=== PATIENT | male | born 1935 | race Caucasian/White ===

== ENCOUNTER 2019-07-19 12:38 | Outpatient (CLI) | payer MEDICARE, SELFPAY ==
--- NOTE | ~2019-07-19 | US_ITS ---
EXAMINATION: US renal BI DATE: 07/19/2019 13:12 INDICATION: Chronic TECHNIQUE: Multiple grayscale and Doppler ultrasound images of the kidneys were obtained. COMPARISON: None. FINDINGS: The right kidney measures 10.2 x 4.1 x 4.9 cm. The left kidney measures 10.1 x 4.3 x 4.9 cm . The kidneys demonstrate increased parenchymal echogenicity. There is mild cortical atrophy of the k idneys. There is no hydronephrosis. The bladder is normal. IMPRESSION: 1. Medical renal disease Reviewed, dictated and finalized at location A. IMPRESSION: 1. Medical renal disease
== END 2019-07-19 12:39 | disposition home or self-care (01) ==
LOC: ANHIMG 12:48
PROVIDERS: PCP Family Medicine; Visit Provider Internal Medicine Nephrology
DX: N18.3 Chronic kidney disease, stage 3 (moderate) (principal)
CPT/HCPCS: 76775

== ENCOUNTER 2020-06-01 08:20 | Inpatient (IN) | payer MEDICARE, SELFPAY ==
[2020-06-01] VITALS (18 sets, daily range): BP systolic 111–171; BP diastolic 61–110; PULSE 81–132; RESP 16–29; TEMP 36.6–37.2; O2SAT 94–97; BMI 28.2
--- NOTE | 2020-06-01 | ECHO_ITS ---
Patient Info Name: Bunny Shi Age: 84 years : 1935 Gender: Male Ht: 69 in Wt: 192 lbs BSA: 2.08 m2 HR: 110 bpm BP: 145 / 92 mmHg Heart Rhythm: Atrial Fibrillation Technical Quality: Fair Exam Date: 06/01/2020 3:41 PM Exam Location: [facility] Patient Status: Inpatient Admit Date: 06/01/2020 Staff Ordering Physician: Silvia Ye NP Director Of Home Health Services: Waqas Barber RDCS Attending Provider: Kellie Weller MD Referring Physician: Ephraim MCWILLIAMS; Exam Type: CA echo dop color flow w con Study Info Indications R06.02 - Shortness of breath Complete two-dimensional, color flow and Doppler transthoracic echocardiogram is performed with contrast to opacify the left ventricle and to improve the deliniation of the left ventricle endocardial borders. Contrast/Agitated Saline Contrast/Ag. Saline: Definity Amount: 2.00 ml Administered By: Elvia Ruvalcaba RN Existing IV Access: Yes History/Risk Factors Atrial fibrillation; SOB, CAD, CKD3, HTN, pHTN. Summary 1. Left ventricular chamber dimension is normal. 2. Left ventricular systolic function is normal, estimated at 60-65%. 3. There is mildly increased left ventricular wall thickness. 4. Left atrial chamber dimension is severely enlarged. 5. There is mild aortic valve stenosis with a peak velocity of 190.26 cm/s, mean gradient of 6 mmHg, and aortic valve area of 1.60 cm2. 6. There is no aortic valve regurgitation. 7. There is severe aortic valve calcification. 8. There is trace tricuspid valve regurgitation. 9. Mild pulmonary hypertension, estimated pulmonary arterial systolic pressure is 42 mmHg. Left Ventricle Left ventricular chamber dimension is normal. Left ventricular systolic function is normal, estimated at 60-65%. There is mildly increased left ventricular wall thickness. The left ventricular diastolic function is indeterminate. Right Ventricle Right ventricular chamber dimension is normal. Right ventricular systolic function is normal. Left Atria Left atrial chamber dimension is severely enlarged. Right Atria Right atrial chamber dimension is not well visualized. Aortic Valve The aortic valve is probable trileaflet. There is mild aortic valve stenosis with a peak velocity of 190.26 cm/s, mean gradient of 6 mmHg, and aortic valve area of 1.60 cm2. There is no aortic valve regurgitation. There is severe aortic valve calcification. Pulmonic Valve The pulmonic valve is not well visualized. Mitral Valve The mitral valve has thickened leaflets. There is trace mitral valve regurgitation. The mitral valve annulus is severely calcified. Tricuspid Valve The tricuspid valve leaflets are normal. There is trace tricuspid valve regurgitation. Mild pulmonary hypertension, estimated pulmonary arterial systolic pressure is 42 mmHg. Pericardium/Pleural The pericardium appears normal. There is trivial pericardial effusion. Inferior Vena Cava Dilated inferior vena cava with >50% collapse upon inspiration consistent with elevated right atrial pressure, 10 mmHg. Aorta The aortic root size at the sinus of Valsalva is mildly dilated. There is mild aortic atherosclerosis. Left Ventricular Outflow Tract Name Value Normal LVOT 2D
--- NOTE | ~2020-06-01 | XR_ITS ---
EXAMINATION: XR chest 1V portable DATE: 06/08/2020 05:57 INDICATION: Pneumonia. TECHNIQUE: A single frontal view of the chest was obtained. COMPARISON: Chest single view 06/04/20 FINDINGS: There are airspace opacities in right mid and upper lung zones. No pleural effusion or pneu mothorax. The heart size is normal. IMPRESSION: 1. Airspace opacities in right mid and upper lung zones with interval improvement, consistent with pn eumonia. Reviewed, dictated and finalized at location A. OR MECHANICAL PROJECT MANAGER IMPRESSION: 1. Airspace opacities in right mid and upper lung zones with interval improveme nt, consistent with pneumonia.
--- NOTE | ~2020-06-01 | XR_ITS ---
EXAMINATION: XR chest 1V portable EXAM DATE: 06/01/2020 09:17 INDICATION: Dizziness. TECHNIQUE: Portable AP frontal chest x-ray was obtained. There is no prior study for comparison. FINDINGS: There is subsegmental ill-defined right upper lobe acute airspace disease appearance most c onsistent with pneumonia. Consider 2-4 week follow-up chest x-ray. The lungs are otherwise clear. There are no pleural effusions. The cardiomediastinal silhouette is within normal limits. There is no pneumothorax suspected. The bones and soft tissues are unremarkab le. IMPRESSION: Ill-defined segment right upper lobe airspace disease, likely pneumonia. Follow-up indica liliya. Reviewed, dictated and finalized at location B. GRATED LOGISTICS SUPPORT MANAGER IMPRESSION: Ill-defined segment right upper lobe airspace disease, likely pneum onia. Follow-up indicated.
--- NOTE | ~2020-06-01 | US_ITS ---
EXAMINATION: US venous doppler [facility] DATE: 06/01/2020 14:33 INDICATION: Shortness of breath. TECHNIQUE: Grayscale ultrasound images without and with compression and Doppler ultrasound images of the bilateral lower extremity veins were obtained. COMPARISON: None. FINDINGS: The visualized portions of right common femoral vein, profunda (deep) femoral vein, femoral vein, pop liteal vein, peroneal veins, posterior tibial veins, and greater saphenous vein outflow are patent. The visualized portions of left common femoral vein, profunda femoral vein, femoral vein, popliteal v ein, peroneal veins, posterior tibial veins, and greater saphenous vein outflow are patent. IMPRESSION: 1. No deep venous thrombosis. Reviewed, dictated and finalized at location A. N WASHER
--- NOTE | ~2020-06-01 | XR_ITS ---
EXAMINATION: XR chest 1V portable DATE: 06/04/2020 11:01 INDICATION: Fever. Pneumonia. TECHNIQUE: A single frontal view of the chest was obtained. COMPARISON: Chest single view 06/01/2020 FINDINGS: There are airspace opacities in right mid and upper lung zones. No pleural effusion or pneu mothorax. The heart size is normal. IMPRESSION: 1. Worsened airspace opacities in right mid and upper lung zones, consistent with pneumonia. Reviewed, dictated and finalized at location A. ON BUYER IMPRESSION: 1. Worsened airspace opacities in right mid and upper lung zones, consistent wi th pneumonia.
--- NOTE | ~2020-06-01 | NM_ITS ---
EXAMINATION: NM pulmonary perfusion DATE: 06/01/2020 14:07 INDICATION: Shortness of breath. TECHNIQUE: 5.5 mCi Tc-99m MAA was administered intravenously for perfusion images. Scintigraphic laura ges of the chest were obtained. COMPARISON: Chest single view 06/01/2020 FINDINGS: Perfusion images show moderate sized and large defects in right upper lobe. There are moderate-sized defects in left upper lobe and small defects in left lower lobe. IMPRESSION: 1. Nondiagnostic (intermediate probability for pulmonary embolism). Reviewed, dictated and finalized at location A. L MAKER
--- NOTE | ~2020-06-01 | US_ITS ---
US abdomen limited INDICATION: Elevated liver enzyme tests. PROCEDURE: Realtime right upper abdominal ultrasound. COMPARISON: No prior studies for comparison. FINDINGS: The pancreas is normal without focal mass or pancreatic ductal dilation. Liver echotexture is normal without focal mass or intrahepatic biliary dilatation. There is normal directional flow i n the portal vein. The gallbladder is normal without stones, gallbladder wall thickening or pericholecystic fluid. Comm on bile duct measures 6 mm. No sonographic Brown's sign. IMPRESSION: 1: Normal limited abdominal ultrasound. Reviewed, dictated and finalized at location A. TSPERSONS
--- NOTE | ~2020-06-01 | CT_ITS ---
EXAMINATION: CT brain wo con DATE: 06/01/2020 10:20 INDICATION: Dizziness. TECHNIQUE: Computed tomography (CT) of the head was performed without intravenous contrast. The mA wa s adjusted according to patient size. Iterative reconstruction technique was employed. The dose-lengt h product was 681.00 mGy-cm. COMPARISON: Brain MRI 12/22/2016 FINDINGS: There are scattered areas of low attenuation in the cerebral white matter, which is within normal limits for the patient's age. There is no intracranial hemorrhage, acute infarction, or abnorm al intracranial mass lesion. The ventricles are normal in size. There are likely changes of ocular le ns replacement surgeries. There is mild mucosal thickening in paranasal sinuses. The mastoid air cell s are normal. IMPRESSION: 1. Normal aging brain. Reviewed, dictated and finalized at location A. BBLIZER IMPRESSION: 1. Normal aging brain.
--- NOTE | 2020-06-01 08:27 | ECG_ITS ---
Measurements Intervals Evans Rate: 129 P: WI: 0 QRS: 90 QRSD: 134 T: -24 QT: 318 QTc: 466 Interpretive Statements ATRIAL FIBRILLATION WITH RAPID VENTRICULAR RESPONSE RIGHT BUNDLE BRANCH BLOCK BASELINE ARTIFACT- I, II, III, AVR, AVF, V1-V3, V6 ATYPICAL ECG Electronically Signed On 06-01-2020 8:38:39 FIREFIGHTER MARINE by Hakan Paulson D.O.
[2020-06-01 08:36] LABS: Basophils Percent Auto 0.3 % (0.2-1.2); Hematocrit 38.2 % (42.0-52.0); Hemoglobin 12.8 g/dL (14.0-18.0); Immature Granulocyte Absolute 0.04 K/mm3 (0.00-0.031); Immature Granulocyte Percent A 0.4 % (0-0.5); Lymphocytes Absolute Auto 0.65 K/mm3 (0.9-3.2); Mean Corpuscular HGB Conc 33.5 g/dl (32-36); Mean Corpuscular Hemoglobin 29.8 pg (26-34); Mean Platelet Volume 11.5 fl (7.4-10.4); Monocytes Percent Auto 10.7 % (2.6-8.5); Neutrophils Absolute Auto 7.6 K/mm3 (1.3-6.7); Neutrophils Percent Auto 81.6 % (45.5-73.1); Platelet Count Result 149 k/mm3 (150-375); Red Blood Count 4.29 M/mm3 (4.6-6.20); Red Cell Distribution Width 15.3 % (11.5-14.5); White Blood Count 9.3 K/mm3 (4.5-10.0)
[2020-06-01 08:50] LABS: Anion Gap 8 mmol/L (8-16); Blood Urea Nitrogen 39 mg/dL (9-20); Calcium 8.2 mg/dL (8.4-10.2); Carbon Dioxide 27 mmol/L (22-30); Chloride 101 mmol/L (98-107); Estimated CRCL calculation 24 ml/min; Estimated Glomerular Filt Rate 29; Glucose 127 mg/dL (75-110); Potassium 3.7 mmol/L (3.4-5.0); Sodium 136 mmol/L (137-145)
[2020-06-01] MEDS: dilTIAZem HCl INJ 25 MG/5 ML VIAL 10 MG IV PUSH (08:55)
--- NOTE | 2020-06-01 08:57 | ED.DIZZY ---
HPI - Dizziness General Chief Complaint: Dizziness Stated Complaint: dizziness Time Seen by Provider: 06/01/20 08:48 Source: patient and family Mode of arrival: ambulatory Limitations: no limitations History of Present Illness HPI Narrative: 84 years old white male presents with dizziness for a while got worse over the last 2 weeks. Patient reports sometimes if he bends over he falls down on the floor. Patient also report shortness of breath and chest pain for years. History of atrial fibrillation on Coumadin. Currently patient is asymptomatic while laying down in bed. Patient denies history of Covid or exposure to anybody having Covid. Patient denies focal neuro deficit MD elicited complaint: dizziness and lightheadedness Related Data Home Medications Medication Instructions Recorded Confirmed aspirin 81 mg chewable tablet 81 mg PO DAILY 06/13/19 02/05/20 cholecalciferol (vitamin D3) 50 2,000 unit PO DAILY 06/13/19 02/05/20 mcg (2,000 unit) capsule mecobalamin (vitamin B12) 1,000 mcg PO 06/13/19 02/05/20 mcg chewable tablet propylene glycol 0.6 % eye drops 1 drop EACH EYE BID PRN ml 06/13/19 02/05/20 atorvastatin 40 mg tablet 80 mg PO DAILY tablet 11/13/19 02/05/20 gabapentin 300 mg capsule 300 mg PO BID cap 11/13/19 02/05/20 isosorbide mononitrate 30 mg 60 mg PO DAILY tablet 11/13/19 02/05/20 tablet,extended release 24 hr sotalol 80 mg tablet 40 mg PO BID tablet 11/13/19 02/05/20 Allergies Allergy/AdvReac Type Severity Reaction Status Date / Time No Known Allergies Allergy Verified 06/01/20 08:28 Review of Systems Review of Systems: Narrative: CONSTITUTIONAL: Denies fever, chills, or sweats. EYES: Denies visual changes, redness, or discharge. ENT: Denies rhinorrhea, congestion, sore throat, or otalgia. CARDIOVASCULAR: Denies chest pain, palpitations, or edema. RESPIRATORY: Denies cough or dyspnea. GASTROINTESTINAL: Denies abdominal pain, nausea, vomiting, or diarrhea. GENITOURINARY: Denies dysuria or hematuria. SKIN: Denies rash or itching. MUSCULOSKELETAL: Denies back pain, joint pain, or myalgia. NEUROLOGIC: Denies headache, numbness, or weakness. PSYCHIATRIC: Denies anxiety or depression. [facility] Past Medical History Medical History (Updated 06/01/20 @ 10:11 by Monse Jarvis MD) BMI 28.0-28.9,adult BPH w/o urinary obs/LUTS CAD in [place] artery Carpal tunnel syndrome 2016 CKD (chronic kidney disease) stage 3, GFR 30-59 ml/min Cubital tunnel syndrome 2016 Dizziness and giddiness Dyslipidemia, goal LDL below 100 Essential (primary) hypertension GERD (gastroesophageal reflux disease) Glaucoma History of stroke Hx of supraventricular tachycardia Hypogonadism in male 08/2011 Mild aortic stenosis Neuropathy Paroxysmal atrial fibrillation Peripheral neuropathy Pre-diabetes 02/01/2017 Pulmonary hypertension Stroke Supraventricular tachycardia Umbilical hernia without mention of obstruction or gangrene 12/11/2017 Unspecified osteoarthritis, unspecified site Vitamin B12 deficiency Vitamin D deficiency Surgical History Surgical History History of shoulder surgery right - around 1989 Hx of total knee arthroplasty right - 2006 Dr. Brad George at [facility] Family History Family History Mother Hypertension Cerebrovascular accident Family history of malignant neoplasm of breast in first degree relative Father Family history of coronary artery disease Social History Social History Smoking status: Former smoker Second hand tobacco smoke exposure: No Smoking end date: 05/01/1965 Alcohol intake: current Substance use: never Substance use type: does not use Exam Narrative: Exam Narrative: General appearance: Well-developed, well-nourished Skin: Normal color Head: Normocephalic, nontraumatic Eyes: Clear conjun
[2020-06-01 09:25] LABS: Alanine Aminotransferase 45 U/L (4-50); Albumin Level 3.7 g/dL (3.5-5.1); Alkaline Phosphatase 70 U/L (38-126); Aspartate Amino Transferase 140 U/L (17-59)
[2020-06-01 09:29] LABS: INR 1.3; Prothrombin Time 16.5 Seconds (11.1-14.7)
[2020-06-01 09:43] LABS: Troponin I 0.056 ng/mL (0.000-0.034)
--- NOTE | 2020-06-01 11:46 | ADMGEN ---
This patient, Bunny Shi Jr., was admitted to IMU Room 203-01. Patient/family oriented to hospital policies and general routines including ID bracelet, bed and alarms, visiting hours, pain management, procedures, bathroom and other care routines, personal items, smoking policy, room service/diet, and visiting hours. Information on how to activate the Rapid Response Team has been discussed. Patient/Family are encouraged to report perceived risks to care and to ask questions if they do not understand what they are told or what they should do.
[2020-06-01 12:50] LABS: Troponin I 0.069 ng/mL (0.000-0.034)
--- NOTE | 2020-06-01 13:16 | PM.IMHP ---
H&P: HPI History of Present Illness Date/Time: 06/01/20 13:16 Chief Complaint: Shortness of breath and dizziness Narrative: Bunny Shi Jr. is a 84 year old male who has a history of atrial fibrillation that is paroxysmal. He is on Coumadin and states that he takes his Coumadin routinely. The patient states that he has been taking all his medications as prescribed for his AFib. He stated that Dr. Nguyễn is his sewer line photo inspector. The patient stated that he has been short of breath for approximately 1 week and is just getting worse. I asked him if it was a gradual thing AFib with a sudden onset he believes that it was a gradual thing. He stated he is more short of breath with exertion but I had noticed that the patient short of breath just laying there. He has no fever or chills no cough. He said he has not been exposed to COVID-19 that he is aware of. He does not have a cough, nausea or vomiting, or chills. The patient stated that he has been feeling dizzy for couple weeks now. He states when he leans forwards or bends over he feels like he is going to fall over. The patient did have a head CT which was negative and was read as a normal aging brain per Radiology. Upper lobe airspace disease likely pneumonia. The patient denies ever being diagnosed with congestive heart failure. He has a normal white count and is not coughing. So I do not suspect that this is pneumonia. His H&H is 12.8 and 38.2. But I am not sure where his baseline is his BUN is 39 creatinine is 2.2. First troponin is 0.069. The patient denies any chest pain. Cardiology has been consulted. The patient's INR is 1.2 which is subtherapeutic. Patient was given a dose of subcu Lovenox in the emergency room. The patient was found to be in AFib RVR. His sewer line photo inspector has been consulted. IV Cardizem push and then started on a drip. And he was also given subcu Lovenox. The patient is currently on room air. His heart rate is in the lower 100s. Patient is being admitted for observation on the date of service of 06/01/2020 Review of Systems Review of Systems: All systems reviewed & are unremarkable except as noted in HPI and below Constitutional: Constitutional: Reports as per HPI and Reports no additional constitutional complaints Eyes: Eyes: Reports as per HPI and Reports no additional eye complaints ENT: Reports system reviewed and no additional complaints, except as documented and Reports Normal hearing present Cardiovascular: Cardiovascular: Reports no additional cardiovascular complaints Respiratory: Respiratory: Reports no additional respiratory complaints and Reports no additional respiratory complaints Gastrointestinal: Gastrointestinal: Reports as per HPI and Reports no additional gastrointestinal complaints Musculoskeletal: Musculoskeletal: Reports no additional musculoskeletal complaints Integumentary/Breasts: Skin/Breast: Reports system reviewed and no additional complaints, except as docu and Reports as per HPI Neurologic: Reports system reviewed and no additional complaints, except as documented, Reports as per HPI and Reports Normal hearing present Psychiatric: Psychiatric: Reports no additional psychiatric complaints and Reports as per HPI Endocrine: Endocrine: Reports no additional endocrine complaints Hematologic/Lymphatic: Hematologic/Lymphatic: Reports no additional hematologic/lymphatic complaints Allergic/Immunologic: Allergic/Immunologic: Reports no additional allergic/immunologic complaints PMFSH Past Medical History Medical History BMI 28.0-28.9,adult BPH w/o urinary obs/LUTS CAD in [place] artery Carpal tunnel syndrome 2016 CKD (chronic kidney disease) stage 3, GFR 30-59 ml/min Cubital tunnel syndrome 2016 Dizziness and giddiness Dyslipidemia, goal LDL below 100 Essential (primary) hypertension GERD (gastroesophageal reflux disease) Glaucoma History of stroke Hx of supraventr
--- NOTE | 2020-06-01 14:18 | PCPTNOTE ---
Attempted PT evaluation this afternoon, patient at nuclear medicine, will attempt again later.
[2020-06-01 15:02] LABS: Anion Gap 7 mmol/L (8-16); Blood Urea Nitrogen 36 mg/dL (9-20); Calcium 8.3 mg/dL (8.4-10.2); Carbon Dioxide 30 mmol/L (22-30); Chloride 99 mmol/L (98-107); Estimated CRCL calculation 21 ml/min; Estimated Glomerular Filt Rate 25; Glucose 142 mg/dL (75-110); Potassium 3.7 mmol/L (3.4-5.0); Sodium 136 mmol/L (137-145)
--- NOTE | 2020-06-01 15:31 | PM.CNCAR ---
Assessment and Plan Assessment and plan (1) Atrial fibrillation with rapid ventricular response: Code(s): I48.91 - Unspecified atrial fibrillation Status: Acute Assessment and Plan: Previously controlled on low-dose sotalol 40 mg b.i.d.. SOB may in part secondary A.Fib. Patient has chronic bradycardia heart rate generally in the 50s as an outpatient. Patient claims compliance with his medications but presented with atrial fibrillation with rapid ventricular response. Chest x-ray suggestive right upper lobe consolidation possible pneumonia. Subtherapeutic INR 1.2 presentation. Enoxaparin bridging, continue warfarin goal INR 2-3. Heart rate better controlled on diltiazem infusion. Transition to oral regimen metoprolol tartrate 25 mg b.i.d. and observe tolerance.. Given renal failure progression will not resume sotalol. Check magnesium level, TSH If cardioversion deemed necessary he would require MITZI guidance as he presented subtherapeutic for an unknown period of time. (2) SOB (shortness of breath): Code(s): R06.02 - Shortness of breath Status: Acute Assessment and Plan: Patient does not appear to be in significant decompensated heart failure. Shortness of breath possibly related to atrial fibrillation and or right upper lobe infiltrate on chest x-ray. He has neutrophilic shift and a CBC although no elevation in white blood cell count or fever. Will check BNP, TSH. (3) Elevated troponin: Code(s): R77.8 - Other specified abnormalities of plasma proteins Status: Acute Assessment and Plan: Mild troponin elevation non VA troponin elevation secondary to renal failure not ACS or acute plaque rupture. Will review 2D echocardiogram when available to assess LV function, wall motion, pulmonary pressures, valve pathology. Further recommendation to follow. (4) CAD in [place] artery: Code(s): I25.10 - Atherosclerotic heart disease of hughes coronary artery without angina pectoris Status: Acute Assessment and Plan: No clear anginal symptoms. Continue statin, aspirin. (5) Dizziness and giddiness: Code(s): R42 - Dizziness and giddiness Status: Acute Assessment and Plan: Chronic but worse prior to presentation. Check orthostatic vital signs. Clinically patient appears to be somewhat dry. May recommend gentle hydration depending when orthostatics. Patient is not hypotensive today. However, he reports labile blood pressures historically as an outpatient. Will reintroduce antianginal therapy slowly based on BP, orthostatics and patient's symptoms. CT head normal aging brain without acute or old stroke apparent. PT OT Check urinalysis (6) CKD (chronic kidney disease) stage 3, GFR 30-59 ml/min: Code(s): N18.3 - Chronic kidney disease, stage 3 (moderate) Status: Acute Assessment and Plan: Mild acute on chronic renal failure baseline creatinine previously around 2. Followed by Nephrology as an outpatient. Monitor renal function closely. Avoid nephrotoxic agents. Hold on resuming losartan hydrochlorothiazide defer the stabilized. (7) Pulmonary hypertension: Code(s): I27.20 - Pulmonary hypertension, unspecified Status: Acute Assessment and Plan: 2D echo pending. (8) Subtherapeutic international normalized ratio (INR): Code(s): R79.1 - Abnormal coagulation profile Status: Acute Assessment and Plan: Subtherapeutic goal INR 2-3. Bridge with enoxaparin increased warfarin monitor for bleeding. (9) History of stroke: Code(s): Z86.73 - Personal history of transient ischemic attack (TIA), and cerebral infarction without residual deficits Status: Acute Assessment and Plan: Chronic dizziness may be a function of prior stroke, however, progressed nonetheless. History of Present Illness History of Present Illness Consult date/time: Date of service: 06/01/20 15:31 Cardiology consu
[2020-06-01] MEDS: ENOXAPARIN 100 MG/ML SYRINGE 85 MG SUB-Q (15:40)
[2020-06-01] MEDS: PERFLUTREN LIPID MICROSPHERES 1.5 ML VIAL DILUTED TO 10 ML TOTAL VOLUME IV PUSH (16:00)
[2020-06-01 16:20] LABS: D Dimer 1.44 ug/mL (<0.48)
[2020-06-01] MEDS: METOPROLOL TARTRATE 25 MG TABLET PO ×2 (17:22→23:19)
[2020-06-01 17:51] LABS: Add Urine Microscopic? YES; Appearance Urine Cloudy (Clear); Bacteria Urine Trace /hpf; Bilirubin Urine Negative (Negative); Blood Urine 3+ (Negative); Color Urine Yellow (Yellow); Glucose Urine UA Negative (Negative); Ketones Urine Negative (Negative); Leukocyte Esterase Ur Negative LEU/UL (NEGATIVE); Mucus Urine Rare /lpf; Nitrate Urine Negative (Negative); Protein Urine 2+ mg/dL (Negative); Specific Grav Ur 1.016 (1.001-1.035); Squamous Epithelial Cell Urine Rare /hpf (Few); WBC Urine 0-3 /hpf (0-3)
[2020-06-01 18:32] LABS: Magnesium 1.4 mg/dL (1.6-2.3)
[2020-06-01 18:39] LABS: NT Pro B Type Natriuretic Pept 4640 PG/ML (5-100)
[2020-06-02] VITALS (26 sets, daily range): BP systolic 102–155; BP diastolic 64–94; PULSE 80–121; RESP 16–24; TEMP 36.4–37.7; O2SAT 94–98
[2020-06-02 04:49] LABS: Basophils Percent Auto 0.4 % (0.2-1.2); Hematocrit 35.7 % (42.0-52.0); Hemoglobin 11.9 g/dL (14.0-18.0); Immature Granulocyte Absolute 0.04 K/mm3 (0.00-0.031); Immature Granulocyte Percent A 0.5 % (0-0.5); Lymphocytes Absolute Auto 0.87 K/mm3 (0.9-3.2); Mean Corpuscular HGB Conc 33.3 g/dl (32-36); Mean Corpuscular Hemoglobin 29.7 pg (26-34); Mean Platelet Volume 11.8 fl (7.4-10.4); Monocytes Percent Auto 12.2 % (2.6-8.5); Neutrophils Percent Auto 75.9 % (45.5-73.1); Platelet Count Result 145 k/mm3 (150-375); Red Blood Count 4.01 M/mm3 (4.6-6.20); White Blood Count 7.9 K/mm3 (4.5-10.0)
[2020-06-02 05:04] LABS: INR 1.3; Prothrombin Time 16.5 Seconds (11.1-14.7)
[2020-06-02 05:16] LABS: Anion Gap 7 mmol/L (8-16); Blood Urea Nitrogen 44 mg/dL (9-20); CRP 19.5 mg/dL (<1.0); Calcium 8.1 mg/dL (8.4-10.2); Carbon Dioxide 28 mmol/L (22-30); Chloride 102 mmol/L (98-107); Estimated CRCL calculation 22 ml/min; Estimated Glomerular Filt Rate 26; Glucose 108 mg/dL (75-110); Lipase 223 U/L (23-300); Magnesium 1.4 mg/dL (1.6-2.3); Potassium 3.5 mmol/L (3.4-5.0); Sodium 137 mmol/L (137-145)
[2020-06-02] MEDS: METOPROLOL TARTRATE 25 MG TABLET PO (08:57)
[2020-06-02] MEDS: ASPIRIN 81 MG CHEWABLE TABLET PO (08:57)
[2020-06-02] MEDS: MAGNESIUM SULFATE 3GM/D5W100ML 3 GM/100 ML BAG IVPB (10:59)
--- NOTE | 2020-06-02 14:24 | PM.IMPN ---
Progress Note: A&P Assessment and Plan (1) Atrial fibrillation with rapid ventricular response: Code(s): I48.91 - Unspecified atrial fibrillation Status: Acute Assessment and Plan: possibly from underlying pneumonia. Will start antibiotics for infection. patient was initially started on a Cardizem drip, but Cardiology switched him to Metoprolol 50 mg Q8hrs. Tele shows Afib with RVR at 120-130's. Normal EF 60-65%, mild LVH, mild aortic valve stenosis, severe aortic valve calcification. Mild pulmonary hypertension. The patient has been on Coumadin however today is INR subtherapeutic. Continue subcu Lovenox that is renally dosed while cardiology increases Coumadin Will check PT/INR daily. Continue monitoring. Appreciate Cardiology input. Will continue with Lovenox to we can bridge over to a therapeutic Coumadin. (2) SOB (shortness of breath): Code(s): R06.02 - Shortness of breath Status: Acute Assessment and Plan: Patient does report some shortness of breath, deep productive cough, and chest x-ray showed possible pneumonia in right upper lung field. Today is vitals did show, tachycardia, some tachypnea, and low-grade fever 99.7. Will order blood cultures Will start IV antibiotics for community-acquired pneumonia with azithromycin and IV ceftriaxone Sputum culture will be obtained Cornet will be ordered DuoNeb treatments with ipratropium and Xopenex Continue monitoring. Continue monitoring respiratory status and vitals. (3) Unspecified kidney failure: Qualifiers: Renal failure chronicity: unspecified chronicity Qualified Code(s): N19 - Unspecified kidney failure Code(s): N19 - Unspecified kidney failure Status: Acute Assessment and Plan: Patient stated that he does have chronic kidney disease was noted in his chart he has stage III. Unsure of patient's baseline creatinine, but he has been stable at 2.1 to 2.5 last few days. He appears euvolemic at this time. Continue to monitor. (4) Peripheral neuropathy: Qualifiers: Peripheral neuropathy type: polyneuropathy, unspecified Qualified Code(s): G62.9 - Polyneuropathy, unspecified Code(s): G62.9 - Polyneuropathy, unspecified Status: Acute Assessment and Plan: Continue with home medications. (5) Dizziness and giddiness: Code(s): R42 - Dizziness and giddiness Status: Acute Assessment and Plan: He reports the dizziness has been going on for a while but yesterday he decided to come in for further evaluation due to worsening symptoms as well as some confusion, generalized weakness, and he did trip and fall over the director dermatology. He denies any trauma other than some discomfort to his left hip area. Continue PT and OT therapy Continue checking orthostatics Q shift. Continue monitoring. (6) Dyslipidemia, goal LDL below 100: Code(s): E78.5 - Hyperlipidemia, unspecified Status: Acute Assessment and Plan: Continue with atorvastatin Time Spent With Patient Time with patient: 25 - 35 minutes Subjective Date/time seen: 06/02/20 14:24 Interval history: Date of service 06/02/2020: Patient states he feels about the same today, feels off . He still feels weak, fatigued and slight confusion. He does have a cough which has been around for about 1 week and feels pretty deep in his chest. When he does have production from his cough, it is huber color. He does report some slight warmth to his face and some chills at times. He denies any chest pain. He denies any palpitations, leg swelling, calf pain, nausea, vomiting, abdominal pain or any other symptoms at this amber
--- NOTE | 2020-06-02 15:34 | PM.PNCARD ---
Progress Note: A&P Assessment and Plan (1) Atrial fibrillation with rapid ventricular response: Code(s): I48.91 - Unspecified atrial fibrillation Status: Acute Assessment and Plan: Previously controlled on low-dose sotalol 40 mg b.i.d.. SOB may in part secondary A.Fib. Patient has chronic bradycardia heart rate generally in the 50s as an outpatient. Patient claims compliance with his medications but presented with atrial fibrillation with rapid ventricular response. Chest x-ray suggestive right upper lobe consolidation possible pneumonia. Off sotalol due to ineffectiveness, low-dose and inability to increase safely due to renal failure. Alternative antiarrhythmic such as amiodarone but would need additional washout to improve safety profile. Will attempt to optimize control with beta-idris therapy for now. Change to 50 mg Q p.o. q.8 hours. Patient has previously tolerate AFib reasonably well and has been paroxysmal historically. Subtherapeutic INR 1.2 presentation. Enoxaparin bridging, change to Eliquis 2.5 mg b.i.d. creatinine > 1.5, age > 80. Magnesium low, replete as appropriate. If cardioversion deemed necessary he would require MITZI guidance as he presented subtherapeutic for an unknown period of time. (2) SOB (shortness of breath): Code(s): R06.02 - Shortness of breath Status: Acute Assessment and Plan: Patient does not appear to be in significant decompensated heart failure. Suspect related to underlying infiltrate possible pneumonia possibly AFib with RVR but he has tolerated this well in the past paroxysmally. He has neutrophilic shift and a CBC although no elevation in white blood cell count or fever. Will check BNP, TSH. 2D echo reviewed EF 60 65%, mild aortic stenosis severe left atrial enlargement. As a result, Cardioversion would not be likely to be effective. (3) Elevated troponin: Code(s): R77.8 - Other specified abnormalities of plasma proteins Status: Acute Assessment and Plan: Mild troponin elevation non [place] troponin elevation secondary to renal failure not ACS or acute plaque rupture. Will review 2D echocardiogram when available to assess LV function, wall motion, pulmonary pressures, valve pathology. Further recommendation to follow. (4) CAD in [place] artery: Code(s): I25.10 - Atherosclerotic heart disease of [place] coronary artery without angina pectoris Status: Acute Assessment and Plan: No clear anginal symptoms. Continue statin, aspirin. (5) Dizziness and giddiness: Code(s): R42 - Dizziness and giddiness Status: Acute Assessment and Plan: Clinically patient appears to be somewhat dry. May recommend gentle hydration depending when orthostatics. Patient is not hypotensive today. However, he reports labile blood pressures historically as an outpatient. Will reintroduce antianginal therapy slowly based on BP, orthostatics and patient's symptoms. CT head normal aging brain without acute or old stroke apparent. PT OT Check urinalysis (6) CKD (chronic kidney disease) stage 3, GFR 30-59 ml/min: Code(s): N18.3 - Chronic kidney disease, stage 3 (moderate) Status: Acute Assessment and Plan: Mild acute on chronic renal failure baseline creatinine previously around 2. Followed by Nephrology as an outpatient. Monitor renal function closely. Avoid nephrotoxic agents. Hold on resuming losartan hydrochlorothiazide defer the stabilized. (7) Pulmonary hypertension: Code(s): I27.20 - Pulmonary hypertension, unspecified Status: Acute Assessment and Plan: Mild by echo RVSP 42 mm Hg. (8) Subtherapeutic international normalized ratio (INR): Code(s): R79.1 - Abnormal coagulation profile Status: Acute Assessment and Plan: Subtherapeutic goal INR 2-3. Bridge with enoxaparin increased warfarin monitor for bleeding. (9) History of stroke: Code(s): Z86.73 -
[2020-06-02] MEDS: ENOXAPARIN 100 MG/ML SYRINGE 85 MG SUB-Q (16:00)
[2020-06-02] MEDS: METOPROLOL TARTRATE 50 MG TAB PO ×2 (16:00→20:42)
[2020-06-02] MEDS: IPRATROPIUM BR 0.02% INH SOLN 0.5 MG/2.5 ML VIAL INHALATION ×2 (16:15→20:15)
[2020-06-02] MEDS: MELATONIN 3 MG TABLET PO (20:43)
[2020-06-03] VITALS (31 sets, daily range): BP systolic 117–160; BP diastolic 68–102; PULSE 66–129; RESP 16–22; TEMP 36.7–37.7; O2SAT 93–99
[2020-06-03] MEDS: IPRATROPIUM BR 0.02% INH SOLN 0.5 MG/2.5 ML VIAL INHALATION ×4 (02:05→20:16)
[2020-06-03 04:41] LABS: Basophils Percent Auto 0.2 % (0.2-1.2); Hematocrit 34.9 % (42.0-52.0); Hemoglobin 11.9 g/dL (14.0-18.0); Immature Granulocyte Absolute 0.04 K/mm3 (0.00-0.031); Immature Granulocyte Percent A 0.5 % (0-0.5); Lymphocytes Absolute Auto 0.77 K/mm3 (0.9-3.2); Lymphocytes Percent Auto 9.2 % (18.3-44.2); Mean Corpuscular HGB Conc 34.1 g/dl (32-36); Mean Corpuscular Hemoglobin 29.8 pg (26-34); Mean Corpuscular Volume 87.5 fl (80-100); Mean Platelet Volume 11.8 fl (7.4-10.4); Monocytes Absolute Auto 1.1 K/mm3 (0.1-0.6); Monocytes Percent Auto 13.2 % (2.6-8.5); Neutrophils Absolute Auto 6.5 K/mm3 (1.3-6.7); Neutrophils Percent Auto 76.9 % (45.5-73.1); Platelet Count Result 147 k/mm3 (150-375); Red Blood Count 3.99 M/mm3 (4.6-6.20); Red Cell Distribution Width 14.8 % (11.5-14.5); White Blood Count 8.4 K/mm3 (4.5-10.0)
[2020-06-03 04:57] LABS: Partial Thromboplastin Time 42.9 SECONDS (22.3-36.8)
[2020-06-03 04:59] LABS: INR 1.1; Prothrombin Time 15.2 Seconds (11.1-14.7)
[2020-06-03 05:15] LABS: Anion Gap 7 mmol/L (8-16); Blood Urea Nitrogen 54 mg/dL (9-20); Calcium 8.1 mg/dL (8.4-10.2); Carbon Dioxide 29 mmol/L (22-30); Chloride 99 mmol/L (98-107); Estimated CRCL calculation 19 ml/min; Estimated Glomerular Filt Rate 23; Glucose 125 mg/dL (75-110); Potassium 3.3 mmol/L (3.4-5.0); Sodium 135 mmol/L (137-145)
[2020-06-03 05:25] LABS: CRP 17.5 mg/dL (<1.0)
[2020-06-03] MEDS: METOPROLOL TARTRATE 50 MG TAB PO (05:46)
[2020-06-03 08:15] LABS: Albumin Level 3.4 g/dL (3.5-5.1)
[2020-06-03] MEDS: LACTATED RINGERS 1,000 ML 85 ML IV CONT ×2 (09:46→20:59)
[2020-06-03] MEDS: ASPIRIN 81 MG CHEWABLE TABLET PO (09:46)
[2020-06-03] MEDS: POTASSIUM CHLORIDE 20 MEQ TABLET 40 MEQ PO (09:46)
[2020-06-03] MEDS: METOPROLOL TARTRATE 25 MG TABLET PO (09:46)
--- NOTE | 2020-06-03 14:45 | PM.IMPN ---
Progress Note: A&P Assessment and Plan (1) Atrial fibrillation with rapid ventricular response: Code(s): I48.91 - Unspecified atrial fibrillation Status: Acute Assessment and Plan: possibly from underlying pneumonia. Will start antibiotics for infection. Patient was initially started on a Cardizem drip, but Cardiology switched him to Metoprolol 75 mg Q8hrs. Tele shows Afib with RVR at 106-120's. Normal EF 60-65%, mild LVH, mild aortic valve stenosis, severe aortic valve calcification. Mild pulmonary hypertension. The patient has been on Coumadin however today is INR subtherapeutic. Cardiology like to place patient on Eliquis which will cost him around 40 dollars per month. Will start Eliquis 2.5 mg q.12. Continue monitoring. Appreciate Cardiology input. Will continue with Lovenox to we can bridge over to a therapeutic Coumadin. (2) SOB (shortness of breath): Code(s): R06.02 - Shortness of breath Status: Acute Assessment and Plan: Patient does report some shortness of breath, deep productive cough, and chest x-ray showed possible pneumonia in right upper lung field. Today is vitals did show, tachycardia, some tachypnea, and low-grade fever 99.7. Blood cultures pending Will start IV antibiotics for community-acquired pneumonia with azithromycin and IV ceftriaxone Sputum culture pending Cornet will be ordered DuoNeb treatments with ipratropium and Xopenex Continue monitoring. Continue monitoring respiratory status and vitals. (3) Unspecified kidney failure: Qualifiers: Renal failure chronicity: unspecified chronicity Qualified Code(s): N19 - Unspecified kidney failure Code(s): N19 - Unspecified kidney failure Status: Acute Assessment and Plan: Patient stated that he does have chronic kidney disease was noted in his chart he has stage III. Unsure of patient's baseline creatinine, but his Cr is increasing the last few days. Will give some light IV fluid hydration to improve his renal function and due to his underlying infection. Continue to monitoring fluid status. (4) Peripheral neuropathy: Qualifiers: Peripheral neuropathy type: polyneuropathy, unspecified Qualified Code(s): G62.9 - Polyneuropathy, unspecified Code(s): G62.9 - Polyneuropathy, unspecified Status: Acute Assessment and Plan: Continue with home medications. (5) Dizziness and giddiness: Code(s): R42 - Dizziness and giddiness Status: Acute Assessment and Plan: He reports the dizziness has been going on for a while but yesterday he decided to come in for further evaluation due to worsening symptoms as well as some confusion, generalized weakness, and he did trip and fall over the direct selling counselor. He denies any trauma other than some discomfort to his left hip area. Continue PT and OT therapy Not orthostatic today Continue monitoring. (6) Dyslipidemia, goal LDL below 100: Code(s): E78.5 - Hyperlipidemia, unspecified Status: Acute Assessment and Plan: Continue with atorvastatin Time Spent With Patient Time with patient: 25 - 35 minutes Subjective Date/time seen: 06/03/20 14:45 Interval history: Date of service 06/03/2020: He reports feeling better today, and feels like his rate to go home but no severe still making adjustments to his medications. He reports improvement to his shortness of breath since arrival and reports a decrease in his cough today, is has been less productive. Denies any weakness or fatigue, lightheadedness or dizziness. He denies any chest pain, fever, chills, palpitations, leg swelling, calf pain, nausea, vomiting,
--- NOTE | 2020-06-03 15:32 | PM.PNCARD ---
Progress Note: A&P Assessment and Plan (1) Atrial fibrillation with rapid ventricular response: Code(s): I48.91 - Unspecified atrial fibrillation Status: Acute Assessment and Plan: May plan to initiate amiodarone as antiarrhythmic If necessary but need to wash out sotalol for additional 24-48 hours. increase metoprolol to 75 mg Q 8 hour, observed tolerance/response. Respiratory status improving with IV antibiotics, bronchodilators. Off sotalol due to ineffectiveness, low-dose and inability to increase safely due to renal failure. Alternative antiarrhythmic such as amiodarone but would need additional washout to improve safety profile. Will attempt to optimize control with beta-idris therapy for now. Change to 50 mg Q p.o. q.8 hours. Patient has previously tolerate AFib reasonably well and has been paroxysmal historically. Subtherapeutic INR 1.2 presentation. Enoxaparin bridging, change to Eliquis 2.5 mg b.i.d. creatinine > 1.5, age > 80. Discontinue enoxaparin, begin Eliquis this evening. Magnesium low, replete as appropriate. If cardioversion deemed necessary he would require MITZI guidance as he presented subtherapeutic for an unknown period of time. (2) SOB (shortness of breath): Code(s): R06.02 - Shortness of breath Status: Acute Assessment and Plan: Patient does not appear to be in significant decompensated heart failure. Suspect related to underlying infiltrate possible pneumonia possibly AFib with RVR but he has tolerated this well in the past paroxysmally. He has neutrophilic shift and a CBC although no elevation in white blood cell count or fever. Will check BNP, TSH. 2D echo reviewed EF 60 65%, mild aortic stenosis severe left atrial enlargement. As a result, Cardioversion would not be likely to be effective. (3) Elevated troponin: Code(s): R77.8 - Other specified abnormalities of plasma proteins Status: Acute Assessment and Plan: Mild troponin elevation non [place] troponin elevation secondary to renal failure not ACS or acute plaque rupture. Will review 2D echocardiogram when available to assess LV function, wall motion, pulmonary pressures, valve pathology. Further recommendation to follow. (4) CAD in [place] artery: Code(s): I25.10 - Atherosclerotic heart disease of [place] coronary artery without angina pectoris Status: Acute Assessment and Plan: No clear anginal symptoms. Continue statin, aspirin. (5) Dizziness and giddiness: Code(s): R42 - Dizziness and giddiness Status: Acute Assessment and Plan: Clinically patient appears to be somewhat dry. May recommend gentle hydration depending when orthostatics. Patient is not hypotensive today. However, he reports labile blood pressures historically as an outpatient. Will reintroduce antianginal therapy slowly based on BP, orthostatics and patient's symptoms. CT head normal aging brain without acute or old stroke apparent. PT OT Check urinalysis (6) CKD (chronic kidney disease) stage 3, GFR 30-59 ml/min: Code(s): N18.3 - Chronic kidney disease, stage 3 (moderate) Status: Acute Assessment and Plan: Mild acute on chronic renal failure baseline creatinine previously around 2. Followed by Nephrology as an outpatient. Monitor renal function closely. Avoid nephrotoxic agents. Hold on resuming losartan hydrochlorothiazide defer the stabilized. (7) Pulmonary hypertension: Code(s): I27.20 - Pulmonary hypertension, unspecified Status: Acute Assessment and Plan: Mild by echo RVSP 42 mm Hg. (8) Subtherapeutic international normalized ratio (INR): Code(s): R79.1 - Abnormal coagulation profile Status: Acute Assessment and Plan: Subtherapeutic goal INR 2-3. Bridge with enoxaparin increased warfarin monitor for bleeding. (9) History of stroke: Code(s): Z86.73 - Personal history of transient ischemic attack (TIA
[2020-06-03] MEDS: METOPROLOL TARTRATE 25 MG TABLET 75 MG PO ×2 (15:36→20:58)
[2020-06-03] MEDS: APIXABAN 2.5 MG TABLET PO (20:58)
[2020-06-03] MEDS: MELATONIN 3 MG TABLET PO (20:58)
[2020-06-04] VITALS (23 sets, daily range): BP systolic 126–152; BP diastolic 80–104; PULSE 76–139; RESP 12–24; TEMP 36.4–37.8; O2SAT 92–100
[2020-06-04] MEDS: IPRATROPIUM BR 0.02% INH SOLN 0.5 MG/2.5 ML VIAL INHALATION ×3 (02:49→14:06)
[2020-06-04 05:17] LABS: Basophils Percent Auto 0.1 % (0.2-1.2); Hematocrit 34.1 % (42.0-52.0); Hemoglobin 11.4 g/dL (14.0-18.0); Immature Granulocyte Absolute 0.06 K/mm3 (0.00-0.031); Immature Granulocyte Percent A 0.7 % (0-0.5); Lymphocytes Absolute Auto 0.66 K/mm3 (0.9-3.2); Lymphocytes Percent Auto 7.4 % (18.3-44.2); Mean Corpuscular HGB Conc 33.4 g/dl (32-36); Mean Corpuscular Hemoglobin 29.3 pg (26-34); Mean Corpuscular Volume 87.7 fl (80-100); Mean Platelet Volume 12.4 fl (7.4-10.4); Monocytes Absolute Auto 0.9 K/mm3 (0.1-0.6); Neutrophils Absolute Auto 7.3 K/mm3 (1.3-6.7); Neutrophils Percent Auto 81.8 % (45.5-73.1); Platelet Count Result 157 k/mm3 (150-375); Red Blood Count 3.89 M/mm3 (4.6-6.20)
[2020-06-04 05:51] LABS: Anion Gap 7 mmol/L (8-16); Blood Urea Nitrogen 54 mg/dL (9-20); Calcium 8.2 mg/dL (8.4-10.2); Carbon Dioxide 27 mmol/L (22-30); Chloride 100 mmol/L (98-107); Estimated CRCL calculation 24 ml/min; Estimated Glomerular Filt Rate 29; Glucose 132 mg/dL (75-110); Potassium 3.5 mmol/L (3.4-5.0); Sodium 134 mmol/L (137-145)
[2020-06-04 05:56] LABS: CRP 14.8 mg/dL (<1.0)
[2020-06-04] MEDS: METOPROLOL TARTRATE 25 MG TABLET 75 MG PO ×3 (06:42→20:59)
[2020-06-04 08:36] LABS: Lactate Dehydrogenase 1554 U/L (313-618)
[2020-06-04] MEDS: ASPIRIN 81 MG CHEWABLE TABLET PO (09:55)
[2020-06-04] MEDS: APIXABAN 2.5 MG TABLET PO ×2 (09:58→19:47)
[2020-06-04] MEDS: LACTATED RINGERS 1,000 ML 85 ML IV CONT (11:20)
--- NOTE | 2020-06-04 15:32 | PM.IMPN ---
Progress Note: A&P Assessment and Plan (1) Atrial fibrillation with rapid ventricular response: Code(s): I48.91 - Unspecified atrial fibrillation Status: Acute Assessment and Plan: possibly from underlying pneumonia versus COVID. Patient was initially started on a Cardizem drip, but Cardiology switched him to Metoprolol 75 mg Q8hrs. Tele shows Afib with RVR at 110-100's. Normal EF 60-65%, mild LVH, mild aortic valve stenosis, severe aortic valve calcification. Mild pulmonary hypertension. Cardiology like to place patient on Eliquis which will cost him around 40 dollars per month. Will start Eliquis 2.5 mg q.12. Continue monitoring. Appreciate Cardiology input. Will continue with Lovenox to we can bridge over to a therapeutic Coumadin. (2) SOB (shortness of breath): Code(s): R06.02 - Shortness of breath Status: Acute Assessment and Plan: Patient does report some shortness of breath, deep productive cough, and chest x-ray showed possible pneumonia in right upper lung field. Today is vitals did show, tachycardia, some tachypnea, and low-grade fever 99.7. Blood cultures are negative today Sputum culture showed not enough sputum for testing Started IV antibiotics for community-acquired pneumonia with azithromycin and IV ceftriaxone Day #3 Continue Cornet DuoNeb treatments with ipratropium and Xopenex- will be switched to PRN inhalers Continue monitoring. Continue monitoring respiratory status and vitals. (3) Unspecified kidney failure: Qualifiers: Renal failure chronicity: unspecified chronicity Qualified Code(s): N19 - Unspecified kidney failure Code(s): N19 - Unspecified kidney failure Status: Acute Assessment and Plan: Patient stated that he does have chronic kidney disease was noted in his chart he has stage III. Unsure of patient's baseline creatinine, but his Cr is increasing the last few days. Creatinine this morning was 2.2 which is improvement from 2.7 with IV fluids. Continue to monitoring fluid status. (4) Peripheral neuropathy: Qualifiers: Peripheral neuropathy type: polyneuropathy, unspecified Qualified Code(s): G62.9 - Polyneuropathy, unspecified Code(s): G62.9 - Polyneuropathy, unspecified Status: Acute Assessment and Plan: Continue with home medications. (5) Dizziness and giddiness: Code(s): R42 - Dizziness and giddiness Status: Acute Assessment and Plan: He reports the dizziness has been going on for a while but yesterday he decided to come in for further evaluation due to worsening symptoms as well as some confusion, generalized weakness, and he did trip and fall over the nursing service director. He denies any trauma other than some discomfort to his left hip area. Continue PT and OT therapy Not orthostatic today Continue monitoring. (6) Dyslipidemia, goal LDL below 100: Code(s): E78.5 - Hyperlipidemia, unspecified Status: Acute Assessment and Plan: Continue with atorvastatin Time Spent With Patient Time with patient: 25 - 35 minutes Subjective Date/time seen: 06/04/20 15:32 Interval history: Date of service 06/04/2020: He reports feeling better today. He reports improvement to his shortness of breath since arrival and reports a slight productive cough with yellow/white sputum production. Denies any weakness or fatigue, lightheadedness or dizziness. He denies any chest pain, fever, chills, palpitations, leg swelling, calf pain, nausea, vomiting, abdominal pain or any other symptoms at this time. Denies any COVID exposure. Denies loss of taste or smell. Review of Systems Review of Sys
--- NOTE | 2020-06-04 17:01 | PM.PNCARD ---
Progress Note: A&P Assessment and Plan (1) Atrial fibrillation with rapid ventricular response: Code(s): I48.91 - Unspecified atrial fibrillation Status: Acute Assessment and Plan: May plan to initiate amiodarone as antiarrhythmic. await COVID results. Continue metoprolol to 75 mg Q 8 hour, observed tolerance/response. Respiratory status improving with IV antibiotics, bronchodilators. Off sotalol due to ineffectiveness, low-dose and inability to increase safely due to renal failure. Alternative antiarrhythmic such as amiodarone but would need additional washout to improve safety profile. Will attempt to optimize control with beta-idris therapy for now. Change to 50 mg Q p.o. q.8 hours. Patient has previously tolerate AFib reasonably well and has been paroxysmal historically. Subtherapeutic INR 1.2 presentation. Continue Eliquis. If cardioversion deemed necessary he would require MITZI guidance as he presented subtherapeutic for an unknown period of time. Not advisable to sedate patient given respiratory concerns at present. (2) SOB (shortness of breath): Code(s): R06.02 - Shortness of breath Status: Acute Assessment and Plan: Patient is not in significant decompensated heart failure. Suspect related to underlying infiltrate possible pneumonia possibly AFib with RVR but he has tolerated this well in the past paroxysmally. He has neutrophilic shift and a CBC although no elevation in white blood cell count or fever. Will check BNP, TSH. 2D echo reviewed EF 60 65%, mild aortic stenosis severe left atrial enlargement. As a result, Cardioversion would not be likely to be effective. (3) Elevated troponin: Code(s): R77.8 - Other specified abnormalities of plasma proteins Status: Acute Assessment and Plan: Mild troponin elevation non [place] troponin elevation secondary to renal failure not ACS or acute plaque rupture. Will review 2D echocardiogram when available to assess LV function, wall motion, pulmonary pressures, valve pathology. Further recommendation to follow. (4) CAD in [place] artery: Code(s): I25.10 - Atherosclerotic heart disease of [place] coronary artery without angina pectoris Status: Acute Assessment and Plan: No clear anginal symptoms. Continue statin, aspirin. Resume atorvastatin 80 mg at bedtime. Remains on aspirin but may discontinue to reduce bleeding risk. If COVID negative will discontinue. (5) Dizziness and giddiness: Code(s): R42 - Dizziness and giddiness Status: Acute Assessment and Plan: Improved. May recommend gentle hydration depending when orthostatics. Patient is not hypotensive today. However, he reports labile blood pressures historically as an outpatient. Will reintroduce antianginal therapy slowly based on BP, orthostatics and patient's symptoms. CT head normal aging brain without acute or old stroke apparent. PT OT Check urinalysis (6) CKD (chronic kidney disease) stage 3, GFR 30-59 ml/min: Code(s): N18.3 - Chronic kidney disease, stage 3 (moderate) Status: Acute Assessment and Plan: Mild acute on chronic renal failure baseline creatinine previously around 2. Followed by Nephrology as an outpatient. Monitor renal function closely. Avoid nephrotoxic agents. Hold on resuming losartan hydrochlorothiazide defer the stabilized. (7) Pulmonary hypertension: Code(s): I27.20 - Pulmonary hypertension, unspecified Status: Acute Assessment and Plan: Mild by echo RVSP 42 mm Hg. (8) Subtherapeutic international normalized ratio (INR): Code(s): R79.1 - Abnormal coagulation profile Status: Acute Assessment and Plan: Changed to Eliquis. (9) History of stroke: Code(s): Z86.73 - Personal history of transient ischemic attack (TIA), and cerebral infarction without residual deficits Status: Acute Assessment and Plan: Chronic
[2020-06-04 17:38] LABS: SARS-CoV-2 RNA PCR Negative
[2020-06-04] MEDS: MELATONIN 3 MG TABLET PO (19:47)
[2020-06-04 22:49] LABS: Pneumococcal Antigen Urine Not Detected (Not Detected)
[2020-06-05] VITALS (19 sets, daily range): BP systolic 116–163; BP diastolic 70–97; PULSE 87–128; RESP 18–24; TEMP 36.1–36.8; O2SAT 90–99
[2020-06-05] MEDS: LACTATED RINGERS 1,000 ML 55 ML IV CONT (02:45)
[2020-06-05 04:59] LABS: Basophils Percent Auto 0.1 % (0.2-1.2); Eosinophils Percent Auto 0.2 % (0-4.4); Hematocrit 33.2 % (42.0-52.0); Hemoglobin 11.2 g/dL (14.0-18.0); Immature Granulocyte Absolute 0.09 K/mm3 (0.00-0.031); Immature Granulocyte Percent A 0.9 % (0-0.5); Lymphocytes Absolute Auto 1.07 K/mm3 (0.9-3.2); Lymphocytes Percent Auto 10.7 % (18.3-44.2); Mean Corpuscular HGB Conc 33.7 g/dl (32-36); Monocytes Absolute Auto 0.9 K/mm3 (0.1-0.6); Monocytes Percent Auto 9.3 % (2.6-8.5); Neutrophils Absolute Auto 7.9 K/mm3 (1.3-6.7); Neutrophils Percent Auto 78.8 % (45.5-73.1); Platelet Count Result 166 k/mm3 (150-375); Red Blood Count 3.73 M/mm3 (4.6-6.20)
[2020-06-05 05:25] LABS: Anion Gap 6 mmol/L (8-16); Blood Urea Nitrogen 46 mg/dL (9-20); CRP 18.9 mg/dL (<1.0); Calcium 8.4 mg/dL (8.4-10.2); Carbon Dioxide 30 mmol/L (22-30); Chloride 100 mmol/L (98-107); Estimated CRCL calculation 21 ml/min; Estimated Glomerular Filt Rate 34; Glucose 129 mg/dL (75-110); Magnesium 2.1 mg/dL (1.6-2.3); Potassium 3.4 mmol/L (3.4-5.0); Sodium 136 mmol/L (137-145)
[2020-06-05] MEDS: METOPROLOL TARTRATE 25 MG TABLET 75 MG PO ×3 (05:54→21:17)
[2020-06-05] MEDS: ATORVASTATIN 40 MG TABLET 80 MG PO (10:17)
[2020-06-05] MEDS: ASPIRIN 81 MG CHEWABLE TABLET PO (10:17)
[2020-06-05] MEDS: APIXABAN 2.5 MG TABLET PO ×2 (10:17→21:18)
--- NOTE | 2020-06-05 14:40 | P.PNIM_ITS ---
Progress Note: A&P Assessment and Plan (1) Atrial fibrillation with rapid ventricular response: Code(s): I48.91 - Unspecified atrial fibrillation Status: Acute Assessment and Plan: Likely from underlying PNA * Patient was initially started on a Cardizem drip, but Cardiology switched him to Metoprolol 75 mg Q8hrs. * Tele shows Afib with RVR and last HR was 104 * Normal EF 60-65%, mild LVH, mild aortic valve stenosis, severe aortic valve calcification. Mild pulmonary hypertension. * Warfarin has been switched to Eliquis * trops mildly elevated and flat, like d/t afib rvr. No ACS suspected Continue monitoring. Appreciate Cardiology input. (2) CAP (community acquired pneumonia): Code(s): J18.9 - Pneumonia, unspecified organism Status: Acute Assessment and Plan: Patient does report some shortness of breath and deep productive cough * CXR 06/04/20 showed worsened airspace opacities in the right mid and upper lung zones, consistent with PNA * Covid negative, urine pneumococcal ag neg. * pt still having fevers, will adjust abx for more broad coverage * Will order flu swab to r/u influenza * Blood cultures have no growth to date. * Sputum culture showed not enough sputum for testing * Continue Cornet * Continue xopenex PRN * Pt is 90% on RA, O2 available if he drops under 90% * If pt continues to worsen, consider retesting for COVID in a few days since there are reports of false negative tests. Continue monitoring. Continue monitoring respiratory status and vitals. (3) Unspecified kidney failure: Qualifiers: Renal failure chronicity: unspecified chronicity Qualified Code(s): N19 - Unspecified kidney failure Code(s): N19 - Unspecified kidney failure Status: Acute Assessment and Plan: Patient stated that he does have chronic kidney disease was noted in his chart he has stage III. * Chargemaster Specialist states his baseline Cr is around 2.0 and he sees a talent development director outpt * Holding HCTZ and losartan at this time * Creatinine this morning was 1.9 which is improvement from 2.7 with IV fluids. * UA not suspicious for UTI * Will check CK since pts AST is also elevated Continue to monitoring fluid status. (4) Peripheral neuropathy: Qualifiers: Peripheral neuropathy type: polyneuropathy, unspecified Qualified Code(s): G62.9 - Polyneuropathy, unspecified Code(s): G62.9 - Polyneuropathy, unspecified Status: Acute Assessment and Plan: Continue with home medications. (5) Dizziness and giddiness: Code(s): R42 - Dizziness and giddiness Status: Acute Assessment and Plan: He reports the dizziness has been going on for a while but he decided to come in for further evaluation due to worsening symptoms as well as some confusion, generalized weakness, and he did trip and fall over the rubber block layer. He denies any trauma other than some discomfort to his left hip area. * Continue PT and OT therapy * improving Continue monitoring. (6) Dyslipidemia, goal LDL below 100: Code(s): E78.5 - Hyperlipidemia, unspecified Status: Acute Assessment and Plan: Continue with atorvastatin (7) Elevated AST (SGOT): Code(s): R74.01 - Elevation of levels of liver transaminase levels St
--- NOTE | 2020-06-05 14:40 | PM.IMPN ---
Progress Note: A&P Assessment and Plan (1) Atrial fibrillation with rapid ventricular response: Code(s): I48.91 - Unspecified atrial fibrillation Status: Acute Assessment and Plan: Likely from underlying PNA Patient was initially started on a Cardizem drip, but Cardiology switched him to Metoprolol 75 mg Q8hrs. Tele shows Afib with RVR and last HR was 104 Normal EF 60-65%, mild LVH, mild aortic valve stenosis, severe aortic valve calcification. Mild pulmonary hypertension. Warfarin has been switched to Eliquis trops mildly elevated and flat, like d/t afib rvr. No ACS suspected Continue monitoring. Appreciate Cardiology input. (2) CAP (community acquired pneumonia): Code(s): J18.9 - Pneumonia, unspecified organism Status: Acute Assessment and Plan: Patient does report some shortness of breath and deep productive cough CXR 06/04/20 showed worsened airspace opacities in the right mid and upper lung zones, consistent with PNA Covid negative, urine pneumococcal ag neg. pt still having fevers, will adjust abx for more broad coverage Will order flu swab to r/u influenza Blood cultures have no growth to date. Sputum culture showed not enough sputum for testing Continue Cornet Continue xopenex PRN Pt is 90% on RA, O2 available if he drops under 90% If pt continues to worsen, consider retesting for COVID in a few days since there are reports of false negative tests. Continue monitoring. Continue monitoring respiratory status and vitals. (3) Unspecified kidney failure: Qualifiers: Renal failure chronicity: unspecified chronicity Qualified Code(s): N19 - Unspecified kidney failure Code(s): N19 - Unspecified kidney failure Status: Acute Assessment and Plan: Patient stated that he does have chronic kidney disease was noted in his chart he has stage III. Tool And Die Supervisor states his baseline Cr is around 2.0 and he sees a retail financial analyst outpt Holding HCTZ and losartan at this time Creatinine this morning was 1.9 which is improvement from 2.7 with IV fluids. UA not suspicious for UTI Will check CK since pts AST is also elevated Continue to monitoring fluid status. (4) Peripheral neuropathy: Qualifiers: Peripheral neuropathy type: polyneuropathy, unspecified Qualified Code(s): G62.9 - Polyneuropathy, unspecified Code(s): G62.9 - Polyneuropathy, unspecified Status: Acute Assessment and Plan: Continue with home medications. (5) Dizziness and giddiness: Code(s): R42 - Dizziness and giddiness Status: Acute Assessment and Plan: He reports the dizziness has been going on for a while but he decided to come in for further evaluation due to worsening symptoms as well as some confusion, generalized weakness, and he did trip and fall over the hat blocking operator. He denies any trauma other than some discomfort to his left hip area. Continue PT and OT therapy improving Continue monitoring. (6) Dyslipidemia, goal LDL below 100: Code(s): E78.5 - Hyperlipidemia, unspecified Status: Acute Assessment and Plan: Continue with atorvastatin (7) Elevated AST (SGOT): Code(s): R74.01 - Elevation of levels of liver transaminase levels Status: Acute Assessment and Plan: AST on admission 140 and ALT and alk phos normal recheck LFTs, hepatitis panel, and CK Could be due to current infection Consider further w/u if it is still elevated on re-check Time Spent With Patient Time with patient: 25 - 35 minutes Subjective Date/time seen: 06/05/20 14:40 Interval his
--- NOTE | 2020-06-05 15:08 | PM.PNCARD ---
Progress Note: A&P Assessment and Plan (1) Atrial fibrillation with rapid ventricular response: Code(s): I48.91 - Unspecified atrial fibrillation Status: Acute Assessment and Plan: Discussed at length to initiate amiodarone as antiarrhythmic. However, still CVA risk if chemical cardioversion with Amiodarone although potentially Continue metoprolol to 75 mg Q 8 hour, observed tolerance/response. Respiratory status improving with IV antibiotics, bronchodilators. Plan MITZI/CV on Monday if resp status permits. Off sotalol due to ineffectiveness, low-dose and inability to increase safely due to renal failure. Alternative antiarrhythmic such as amiodarone but would need additional washout to improve safety profile. Will attempt to optimize control with beta-idris therapy for now. Change to 50 mg Q p.o. q.8 hours. Patient has previously tolerate AFib reasonably well and has been paroxysmal historically. Subtherapeutic INR 1.2 presentation started onEliquis. If cardioversion deemed necessary he would require MITZI guidance as he presented subtherapeutic for an unknown period of time. Not advisable to sedate patient given respiratory concerns at present. (2) SOB (shortness of breath): Code(s): R06.02 - Shortness of breath Status: Acute Assessment and Plan: Patient is not in decompensated heart failure. SOB due to pneumonia but possibly AFib with RVR. However, he has tolerated A.Fib well in the past. 2D echo reviewed EF 60 65%, mild aortic stenosis severe left atrial enlargement. As a result, Cardioversion would not be likely to be effective. (3) CAP (community acquired pneumonia): Code(s): J18.9 - Pneumonia, unspecified organism Status: Acute Assessment and Plan: Per primary service. On IV ABx still wheezing and SOB, CXR 06/04/20 worse compared to admission, COVID neg. bronchodilators. (4) Elevated troponin: Code(s): R77.8 - Other specified abnormalities of plasma proteins Status: Acute Assessment and Plan: Mild troponin elevation non NE troponin elevation secondary to renal failure not ACS or acute plaque rupture. Will review 2D echocardiogram when available to assess LV function, wall motion, pulmonary pressures, valve pathology. Further recommendation to follow. (5) CAD in [place] artery: Code(s): I25.10 - Atherosclerotic heart disease of [place] coronary artery without angina pectoris Status: Acute Assessment and Plan: No clear anginal symptoms. Continue statin, aspirin. Resume atorvastatin 80 mg at bedtime. Remains on aspirin but may discontinue to reduce bleeding risk. If COVID negative will discontinue. (6) CKD (chronic kidney disease) stage 3, GFR 30-59 ml/min: Code(s): N18.3 - Chronic kidney disease, stage 3 (moderate) Status: Acute Assessment and Plan: Mild acute on chronic renal failure baseline creatinine previously around 2 now at baseline 1.9. Followed by Nephrology as an outpatient. Monitor renal function closely. Avoid nephrotoxic agents. (7) Pulmonary hypertension: Code(s): I27.20 - Pulmonary hypertension, unspecified Status: Acute Assessment and Plan: Mild by echo RVSP 42 mm Hg. (8) Subtherapeutic international normalized ratio (INR): Code(s): R79.1 - Abnormal coagulation profile Status: Acute Assessment and Plan: Changed to Eliquis. continue H/H stable. (9) Suspected COVID-19 virus infection: Code(s): Z20.822 - Contact with and (suspected) exposure to COVID-19 Status: Acute Assessment and Plan: NEGATIVE, off isolation. CXR worse compared to admission. (10) Dizziness and giddiness: Code(s): R42 - Dizziness and giddiness Status: Acute Assessment and Plan: Improved. May recommend gentle hydration depending when orthostatics. Patient is not hypotensive today. However, he reports labile blood pressures historical
[2020-06-05 16:06] LABS: Alanine Aminotransferase 161 U/L (4-50); Albumin Level 3.9 g/dL (3.5-5.1); Alkaline Phosphatase 87 U/L (38-126); Aspartate Amino Transferase 204 U/L (17-59); Bilirubin,Total 1.3 mg/dL (0.2-1.3); Creatine Kinase 584 U/L (55-170)
[2020-06-05 19:07] LABS: Hepatitis B Surface Antigen Negative (Negative)
[2020-06-05 19:12] LABS: HAV RESULT Negative (Negative); Hepatitis B Core IgM Result Negative (Negative)
[2020-06-05 19:24] LABS: Hepatitis C Virus Antibody Negative (Negative)
[2020-06-05] MEDS: MELATONIN 3 MG TABLET PO (21:17)
[2020-06-06] VITALS (15 sets, daily range): BP systolic 125–154; BP diastolic 83–96; PULSE 61–112; RESP 18–22; TEMP 36–36.7; O2SAT 95–99
[2020-06-06] MEDS: METOPROLOL TARTRATE 25 MG TABLET 75 MG PO (05:22)
[2020-06-06 05:52] LABS: Basophils Percent Auto 0.5 % (0.2-1.2); Eosinophils Absolute Auto 0.3 K/mm3 (0-0.3); Eosinophils Percent Auto 4.1 % (0-4.4); Hematocrit 33.5 % (42.0-52.0); Hemoglobin 11.2 g/dL (14.0-18.0); Immature Granulocyte Absolute 0.19 K/mm3 (0.00-0.031); Immature Granulocyte Percent A 2.5 % (0-0.5); Lymphocytes Absolute Auto 0.98 K/mm3 (0.9-3.2); Mean Corpuscular HGB Conc 33.4 g/dl (32-36); Mean Corpuscular Hemoglobin 30.3 pg (26-34); Mean Corpuscular Volume 90.5 fl (80-100); Mean Platelet Volume 12.1 fl (7.4-10.4); Monocytes Absolute Auto 0.7 K/mm3 (0.1-0.6); Monocytes Percent Auto 8.9 % (2.6-8.5); Neutrophils Absolute Auto 5.3 K/mm3 (1.3-6.7); Platelet Count Result 207 k/mm3 (150-375); White Blood Count 7.5 K/mm3 (4.5-10.0)
[2020-06-06] MEDS: APIXABAN 2.5 MG TABLET PO ×2 (09:23→21:13)
[2020-06-06] MEDS: ASPIRIN 81 MG CHEWABLE TABLET PO (09:23)
--- NOTE | 2020-06-06 11:00 | P.PNIM_ITS ---
Progress Note: A&P Assessment and Plan (1) Atrial fibrillation with rapid ventricular response: Code(s): I48.91 - Unspecified atrial fibrillation Status: Acute Assessment and Plan: Likely from underlying PNA * Patient was initially started on a Cardizem drip, but Cardiology switched him to Metoprolol 75 mg Q8hrs. * Tele shows Afib with RVR and last HR was 100 * Normal EF 60-65%, mild LVH, mild aortic valve stenosis, severe aortic valve calcification. Mild pulmonary hypertension. * Warfarin has been switched to Eliquis * trops mildly elevated and flat, like d/t afib rvr. No ACS suspected Continue monitoring. Appreciate Cardiology input. (2) CAP (community acquired pneumonia): Code(s): J18.9 - Pneumonia, unspecified organism Status: Acute Assessment and Plan: Patient does report some shortness of breath and deep productive cough * CXR 06/04/20 showed worsened airspace opacities in the right mid and upper lung zones, consistent with PNA * Covid negative, urine pneumococcal ag neg. * Patient is doing well on the cefepime * Flu swab ordered but not complete yet, I have notified the RN * Blood cultures have no growth to date. * Sputum culture showed not enough sputum for testing * Continue Cornet * Continue xopenex PRN * Pt is 98% on RA, O2 available if he drops under 90% Continue monitoring. Continue monitoring respiratory status and vitals. (3) Unspecified kidney failure: Qualifiers: Renal failure chronicity: unspecified chronicity Qualified Code(s): N19 - Unspecified kidney failure Code(s): N19 - Unspecified kidney failure Status: Acute Assessment and Plan: Patient stated that he does have chronic kidney disease was noted in his chart he has stage III. * Machine Learning Intern states his baseline Cr is around 2.[address] Antonio outpt * Holding HCTZ and losartan at this time * Creatinine has not been reported yet today because of a problem with the lab analyzer * UA not suspicious for UTI * CK mildly elevated, will recheck tomorrow. Statin stopped. He has been having some mild achiness Continue to monitoring fluid status. (4) Peripheral neuropathy: Qualifiers: Peripheral neuropathy type: polyneuropathy, unspecified Qualified Code(s): G62.9 - Polyneuropathy, unspecified Code(s): G62.9 - Polyneuropathy, unspecified Status: Acute Assessment and Plan: Continue with home medications. (5) Dizziness and giddiness: Code(s): R42 - Dizziness and giddiness Status: Acute Assessment and Plan: He reports the dizziness has been going on for a while but he decided to come in for further evaluation due to worsening symptoms as well as some confusion, generalized weakness, and he did trip and fall over the mortar mixer operator. He denies any trauma other than some discomfort to his left hip area. * Continue PT and OT therapy * improving Continue monitoring. (6) Dyslipidemia, goal LDL below 100: Code(s): E78.5 - Hyperlipidemia, unspecified Status: Acute Assessment and Plan: Holding atorvastatin at this time (7) Elevated AST (SGOT): Code(s): R74.01 - Elevation of levels of liver transaminase levels Status: Acute Assessment and Plan: AST o
--- NOTE | 2020-06-06 11:00 | PM.IMPN ---
Progress Note: A&P Assessment and Plan (1) Atrial fibrillation with rapid ventricular response: Code(s): I48.91 - Unspecified atrial fibrillation Status: Acute Assessment and Plan: Likely from underlying PNA Patient was initially started on a Cardizem drip, but Cardiology switched him to Metoprolol 75 mg Q8hrs. Tele shows Afib with RVR and last HR was 100 Normal EF 60-65%, mild LVH, mild aortic valve stenosis, severe aortic valve calcification. Mild pulmonary hypertension. Warfarin has been switched to Eliquis trops mildly elevated and flat, like d/t afib rvr. No ACS suspected Continue monitoring. Appreciate Cardiology input. (2) CAP (community acquired pneumonia): Code(s): J18.9 - Pneumonia, unspecified organism Status: Acute Assessment and Plan: Patient does report some shortness of breath and deep productive cough CXR 06/04/20 showed worsened airspace opacities in the right mid and upper lung zones, consistent with PNA Covid negative, urine pneumococcal ag neg. Patient is doing well on the cefepime Flu swab ordered but not complete yet, I have notified the RN Blood cultures have no growth to date. Sputum culture showed not enough sputum for testing Continue Cornet Continue xopenex PRN Pt is 98% on RA, O2 available if he drops under 90% Continue monitoring. Continue monitoring respiratory status and vitals. (3) Unspecified kidney failure: Qualifiers: Renal failure chronicity: unspecified chronicity Qualified Code(s): N19 - Unspecified kidney failure Code(s): N19 - Unspecified kidney failure Status: Acute Assessment and Plan: Patient stated that he does have chronic kidney disease was noted in his chart he has stage III. Segment Producer states his baseline Cr is around 2.[address] Antonio outpt Holding HCTZ and losartan at this time Creatinine has not been reported yet today because of a problem with the lab analyzer UA not suspicious for UTI CK mildly elevated, will recheck tomorrow. Statin stopped. He has been having some mild achiness Continue to monitoring fluid status. (4) Peripheral neuropathy: Qualifiers: Peripheral neuropathy type: polyneuropathy, unspecified Qualified Code(s): G62.9 - Polyneuropathy, unspecified Code(s): G62.9 - Polyneuropathy, unspecified Status: Acute Assessment and Plan: Continue with home medications. (5) Dizziness and giddiness: Code(s): R42 - Dizziness and giddiness Status: Acute Assessment and Plan: He reports the dizziness has been going on for a while but he decided to come in for further evaluation due to worsening symptoms as well as some confusion, generalized weakness, and he did trip and fall over the yarder puncher. He denies any trauma other than some discomfort to his left hip area. Continue PT and OT therapy improving Continue monitoring. (6) Dyslipidemia, goal LDL below 100: Code(s): E78.5 - Hyperlipidemia, unspecified Status: Acute Assessment and Plan: Holding atorvastatin at this time (7) Elevated AST (SGOT): Code(s): R74.01 - Elevation of levels of liver transaminase levels Status: Acute Assessment and Plan: AST on admission 140 and ALT and alk phos normal AST and ALT both elevated on redraw Hepatitis panel negative Could be due to current infection Will order ultrasound of the right upper quadrant Subjective Date/time seen: 06/06/20 11:00 Interval history: Pt is an 84-year-old male here for pneumonia and AFib RVR. Patient was seen today and states
--- NOTE | 2020-06-06 12:21 | PM.PNCARD ---
Progress Note: A&P Additional Plan AF with RVR in setting of CAP, CKD, normal EF but severly dilated LA, HTN, CAD, plan change metoprolol to 150 mg BID, cotn oral anticoagulation, Subjective Date/time seen: 06/06/20 12:21 Interval history: no acute events Tele: AF with RVR HR 100s Review of Systems Review of Systems: All systems reviewed & are unremarkable except as noted in HPI and below Exam Const: General: comfortable and no acute distress Other: Able to lie flat HENMT: General nose exam: Normal nares present and no epistaxis Mouth: Yes moist mucous membranes Eyes: Sclera: sclerae normal Pupils: Equal, round and reactive pupils present Neck: Neck: supple and no JVD Carotids: no bruits Resp: Auscultation: clear to auscultation bilaterally and lung sounds not diminished Other: No chest wall tenderness Cardio: Rate: abnormal rate Rhythm: abnormal rhythm Heart sounds: no gallops, no murmurs and no rubs GI: GI Palp: Yes Soft to palpation and No Tenderness to palpation present (GI) Auscultation: normal bowel sounds Skin: General skin exam: normal color, rashes and/or lesions noted and no erythema Other: Warm Neuro: Cranial nerves: Yes Equal, round and reactive pupils present Speech: normal speech Other: No obvious focal deficit or facial asymmetry Extrem: General: no edema Other: Normal capillary refills Intact distal pulses. Objective Data Vital Signs Vital Signs: Vital Signs - 24 hr 06/05/20 14:00 06/05/20 14:52 06/05/20 16:00 Temperature 36.3 C L Pulse Rate 108 H 126 H 97 Respiratory Rate 18 Blood Pressure 151/96 H Pulse Oximetry 94 06/05/20 17:30 06/05/20 18:00 06/05/20 19:57 Temperature 36.1 C L Pulse Rate 102 H 107 H Respiratory Rate 18 Blood Pressure 163/97 H 129/96 H 134/81 Pulse Oximetry 99 06/05/20 20:00 06/05/20 21:17 06/05/20 21:51 Temperature Pulse Rate 118 H 103 H Respiratory Rate Blood Pressure 145/90 H 116/75 Pulse Oximetry 99 06/05/20 22:00 06/06/20 00:00 06/06/20 02:00 Temperature 36.0 C L Pulse Rate 108 H 103 H 107 H Respiratory Rate 18 Blood Pressure 129/89 Pulse Oximetry 96 06/06/20 04:00 06/06/20 05:22 06/06/20 06:00 Temperature 36.2 C L Pulse Rate 90 104 H 100 Respiratory Rate 18 Blood Pressure 148/83 H Pulse Oximetry 97 06/06/20 08:00 06/06/20 10:00 06/06/20 12:00 Temperature 36.2 C L 36.2 C L Pulse Rate 99 90 112 H Respiratory Rate 20 22 H Blood Pressure 139/86 140/96 H Pulse Oximetry 98 98 Intake/Output Intake/Output: Intake & Output 06/03/20 06/04/20 06/05/20 06/06/20 23:59 23:59 23:59 23:59 Intake Total 2750 3080 1787 760 Output Total 1375 850 600 Balance 2750 1705 937 160 Meds/Results Medications: Active Medications Generic Name Dose Route Start Last Admin Trade Name Freq PRN Reason Stop Dose Admin Apixaban 2.5 mg 06/03/20 21:00 06/06/20 09:23 Apixaban 2.5 Mg Tablet PO 2.5 mg Q12HR SARAH Administration Aspirin 81 mg 06/02/20 08:00 06/06/20 09:23 Aspirin 81 Mg Chewable Tablet PO 81 mg DAILY@0800 SARAH Administration Atorvastatin Calcium 80 mg 06/05/20 09:00 06/05/20 10:17 Atorvastatin 40 Mg Tablet PO 80 mg DAILY SARAH Administration Cefepime HCl 2 gm in 50 mls @ 100 mls/hr 06/05/20 16:00 06/06/20 09:22 Maxipime 2 Gm/D5w 50 Ml IVPB 100 mls/hr DAILY SARAH Administration Levalbuterol HCl 2 puff 06/04/20 16:48 Levalbuterol Hfa (*Sp) 15 Gm Inhaler INHALATION Q6HRT PRN Shortness Of Breath Melatonin 3 mg 06/02/20 21:00 06/05/20 21:17 Melatonin 3 Mg Tablet PO 3 mg HS SARAH Administration Metoprolol Tartrate 75 mg 06/03/20 14:00 06/06/20 05:22 Metoprolol Tartrate 25 Mg Tablet PO 75 mg Q8HR SARAH Administration Radiology Results: ITS Impressions Head CT 06/01/20 10:23 IMPRESSION: 1. Normal aging brain. Pulmonary Perfusion Imaging 06/01/20 14:28 IMPRESSION: 1. Nondiagnostic
[2020-06-06 12:36] LABS: Alanine Aminotransferase 134 U/L (4-50); Albumin Level 3.1 g/dL (3.5-5.1); Alkaline Phosphatase 75 U/L (38-126); Anion Gap 7 mmol/L (8-16); Aspartate Amino Transferase 151 U/L (17-59); Bilirubin,Total 0.9 mg/dL (0.2-1.3); Blood Urea Nitrogen 45 mg/dL (9-20); Calcium 8.2 mg/dL (8.4-10.2); Carbon Dioxide 28 mmol/L (22-30); Chloride 105 mmol/L (98-107); Estimated CRCL calculation 32 ml/min; Estimated Glomerular Filt Rate 42; Glucose 102 mg/dL (75-110); Magnesium 2.1 mg/dL (1.6-2.3); Sodium 140 mmol/L (137-145)
[2020-06-06] MEDS: POTASSIUM CHLORIDE 20 MEQ TABLET 40 MEQ PO (15:24)
--- NOTE | 2020-06-06 15:51 | PC.NURSE ---
This patient, Bunny Shi Jr., was transferred to [facility] on 06/06/20 at 1550. Personal belongings sent with patient. Report given to Ruperto ALDRIDGE. Appropriate documentation sent with patient.
--- NOTE | 2020-06-06 16:12 | PC.NURSE ---
@1550 this patient arrived in room 328. Patient A&Ox3, on room air, and call light placed within reach.
[2020-06-06 17:02] LABS: Legionella pneumophila Ag Ur Detected (Not Detected)
[2020-06-06] MEDS: METOPROLOL TARTRATE 50 MG TAB 150 MG PO (21:13)
[2020-06-06] MEDS: MELATONIN 3 MG TABLET PO (21:13)
[2020-06-07] VITALS (14 sets, daily range): BP systolic 145–160; BP diastolic 81–110; PULSE 61–102; RESP 18–20; TEMP 36.4–37.1; O2SAT 95–98
[2020-06-07 06:43] LABS: Basophils Percent Auto 0.5 % (0.2-1.2); Eosinophils Absolute Auto 0.4 K/mm3 (0-0.3); Eosinophils Percent Auto 4.3 % (0-4.4); Hematocrit 35.5 % (42.0-52.0); Hemoglobin 11.8 g/dL (14.0-18.0); Immature Granulocyte Absolute 0.31 K/mm3 (0.00-0.031); Immature Granulocyte Percent A 3.6 % (0-0.5); Lymphocytes Absolute Auto 1.01 K/mm3 (0.9-3.2); Lymphocytes Percent Auto 11.8 % (18.3-44.2); Mean Corpuscular HGB Conc 33.2 g/dl (32-36); Mean Corpuscular Hemoglobin 29.4 pg (26-34); Mean Corpuscular Volume 88.5 fl (80-100); Mean Platelet Volume 11.2 fl (7.4-10.4); Monocytes Absolute Auto 0.7 K/mm3 (0.1-0.6); Monocytes Percent Auto 8.6 % (2.6-8.5); Neutrophils Absolute Auto 6.1 K/mm3 (1.3-6.7); Neutrophils Percent Auto 71.2 % (45.5-73.1); Platelet Count Result 279 k/mm3 (150-375); Red Blood Count 4.01 M/mm3 (4.6-6.20); Red Cell Distribution Width 14.8 % (11.5-14.5); White Blood Count 8.6 K/mm3 (4.5-10.0)
[2020-06-07 07:50] LABS: Alanine Aminotransferase 159 U/L (4-50); Albumin Level 3.3 g/dL (3.5-5.1); Alkaline Phosphatase 80 U/L (38-126); Anion Gap 6 mmol/L (8-16); Aspartate Amino Transferase 141 U/L (17-59); Bilirubin,Total 0.9 mg/dL (0.2-1.3); Blood Urea Nitrogen 39 mg/dL (9-20); CRP 8.9 mg/dL (<1.0); Calcium 8.7 mg/dL (8.4-10.2); Carbon Dioxide 28 mmol/L (22-30); Chloride 106 mmol/L (98-107); Creatine Kinase 161 U/L (55-170); Estimated CRCL calculation 34 ml/min; Estimated Glomerular Filt Rate 45; Glucose 127 mg/dL (75-110); Potassium 3.6 mmol/L (3.4-5.0); Sodium 140 mmol/L (137-145)
[2020-06-07] MEDS: ASPIRIN 81 MG CHEWABLE TABLET PO (07:56)
[2020-06-07] MEDS: METOPROLOL TARTRATE 50 MG TAB 150 MG PO ×2 (08:00→20:11)
[2020-06-07] MEDS: APIXABAN 2.5 MG TABLET PO ×2 (08:00→20:11)
--- NOTE | 2020-06-07 13:24 | PCOTNOTE ---
The patient treatment was not able to be completed on 06/07 due to required frequency being met. Will plan to continue treatment per plan of care tomorrow.
--- NOTE | 2020-06-07 13:32 | PCPTNOTE ---
Attempted to see patient for Physical Therapy this afternoon, however pt. refused. Patient stated that he was tired and wanted to take a nap. Patient stated that he will get enough activity tomorrow and he wanted to just get home. RN notified.
--- NOTE | 2020-06-07 13:39 | PM.PNCARD ---
Progress Note: A&P Additional Plan AF with RVR in setting of CAP, CKD, normal EF but severly dilated LA, HTN, CAD, plan cont metoprolol to 150 mg BID, cotn oral anticoagulation, Subjective Date/time seen: 06/07/20 13:39 Interval history: no acute events Not on tele Review of Systems Review of Systems: All systems reviewed & are unremarkable except as noted in HPI and below Exam Const: General: comfortable and no acute distress Other: Able to lie flat HENMT: General nose exam: Normal nares present and no epistaxis Mouth: Yes moist mucous membranes Eyes: Sclera: sclerae normal Pupils: Equal, round and reactive pupils present Neck: Neck: supple and no JVD Carotids: no bruits Resp: Auscultation: clear to auscultation bilaterally and lung sounds not diminished Other: No chest wall tenderness Cardio: Rate: abnormal rate Rhythm: abnormal rhythm Heart sounds: no gallops, no murmurs and no rubs GI: GI Palp: Yes Soft to palpation and No Tenderness to palpation present (GI) Auscultation: normal bowel sounds Skin: General skin exam: normal color, rashes and/or lesions noted and no erythema Other: Warm Neuro: Cranial nerves: Yes Equal, round and reactive pupils present Speech: normal speech Other: No obvious focal deficit or facial asymmetry Extrem: General: no edema Other: Normal capillary refills Intact distal pulses. Objective Data Vital Signs Vital Signs: Vital Signs - 24 hr 06/06/20 14:00 06/06/20 16:00 06/06/20 16:14 Temperature 36.4 C L Pulse Rate 106 H 111 H 90 Respiratory Rate 18 Blood Pressure 125/89 Pulse Oximetry 99 06/06/20 16:15 06/06/20 20:00 06/06/20 21:13 Temperature Pulse Rate 103 H 90 Respiratory Rate Blood Pressure 149/94 H Pulse Oximetry 95 06/06/20 22:00 06/07/20 00:00 06/07/20 04:00 Temperature 36.7 C Pulse Rate 61 61 99 Respiratory Rate 18 Blood Pressure 154/90 H Pulse Oximetry 95 06/07/20 06:00 06/07/20 06:01 06/07/20 06:03 Temperature 36.5 C Pulse Rate 95 Respiratory Rate 18 Blood Pressure 159/95 H 151/110 H 145/87 H Pulse Oximetry 98 06/07/20 08:00 Temperature Pulse Rate 99 Respiratory Rate Blood Pressure Pulse Oximetry Intake/Output Intake/Output: Intake & Output 06/04/20 06/05/20 06/06/20 06/07/20 23:59 23:59 23:59 23:59 Intake Total 3080 1787 1050 710 Output Total 1375 850 600 900 Balance 1705 937 450 -190 Meds/Results Medications: Active Medications Generic Name Dose Route Start Last Admin Trade Name Freq PRN Reason Stop Dose Admin Apixaban 2.5 mg 06/03/20 21:00 06/07/20 08:00 Apixaban 2.5 Mg Tablet PO 2.5 mg Q12HR SARAH Administration Aspirin 81 mg 06/02/20 08:00 06/07/20 07:56 Aspirin 81 Mg Chewable Tablet PO 81 mg DAILY@0800 SARAH Administration Atorvastatin Calcium 80 mg 06/05/20 09:00 06/05/20 10:17 Atorvastatin 40 Mg Tablet PO 80 mg DAILY SARAH Administration Cefepime HCl 2 gm in 50 mls @ 100 mls/hr 06/05/20 16:00 06/07/20 08:00 Maxipime 2 Gm/D5w 50 Ml IVPB 100 mls/hr DAILY SARAH Administration Levalbuterol HCl 2 puff 06/04/20 16:48 Levalbuterol Hfa (*Sp) 15 Gm Inhaler INHALATION Q6HRT PRN Shortness Of Breath Melatonin 3 mg 06/02/20 21:00 06/06/20 21:13 Melatonin 3 Mg Tablet PO 3 mg HS SARAH Administration Metoprolol Tartrate 150 mg 06/06/20 21:00 06/07/20 08:00 Metoprolol Tartrate 50 Mg Tab PO 150 mg Q12HR SARAH Administration Radiology Results: ITS Impressions Head CT 06/01/20 10:23 IMPRESSION: 1. Normal aging brain. Pulmonary Perfusion Imaging 06/01/20 14:28 IMPRESSION: 1. Nondiagnostic (intermediate probability for pulmonary embolism). Venous Doppler Study 06/01/20 14:34 IMPRESSION: 1. No deep venous thrombosis. Chest X-Ray 06/04/20 11:08 IMPRESSION: 1. Worsened airspace opacities in right mid and upper lung zones, consistent with pneumonia. Abdomen
--- NOTE | 2020-06-07 14:13 | P.PNIM_ITS ---
Progress Note: A&P Assessment and Plan (1) Atrial fibrillation with rapid ventricular response: Code(s): I48.91 - Unspecified atrial fibrillation Status: Acute Assessment and Plan: Likely from underlying PNA * Patient was initially started on a Cardizem drip, but Cardiology switched him to Metoprolol 150 Q12 * Tele shows Afib with RVR and last HR was 100 * Normal EF 60-65%, mild LVH, mild aortic valve stenosis, severe aortic valve calcification. Mild pulmonary hypertension. * Warfarin has been switched to Eliquis * trops mildly elevated and flat, like d/t afib rvr. No ACS suspected Continue monitoring. Appreciate Cardiology input. (2) CAP (community acquired pneumonia): Code(s): J18.9 - Pneumonia, unspecified organism Status: Acute Assessment and Plan: Patient does report some shortness of breath and deep productive cough * Pt is positive for legionella which will explain his elevated CK and LFTs. ID nurse notified. * CXR 06/04/20 showed worsened airspace opacities in the right mid and upper lung zones, consistent with PNA * Covid negative, urine pneumococcal ag neg. * Patient is doing well on the cefepime * Blood cultures have no growth to date. * Sputum culture showed not enough sputum for testing * Continue Cornet * Continue xopenex PRN * Pt is 98% on RA, O2 available if he drops under 90% Continue monitoring. Continue monitoring respiratory status and vitals. (3) Unspecified kidney failure: Qualifiers: Renal failure chronicity: unspecified chronicity Qualified Code(s): N19 - Unspecified kidney failure Code(s): N19 - Unspecified kidney failure Status: Acute Assessment and Plan: Patient stated that he does have chronic kidney disease was noted in his chart he has stage III. * Net Developer Consultant states his baseline Cr is around 2.[address] Antonio outpt * Holding HCTZ and losartan at this time * Cr 1.5 today * UA not suspicious for UTI * CK back to normal Continue to monitoring fluid status. (4) Peripheral neuropathy: Qualifiers: Peripheral neuropathy type: polyneuropathy, unspecified Qualified Code(s): G62.9 - Polyneuropathy, unspecified Code(s): G62.9 - Polyneuropathy, unspecified Status: Acute Assessment and Plan: Continue with home medications. 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 He denies any trauma other than some discomfort to his left hip area. * Continue PT and OT therapy * improving Continue monitoring. (6) Dyslipidemia, goal LDL below 100: Code(s): E78.5 - Hyperlipidemia, unspecified Status: Acute Assessment and Plan: Holding atorvastatin at this time (7) Elevated AST (SGOT): Code(s): R74.01 - Elevation of levels of liver transaminase levels Status: Acute Assessment and Plan: AST on admission 140 and ALT and alk phos normal * AST and ALT both elevated on redraw * Hepatitis panel negative, liver u/s ok
--- NOTE | 2020-06-07 14:13 | PM.IMPN ---
Progress Note: A&P Assessment and Plan (1) Atrial fibrillation with rapid ventricular response: Code(s): I48.91 - Unspecified atrial fibrillation Status: Acute Assessment and Plan: Likely from underlying PNA Patient was initially started on a Cardizem drip, but Cardiology switched him to Metoprolol 150 Q12 Tele shows Afib with RVR and last HR was 100 Normal EF 60-65%, mild LVH, mild aortic valve stenosis, severe aortic valve calcification. Mild pulmonary hypertension. Warfarin has been switched to Eliquis trops mildly elevated and flat, like d/t afib rvr. No ACS suspected Continue monitoring. Appreciate Cardiology input. (2) CAP (community acquired pneumonia): Code(s): J18.9 - Pneumonia, unspecified organism Status: Acute Assessment and Plan: Patient does report some shortness of breath and deep productive cough Pt is positive for legionella which will explain his elevated CK and LFTs. ID nurse notified. CXR 06/04/20 showed worsened airspace opacities in the right mid and upper lung zones, consistent with PNA Covid negative, urine pneumococcal ag neg. Patient is doing well on the cefepime Blood cultures have no growth to date. Sputum culture showed not enough sputum for testing Continue Cornet Continue xopenex PRN Pt is 98% on RA, O2 available if he drops under 90% Continue monitoring. Continue monitoring respiratory status and vitals. (3) Unspecified kidney failure: Qualifiers: Renal failure chronicity: unspecified chronicity Qualified Code(s): N19 - Unspecified kidney failure Code(s): N19 - Unspecified kidney failure Status: Acute Assessment and Plan: Patient stated that he does have chronic kidney disease was noted in his chart he has stage III. Knit Goods Press Hand states his baseline Cr is around 2.[address] Antonio outpt Holding HCTZ and losartan at this time Cr 1.5 today UA not suspicious for UTI CK back to normal Continue to monitoring fluid status. (4) Peripheral neuropathy: Qualifiers: Peripheral neuropathy type: polyneuropathy, unspecified Qualified Code(s): G62.9 - Polyneuropathy, unspecified Code(s): G62.9 - Polyneuropathy, unspecified Status: Acute Assessment and Plan: Continue with home medications. 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 He denies any trauma other than some discomfort to his left hip area. Continue PT and OT therapy improving Continue monitoring. (6) Dyslipidemia, goal LDL below 100: Code(s): E78.5 - Hyperlipidemia, unspecified Status: Acute Assessment and Plan: Holding atorvastatin at this time (7) Elevated AST (SGOT): Code(s): R74.01 - Elevation of levels of liver transaminase levels Status: Acute Assessment and Plan: AST on admission 140 and ALT and alk phos normal AST and ALT both elevated on redraw Hepatitis panel negative, liver u/s okay Pt has legionella pna which can cause elevated liver enzymes recheck in 2 weeks outpt. (8) Legionella pneumonia: Code(s): A48.1 - Legionnaires' disease Status: Acute Assessment and Plan: As above Subjective Date/time seen: 06/07/20 14:13 Interval history: Pt is an 84-year-old male here for pneumonia and AFib RVR.
[2020-06-07] MEDS: MELATONIN 3 MG TABLET PO (20:11)
[2020-06-08] VITALS (9 sets, daily range): BP systolic 136–180; BP diastolic 91–109; PULSE 60–107; RESP 20–24; TEMP 36.2–36.6; O2SAT 98
[2020-06-08 06:16] LABS: Hematocrit 36.5 % (42.0-52.0); Hemoglobin 11.9 g/dL (14.0-18.0); Mean Corpuscular HGB Conc 32.6 g/dl (32-36); Mean Corpuscular Hemoglobin 29.5 pg (26-34); Mean Corpuscular Volume 90.6 fl (80-100); Mean Platelet Volume 10.8 fl (7.4-10.4); Platelet Count Result 306 k/mm3 (150-375); Red Blood Count 4.03 M/mm3 (4.6-6.20); Red Cell Distribution Width 15.1 % (11.5-14.5); White Blood Count 9.8 K/mm3 (4.5-10.0)
[2020-06-08 06:40] LABS: Alanine Aminotransferase 173 U/L (4-50); Albumin Level 3.5 g/dL (3.5-5.1); Alkaline Phosphatase 86 U/L (38-126); Anion Gap 3 mmol/L (8-16); Aspartate Amino Transferase 136 U/L (17-59); Blood Urea Nitrogen 32 mg/dL (9-20); CRP 6.1 mg/dL (<1.0); Calcium 8.8 mg/dL (8.4-10.2); Carbon Dioxide 33 mmol/L (22-30); Chloride 106 mmol/L (98-107); Estimated CRCL calculation 32 ml/min; Estimated Glomerular Filt Rate 42; Glucose 130 mg/dL (75-110); Potassium 3.7 mmol/L (3.4-5.0); Sodium 142 mmol/L (137-145)
[2020-06-08] MEDS: APIXABAN 2.5 MG TABLET PO (09:18)
[2020-06-08] MEDS: ASPIRIN 81 MG CHEWABLE TABLET PO (09:18)
[2020-06-08] MEDS: LOSARTAN POTASSIUM 100 MG TABLET PO (09:19)
[2020-06-08] MEDS: PANTOPRAZOLE 40 MG TABLET PO (09:19)
[2020-06-08] MEDS: METOPROLOL TARTRATE 50 MG TAB 150 MG PO (09:19)
[2020-06-08] MEDS: GABAPENTIN 300 MG CAPSULE PO (09:19)
--- NOTE | 2020-06-08 11:32 | P.DS_ITS ---
DS: Admitting Diagnosis Admitting Diagnosis Admitting Diagnosis: PNA, afib RVR DS: Discharge Diagnosis Discharge Diagnosis (1) Atrial fibrillation with rapid ventricular response: Code(s): I48.91 - Unspecified atrial fibrillation Status: Acute Assessment and Plan: Likely from underlying PNA * Patient was initially started on a Cardizem drip, but Cardiology switched him to Metoprolol 150 Q12 and he was discharged on this. * Tele shows Afib with RVR and last HR was 102 * Echo showed normal EF 60-65%, mild LVH, mild aortic valve stenosis, severe aortic valve calcification. Mild pulmonary hypertension. * Warfarin has been switched to Eliquis * trops mildly elevated and flat, like d/t afib rvr. No ACS suspected (2) CAP (community acquired pneumonia): Code(s): J18.9 - Pneumonia, unspecified organism Status: Acute Assessment and Plan: Found on CXR * Pt is positive for legionella which will explain his elevated CK and LFTs. ID nurse notified. * CXR 06/04/20 showed worsened airspace opacities in the right mid and upper lung zones, consistent with PNA and repeat CXR shows improvement. * Covid negative, urine pneumococcal ag neg. * Patient is doing well on the cefepime and will finish out treatment on azithromycin * Blood cultures are negative * Sputum culture showed not enough sputum for testing (3) Unspecified kidney failure: Qualifiers: Renal failure chronicity: unspecified chronicity Qualified Code(s): N19 - Unspecified kidney failure Code(s): N19 - Unspecified kidney failure Status: Acute Assessment and Plan: Patient stated that he does have chronic kidney disease was noted in his chart he has stage III. * Communications Superintendent states his baseline Cr is around 2.[address] Antonio outpt * Continue home meds and repeat bmp in one week. PCP has agreed to follow this. * Cr 1.6 today * UA not suspicious for UTI * CK back to normal (4) Peripheral neuropathy: Qualifiers: Peripheral neuropathy type: polyneuropathy, unspecified Qualified Code(s): G62.9 - Polyneuropathy, unspecified Code(s): G62.9 - Polyneuropathy, unspecified Status: Acute Assessment and Plan: Continue with home medications. (5) Dizziness and giddiness: Code(s): R42 - Dizziness and giddiness Status: Acute Assessment and Plan: resolved -Continue home meds. If dizziness re-occurs, stop may need to stop HCTZ (6) Dyslipidemia, goal LDL below 100: Code(s): E78.5 - Hyperlipidemia, unspecified Status: Acute Assessment and Plan: Continue atrovastatin and follow up with CK in one week -pcp stated he will follow this (7) Elevated AST (SGOT): Code(s): R74.01 - Elevation of levels of liver transaminase levels Status: Acute Assessment and Plan: AST on admission 140 and ALT and alk phos normal * AST and ALT both elevated on redraw * Hepatitis panel negative, liver u/s okay * Pt has legionella pna which can cause elevated liver enzymes * Recheck in one week. pcp agreed to follow recheck and states his live enzymes were normal prior. (8) Legionella pneumonia: Code(s): A48.1 - Legionnaires' disease Status: Acute Assessment and Plan: As above DS: Summary Hospital Course Hospital Course: Patient is an 84-year-old male who presented emergency room for dizziness and shortness of viviana
--- NOTE | 2020-06-08 11:32 | PM.DS ---
DS: Admitting Diagnosis Admitting Diagnosis Admitting Diagnosis: PNA, afib RVR DS: Discharge Diagnosis Discharge Diagnosis (1) Atrial fibrillation with rapid ventricular response: Code(s): I48.91 - Unspecified atrial fibrillation Status: Acute Assessment and Plan: Likely from underlying PNA Patient was initially started on a Cardizem drip, but Cardiology switched him to Metoprolol 150 Q12 and he was discharged on this. Tele shows Afib with RVR and last HR was 102 Echo showed normal EF 60-65%, mild LVH, mild aortic valve stenosis, severe aortic valve calcification. Mild pulmonary hypertension. Warfarin has been switched to Eliquis trops mildly elevated and flat, like d/t afib rvr. No ACS suspected (2) CAP (community acquired pneumonia): Code(s): J18.9 - Pneumonia, unspecified organism Status: Acute Assessment and Plan: Found on CXR Pt is positive for legionella which will explain his elevated CK and LFTs. ID nurse notified. CXR 06/04/20 showed worsened airspace opacities in the right mid and upper lung zones, consistent with PNA and repeat CXR shows improvement. Covid negative, urine pneumococcal ag neg. Patient is doing well on the cefepime and will finish out treatment on azithromycin Blood cultures are negative Sputum culture showed not enough sputum for testing (3) Unspecified kidney failure: Qualifiers: Renal failure chronicity: unspecified chronicity Qualified Code(s): N19 - Unspecified kidney failure Code(s): N19 - Unspecified kidney failure Status: Acute Assessment and Plan: Patient stated that he does have chronic kidney disease was noted in his chart he has stage III. Survey Workers Supervisor states his baseline Cr is around 2.[address] Antonio outpt Continue home meds and repeat bmp in one week. PCP has agreed to follow this. Cr 1.6 today UA not suspicious for UTI CK back to normal (4) Peripheral neuropathy: Qualifiers: Peripheral neuropathy type: polyneuropathy, unspecified Qualified Code(s): G62.9 - Polyneuropathy, unspecified Code(s): G62.9 - Polyneuropathy, unspecified Status: Acute Assessment and Plan: Continue with home medications. (5) Dizziness and giddiness: Code(s): R42 - Dizziness and giddiness Status: Acute Assessment and Plan: resolved -Continue home meds. If dizziness re-occurs, stop may need to stop HCTZ (6) Dyslipidemia, goal LDL below 100: Code(s): E78.5 - Hyperlipidemia, unspecified Status: Acute Assessment and Plan: Continue atrovastatin and follow up with CK in one week -pcp stated he will follow this (7) Elevated AST (SGOT): Code(s): R74.01 - Elevation of levels of liver transaminase levels Status: Acute Assessment and Plan: AST on admission 140 and ALT and alk phos normal AST and ALT both elevated on redraw Hepatitis panel negative, liver u/s okay Pt has legionella pna which can cause elevated liver enzymes Recheck in one week. pcp agreed to follow recheck and states his live enzymes were normal prior. (8) Legionella pneumonia: Code(s): A48.1 - Legionnaires' disease Status: Acute Assessment and Plan: As above DS: Summary Hospital Course Hospital Course: Patient is an 84-year-old male who presented emergency room for dizziness and shortness of breath. Vitals in the ER were temperature 36.7? C, pulse 115, respiratory rate 23, blood pressure 171/109, pulse ox 97 on room air. Initial CBC showed hemoglobin 12.8 and hematocrit 38.2. BMP showed WILL with a creatinine of 2.2. Troponins were elevated but flat and the patient had no chest pain. Chest x-ray showed pneumonia. He was found to be in AFib RVR and admitted to the hospitalist service. He was originally placed on Cardizem drip and then transition to metoprolol. Many adjustments were made and h
--- NOTE | 2020-06-08 12:03 | PC.NURSE ---
Patient is refusing alarm and insisting on sitting in a chair without an alarm. I have asked the patient to please call when getting up to use the restroom. The patient was agreeable to this.
== END 2020-06-08 15:44 | disposition home or self-care (01) | DRG 179 ==
LOC: ANHED 10:15 → ANHIMU 10:42 → ANH3MEDSUR 06-08 04:30 → ANH2MED 06-09 15:31 → ANH3MEDSUR 06-09 15:31 → ANHIMU 06-09 15:31
PROVIDERS: Internal Medicine Cardiovascular Disease; Nurse Practitioner; Physician Assistant; Admitting Provider Family Medicine; Emergency Provider Emergency Medicine; PCP Student in an Organized Health Care Education/Training Program; Visit Provider Physician Assistant
DX: A48.1 Legionnaires' disease (principal); I48.91 Unspecified atrial fibrillation; I12.9 Hypertensive chronic kidney disease with stage 1 through stage 4 chronic kidney disease, or unspecified chronic kidney disease; N18.30 Chronic kidney disease, stage 3 unspecified; Z86.73 Personal history of transient ischemic attack (TIA), and cerebral infarction without residual deficits; E78.5 Hyperlipidemia, unspecified; Z79.01 Long term (current) use of anticoagulants; G62.9 Polyneuropathy, unspecified; I27.20 Pulmonary hypertension, unspecified; Z20.822 Contact with and (suspected) exposure to COVID-19
CPT/HCPCS: 36415; 70450; 71045; 76705; 78580; 80048; 80074; 80076; 81001; 82040; 82550; 82728; 83615; 83690; 83735; 83880; 84443; 84484; 85025; 85027; 85380; 85610; 85730; 86140; 87040; 87070; 87205; 87449; 87899; 93005; 93970; 94640; 94667; 94668; 96365; 96372; 96374; 96375; 97110; 97116; 97161; 97165; 97530; 97535; 99285; A9270; A9540; C8929; C9803; G0378; J0456; J0692; J0696; J1650; J3475; J7120; Q9957; U0003; U0005

== ENCOUNTER 2020-06-15 08:22 | Outpatient (CLI) | payer MEDICARE, SELFPAY ==
[2020-06-15 08:48] LABS: Alanine Aminotransferase 132 U/L (4-50); Albumin Level 3.4 g/dL (3.5-5.1); Alkaline Phosphatase 94 U/L (38-126); Anion Gap 6 mmol/L (8-16); Aspartate Amino Transferase 98 U/L (17-59); Bilirubin,Total 0.5 mg/dL (0.2-1.3); Blood Urea Nitrogen 30 mg/dL (9-20); Calcium 8.8 mg/dL (8.4-10.2); Carbon Dioxide 28 mmol/L (22-30); Chloride 107 mmol/L (98-107); Creatine Kinase 85 U/L (55-170); Estimated Glomerular Filt Rate 26; Glucose 158 mg/dL (75-110); Potassium 4.3 mmol/L (3.4-5.0); Sodium 141 mmol/L (137-145)
== END 2020-06-15 08:23 | disposition home or self-care (01) ==
PROVIDERS: PCP Student in an Organized Health Care Education/Training Program; Visit Provider Student in an Organized Health Care Education/Training Program
DX: R74.8 Abnormal levels of other serum enzymes (principal); I10 Essential (primary) hypertension
CPT/HCPCS: 36415; 80053; 82550

== ENCOUNTER 2020-06-30 09:56 | Outpatient (CLI) | payer MEDICARE, SELFPAY ==
[2020-06-30 10:21] LABS: Alanine Aminotransferase 33 U/L (4-50); Albumin Level 3.5 g/dL (3.5-5.1); Alkaline Phosphatase 84 U/L (38-126); Aspartate Amino Transferase 34 U/L (17-59); Bilirubin,Total 0.5 mg/dL (0.2-1.3); Creatine Kinase 66 U/L (55-170)
== END 2020-06-30 09:57 | disposition home or self-care (01) ==
LOC: ANHLAB 09:56
PROVIDERS: Physician Assistant; PCP Student in an Organized Health Care Education/Training Program; Visit Provider Student in an Organized Health Care Education/Training Program
DX: R74.8 Abnormal levels of other serum enzymes (principal); N17.9 Acute kidney failure, unspecified; R74.01 Elevation of levels of liver transaminase levels
CPT/HCPCS: 36415; 80076; 82550

== ENCOUNTER 2020-07-15 08:20 | Outpatient (CLI) | payer MEDICARE, SELFPAY ==
[2020-07-15 08:45] LABS: Anion Gap 7 mmol/L (8-16); Blood Urea Nitrogen 29 mg/dL (9-20); Calcium 8.8 mg/dL (8.4-10.2); Carbon Dioxide 29 mmol/L (22-30); Chloride 106 mmol/L (98-107); Estimated Glomerular Filt Rate 26; Glucose 179 mg/dL (75-110); Magnesium 1.5 mg/dL (1.6-2.3); Potassium 3.9 mmol/L (3.4-5.0); Sodium 142 mmol/L (137-145)
== END 2020-07-15 08:21 | disposition home or self-care (01) ==
PROVIDERS: PCP Student in an Organized Health Care Education/Training Program; Visit Provider Internal Medicine Cardiovascular Disease
DX: I25.118 Atherosclerotic heart disease of native coronary artery with other forms of angina pectoris (principal)
CPT/HCPCS: 36415; 80048; 83735

== ENCOUNTER 2020-07-17 08:34 | Outpatient (CLI) | payer MEDICARE, SELFPAY ==
[2020-07-17 09:19] LABS: NT Pro B Type Natriuretic Pept 4230 PG/ML (5-100)
== END 2020-07-17 08:35 | disposition home or self-care (01) ==
LOC: ANHLAB 08:36
PROVIDERS: PCP Student in an Organized Health Care Education/Training Program; Visit Provider Internal Medicine Cardiovascular Disease
DX: R06.00 Dyspnea, unspecified (principal); M79.89 Other specified soft tissue disorders
CPT/HCPCS: 36415; 83880

== ENCOUNTER → 2020-09-11 02:19 | Outpatient (CLI) | payer MEDICARE, SELFPAY ==
[2020-09-11 19:36] LABS: SARS-CoV-2 RNA PCR Negative
== END ==
PROVIDERS: PCP Student in an Organized Health Care Education/Training Program; Visit Provider Internal Medicine Cardiovascular Disease
DX: Z20.822 Contact with and (suspected) exposure to COVID-19 (principal)
CPT/HCPCS: C9803; U0003; U0005

== ENCOUNTER 2020-09-14 02:23 | Day surgery (SDC) | payer MEDICARE, SELFPAY ==
[2020-09-11 15:03] VITALS: BMI 28.8
[2020-09-14] VITALS (8 sets, daily range): BP systolic 167–194; BP diastolic 81–93; PULSE 42–66; RESP 14–22; TEMP 35.6–36.1; O2SAT 96–100; BMI 28.8
--- NOTE | 2020-09-14 09:00 | ECG_ITS ---
Measurements Intervals [place] Rate: 67 P: [place]: 0 QRS: 46 QRSD: 121 T: -6 QT: 447 QTc: 474 Interpretive Statements ATRIAL FIBRILLATION INTRAVENTRICULAR CONDUCTION DELAY ABNORMAL ECG Electronically Signed On 09-14-2020 11:16:43 CDT by Hakan Paulson D.O.
[2020-09-14 10:08] LABS: Anion Gap 5 mmol/L (8-16); Blood Urea Nitrogen 34 mg/dL (9-20); Calcium 9.1 mg/dL (8.4-10.2); Carbon Dioxide 29 mmol/L (22-30); Chloride 110 mmol/L (98-107); Estimated CRCL calculation 23 ml/min; Estimated Glomerular Filt Rate 27; Glucose 111 mg/dL (75-110); Magnesium 1.8 mg/dL (1.6-2.3); Potassium 4.5 mmol/L (3.4-5.0); Sodium 144 mmol/L (137-145)
--- NOTE | 2020-09-14 10:15 | WPDANESEPPF ---
Anes - Initial Pre Proc Eval Procedure: Operation Date: 09/14/20 10:30 Proposed Procedures p Electrical Cardioversion - Geoff Meadows MD Date/Time: 09/14/20 10:15 Surgeon: Geoff Meadows MD Pre Op Diagnosis: a-fib Patient Data Age: 84 Gender: M Height: 5 ft 9 in Weight: 88.6 kg Last Vital Signs Temp 96.1 F L 09/14/20 09:54 Pulse 66 09/14/20 09:54 Resp 17 09/14/20 09:54 BP 180/92 H 09/14/20 09:54 Pulse Ox 98 09/14/20 09:54 Allergies Allergy/AdvReac Type Severity Reaction Status Date / Time No Known Allergies Allergy Verified 06/01/20 08:28 Home Medications Medication Instructions Recorded Confirmed Type cholecalciferol (vitamin D3) 50 2,000 unit PO DAILY 06/13/19 09/14/20 History mcg (2,000 unit) capsule mecobalamin (vitamin B12) 1,000 1,000 mcg PO DAILY 06/13/19 09/14/20 History mcg chewable tablet propylene glycol 0.6 % eye drops 1 drop EACH EYE BID PRN ml 06/13/19 09/14/20 History atorvastatin 40 mg tablet 80 mg PO DAILY tablet 11/13/19 09/14/20 History gabapentin 300 mg capsule 300 mg PO BID cap 11/13/19 09/14/20 History isosorbide mononitrate 30 mg 60 mg PO DAILY tablet 11/13/19 09/14/20 History tablet,extended release 24 hr losartan 100 See Rx Instructions .ROUTE 04/08/20 09/14/20 Rx mg-hydrochlorothiazide 25 mg tablet .COMPLEX #90 tablet omeprazole 20 mg capsule,delayed See Rx Instructions .ROUTE 04/08/20 09/14/20 Rx release .COMPLEX #90 cap apixaban [Eliquis] 2.5 mg PO Q12HR #60 tablet 06/08/20 09/14/20 Rx metoprolol tartrate 50 mg PO Q12HR 09/11/20 09/14/20 History Laboratory Tests 09/14/20 09:36 Sodium 144 mmol/L mmol/L (137-145) Potassium 4.5 mmol/L mmol/L (3.4-5.0) Chloride 110 mmol/L H mmol/L (98-107) Carbon Dioxide 29 mmol/L mmol/L (22-30) Anion Gap 5 mmol/L L mmol/L (8-16) BUN 34 mg/dL H mg/dL (9-20) Creatinine 2.30 mg/dL H mg/dL (0.7-1.3) Estim Creat Clear Calc 23 ml/min ml/min Estimated GFR 27 L (59 - ) Glucose 111 mg/dL H mg/dL (75-110) Calcium 9.1 mg/dL mg/dL (8.4-10.2) Magnesium 1.8 mg/dL mg/dL (1.6-2.3) Patient hx anesthesia problems: none Family hx anesthesia problems: none PMFSH Past Medical History Medical History BMI 28.0-28.9,adult BPH w/o urinary obs/LUTS CAD in [place] artery Carpal tunnel syndrome 2015 CKD (chronic kidney disease) stage 3, GFR 30-59 ml/min Cubital tunnel syndrome 2016 Dizziness and giddiness Dyslipidemia, goal LDL below 100 Essential (primary) hypertension GERD (gastroesophageal reflux disease) Glaucoma History of stroke Hx of supraventricular tachycardia Hypogonadism in male 08/2011 Mild aortic stenosis Neuropathy Paroxysmal atrial fibrillation Peripheral neuropathy Pre-diabetes 02/01/2017 Pulmonary hypertension Stroke Supraventricular tachycardia Umbilical hernia without mention of obstruction or gangrene 12/11/2017 Unspecified osteoarthritis, unspecified site Vitamin B12 deficiency Vitamin D deficiency Surgical History Surgical History History of cataract extraction Bilaterally History of shoulder surgery right - around 1989 Hx of total knee arthroplasty right - 2006 Dr. Brad George at [place] S/P carpal tunnel release Bilaterally S/P cubital tunnel release Bilaterally S/P tonsillectomy and adenoidectomy Family History Family History Mother Hypertension Cerebrovascular accident Family history of malignant neoplasm of breast in first degree relative Father Family history of coronary artery disease Social History Social History Social History: The patient lives with his who is a durable power business attorney for healthcare. The patient would like to be a DNR. The patie
--- NOTE | 2020-09-14 10:52 | ECG_ITS ---
Measurements Intervals [place] Rate: 41 P: 68 [place]: 213 QRS: 28 QRSD: 114 T: 15 QT: 556 QTc: 463 Interpretive Statements SINUS BRADYCARDIA WITH FIRST DEGREE AV BLOCK INTRAVENTRICULAR CONDUCTION DELAY BORDERLINE T WAVE ABNORMALITY- INFERIOR LEADS PROLONGED QT INTERVAL ABNORMAL ECG Electronically Signed On 09-14-2020 13:43:46 CDT by Hakan Paulson D.O.
--- NOTE | 2020-09-14 11:24 | P.PCNCVR_ITS ---
Cardioversion Cardioversion Date of procedure: 09/14/20 Procedure: Elective Electrical Cardioversion Pre-op diagnosis: atrial fibrillation Post-op diagnosis: same (atrial fibrillation) Indications: Atrial fibrillation Description of procedure: Brief history present illness: Patient is a pleasant yet complicated 84-year-old male with a history of CAD, paroxysmal atrial fibrillation, chronic kidney disease, hypertension chronic anticoagulation ongoing fatigue and persistent atrial fibrillation refractory to amiodarone and metoprolol referred for elective electrical cardioversion in attempt to restore sinus rhythm. patient has not missed systemic anticoagulation for least 4 weeks and does not require transesophageal echocardiographic dionte dance. Procedure in detail: After verbal and written informed consent was obtained the patient risks, benefits, and alternatives explained in detail the patient agreed to proceed with the plan of care as outlined above. Patient was evaluated at bedside in the Endoscopy procedure suite. On examination, neck was supple with normal range of motion, no restrictions to opening of the oral cavity, jaw angle and posterior hypopharynx was clear. Lungs were clear to auscultation. Patient was placed in appropriate 30 to 45 degree angle in a supine position. Patient was monitored throughout the study with telemetry, oxygen saturation, end-tidal CO2 monitoring, blood pressure, heart rate, and respirations. Anterior and posterior defibrillator pads placed in the appropriate positions. After confi rmation of adequate sedation electrical cardioversion was carried out without complication. Patient tolerated the procedure well without difficulty. Sedation: Moderate Sedation/Anesthesia administration: Patient denied previous intolerance or complications with anesthesia/sedation but does have a history of bradycardia when in sinus rhythm. Please see anesthesiology documentation for sedation protocols and details of the case. There were no other issues or complications and patient tolerated the procedure well and sedation protocol well and I was present for the entirety. Findings: Elective electrical cardioversion: After confirmation of adequate sedation and persistence of atrial fibrillation, 200 joules synched biphasic energy x1 was delivered with alevism of sinus rhythm initially with PVC's occ junctional beats and transient ventricular bigeminy which while O2 sats were initially <90% stabilized to SB HR 42bpm. Twelve lead EKG was obtained postprocedure confirming sinus rhythm. Complications: None Conclusion: Successful alevism of sinus bradycardia with 200 joules synched biphasic energy x1. Hold Metoprolol for now due to marked bradycardia but continue Amiodarone at current dose including Eliquis without interruption. Monitor HR and BP as outpatient and call with persistent HR <50bpm or new concerns, dizziness, falls or near syncope.
--- NOTE | 2020-09-14 12:03 | SUR.PHASEII ---
RN spoke with Dr. Meadows to discuss patient's low heart rate in the 40's and blood pressure in 180's-190's systolic. Dr. Meadows came and spoke with the patient and wants the patient to discharge and take his medicines at home. He instructed the patient to take his blood pressure one hour after taking his medications at home. Dr. Meadows did not want RN to keep the patient and administer medications here to treat his BP. RN to discharge patient per Dr. Meadows.
== END 2020-09-14 12:20 | disposition home or self-care (01) ==
PROVIDERS: PCP Student in an Organized Health Care Education/Training Program; Visit Provider Internal Medicine Cardiovascular Disease
PROC: 5A2204Z Restoration of Cardiac Rhythm, Single (ICD-10-PCS; principal; 2020-09-14 10:30)
DX: I48.0 Paroxysmal atrial fibrillation (principal); I12.9 Hypertensive chronic kidney disease with stage 1 through stage 4 chronic kidney disease, or unspecified chronic kidney disease; I25.10 Atherosclerotic heart disease of native coronary artery without angina pectoris; N18.30 Chronic kidney disease, stage 3 unspecified; E78.5 Hyperlipidemia, unspecified; K21.9 Gastro-esophageal reflux disease without esophagitis; R73.03 Prediabetes; G62.9 Polyneuropathy, unspecified; E55.9 Vitamin D deficiency, unspecified; M19.90 Unspecified osteoarthritis, unspecified site; E53.8 Deficiency of other specified B group vitamins; I27.20 Pulmonary hypertension, unspecified; N40.0 Benign prostatic hyperplasia without lower urinary tract symptoms; H40.9 Unspecified glaucoma; Z79.01 Long term (current) use of anticoagulants; Z87.891 Personal history of nicotine dependence; E66.9 Obesity, unspecified; Z68.28 Body mass index [BMI] 28.0-28.9, adult
CPT/HCPCS: 36415; 80048; 83735; 92960; 93005; J2704

== ENCOUNTER 2021-03-30 07:55 | Outpatient (CLI) | payer MEDICARE, SELFPAY ==
--- NOTE | ~2021-03-30 | US_ITS ---
US arterial ankle brachial ind INDICATION: Lower extremity pain. TECHNIQUE: Segmental pressures and plethysmographic and Doppler waveforms of the brachial and lower e xtremity arteries were obtained. COMPARISON: None. FINDINGS: Right and left brachial artery pressures of 161mm Hg and 169 mm Hg, respectively, are concordant (no rmal difference <= 30 mmHg). The right ankle-brachial index (DIETER) is 1.01 (normal >= 0.9-1.0). The right great toe-brachial index (TBI) is 0.6 (normal >= 0.60). The left DIETER is 1.15. The left TBI is 0.38. IMPRESSION: 1. Normal right ankle and toe brachial indices. 2: Normal left ankle brachial index. Diminished left toe brachial index, consistent with peripheral a rterial disease. Reviewed, dictated and finalized at location B. PROCESSING CENTER MANAGER IMPRESSION: 1. Normal right ankle and toe brachial indices. 2: Normal left ankle brachial index. Diminished left toe brachial index, consis tent with peripheral arterial disease.
== END 2021-03-30 07:56 | disposition home or self-care (01) ==
PROVIDERS: PCP Student in an Organized Health Care Education/Training Program; Visit Provider Nurse Practitioner Adult Health
DX: M79.605 Pain in left leg (principal); M79.604 Pain in right leg; R09.89 Other specified symptoms and signs involving the circulatory and respiratory systems
CPT/HCPCS: 93922

== ENCOUNTER 2021-08-12 12:54 | Outpatient (CLI) | payer MEDICARE, SELFPAY ==
--- NOTE | ~2021-08-12 | US_ITS ---
EXAMINATION: US thyroid DATE: 08/12/2021 13:25 INDICATION: Hypothyroidism. TECHNIQUE: Multiple ultrasound images of the thyroid were obtained. COMPARISON: None. FINDINGS: The right thyroid lobe measures 5.1 x 2.6 x 3.1 cm. The left thyroid lobe measures 4.2 x 1.7 x 2.3 c m. The thyroid demonstrates diffusely heterogeneous hypoechogenicity. Vascularity is increased. No d iscrete nodule. IMPRESSION: 1. 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 Reviewed, dictated and finalized at location A.
== END 2021-08-12 12:55 | disposition home or self-care (01) ==
LOC: ANHIMG 12:57
PROVIDERS: PCP Student in an Organized Health Care Education/Training Program; Visit Provider Student in an Organized Health Care Education/Training Program
DX: E03.9 Hypothyroidism, unspecified (principal)
CPT/HCPCS: 76536

== ENCOUNTER 2022-02-23 20:59 | Emergency (ER) | payer MEDICARE, SELFPAY ==
[2022-02-23 21:07] VITALS: BP 193/91; PULSE 61; RESP 20; TEMP 36.4; O2SAT 99
[2022-02-23 22:42] VITALS: BP 194/72; PULSE 50; RESP 16; TEMP 36.8; O2SAT 98
--- NOTE | 2022-02-23 22:59 | ECG_ITS ---
Measurements Intervals [place] Rate: 48 P: 63 MA: 210 QRS: 16 QRSD: 121 T: 4 QT: 401 QTc: 361 Interpretive Statements SINUS BRADYCARDIA WITH FIRST DEGREE AV BLOCK MODERATE INTRAVENTRICULAR CONDUCTION DELAY [110+ ms QRS DURATION] NONSPECIFIC ST & T-WAVE ABNORMALITY COMPARED TO ECG 09/14/2020 10:55:35 NO SIGNIFICANT CHANGES Electronically Signed On 02-24-2022 14:04:19 CDT by Stacy Laureano M.D.
--- NOTE | 2022-02-23 23:07 | ED.RECABL ---
HPI - Recheck/Abnormal Lab/Rx General Chief Complaint: Recheck/Abnormal Lab/Rx Stated Complaint: high blood pressure Time Seen by Provider: 02/23/22 22:43 Source: patient Mode of arrival: ambulatory Limitations: no limitations History of Present Illness HPI narrative: This is a 86 year old male that presents to the ER for hypertension. Reports he took his blood pressure tonight and it was 220 systolic. He has been having trouble with his blood pressure being elevated the last couple of weeks. Reports he was recently switched to irbesartan by his mortgage lender. He has been taking this daily as prescribed. Denies chest pain, shortness of breath, swelling in his legs, headache, or focal numbness or weakness. Related Data Home Medications Medication Instructions Recorded Confirmed cholecalciferol (vitamin D3) 50 2,000 unit PO DAILY 06/13/19 09/14/20 mcg (2,000 unit) capsule mecobalamin (vitamin B12) 1,000 1,000 mcg PO DAILY 06/13/19 09/14/20 mcg chewable tablet propylene glycol 0.6 % eye drops 1 drop ophthalmic (eye) BID PRN 06/13/19 09/14/20 (Systane Complete) Dry Eye(S) atorvastatin 40 mg tablet 80 mg PO DAILY 11/13/19 09/14/20 gabapentin 300 mg capsule 300 mg PO BID 11/13/19 09/14/20 isosorbide mononitrate 30 mg 60 mg PO DAILY 11/13/19 09/14/20 tablet,extended release 24 hr metoprolol tartrate 50 mg tablet 50 mg PO Q12HR 09/11/20 09/14/20 Allergies Allergy/AdvReac Type Severity Reaction Status Date / Time No Known Allergies Allergy Verified 06/01/20 08:28 Review of Systems Review of Systems: CONSTITUTIONAL: Denies fever CARDIOVASCULAR: Denies chest pain RESPIRATORY: Denies dyspnea. NEUROLOGIC: Denies headache, numbness, or weakness. All systems reviewed & are unremarkable except as noted in HPI and below PMFSH Past Medical History Medical History BMI 28.0-28.9,adult BPH w/o urinary obs/LUTS CAD in [place] artery Carpal tunnel syndrome 2016 CKD (chronic kidney disease) stage 3, GFR 30-59 ml/min Cubital tunnel syndrome 2016 Dizziness and giddiness Dyslipidemia, goal LDL below 100 Essential (primary) hypertension GERD (gastroesophageal reflux disease) Glaucoma History of stroke Hx of supraventricular tachycardia Hypogonadism in male 08/2011 Mild aortic stenosis Neuropathy Paroxysmal atrial fibrillation Peripheral neuropathy Pre-diabetes 02/01/2017 Pulmonary hypertension Stroke Supraventricular tachycardia Umbilical hernia without mention of obstruction or gangrene 12/11/2017 Unspecified osteoarthritis, unspecified site Vitamin B12 deficiency Vitamin D deficiency Surgical History Surgical History History of cataract extraction Bilaterally History of shoulder surgery right - around 1989 Hx of total knee arthroplasty right - 2006 Dr. Brad George at [place] S/P carpal tunnel release Bilaterally S/P cubital tunnel release Bilaterally S/P tonsillectomy and adenoidectomy Family History Family History Mother Hypertension Cerebrovascular accident Family history of malignant neoplasm of breast in first degree relative Father Family history of coronary artery disease Social History Social History Social History: The patient lives with his who is a durable power finance attorney for healthcare. The patient would like to be a DNR. The patient stated that he smoked many years ago and quit in 1965. He said he no longer drinks alcohol since he is on a blood thinner. He has 3 children. He is retired from [employer] and [employer]. Smoking packs per day: 1 Smoking cigarettes per day: 20.0 Years smoked: 12 Smoking pack-years: 12.00 Smoking status: Former smoker Tobacco type: cigarettes Second hand tobacco smoke exposure: No Smoking end date: 0
[2022-02-23 23:21] LABS: Basophils Absolute Auto 0.1 K/mm3 (0.0-0.1); Basophils Percent Auto 0.9 % (0.2-1.2); Hematocrit 36.3 % (42.0-52.0); Hemoglobin 11.5 g/dL (14.0-18.0); Immature Granulocyte Absolute 0.04 K/mm3 (0.00-0.031); Immature Granulocyte Percent A 0.6 % (0-0.5); Lymphocytes Percent Auto 20.2 % (18.3-44.2); Mean Corpuscular HGB Conc 31.7 g/dl (32-36); Mean Corpuscular Hemoglobin 30.5 pg (26-34); Mean Corpuscular Volume 96.3 fl (80-100); Mean Platelet Volume 10.8 fl (7.4-10.4); Monocytes Absolute Auto 0.9 K/mm3 (0.1-0.6); Monocytes Percent Auto 13.5 % (2.6-8.5); Neutrophils Absolute Auto 4.2 K/mm3 (1.3-6.7); Neutrophils Percent Auto 64.8 % (45.5-73.1); Platelet Count Result 189 k/mm3 (150-375); Red Blood Count 3.77 M/mm3 (4.6-6.20); White Blood Count 6.5 K/mm3 (4.5-10.0)
[2022-02-23 23:30] VITALS: BP 202/87; PULSE 49; RESP 16; O2SAT 97
[2022-02-23 23:31] LABS: Anion Gap 13 mmol/L (8-16); Blood Urea Nitrogen 37 mg/dL (9-20); Calcium 8.6 mg/dL (8.4-10.2); Carbon Dioxide 25 mmol/L (22-30); Chloride 107 mmol/L (98-107); Estimated CRCL calculation 20 ml/min; Estimated Glomerular Filt Rate 25; Glucose 98 mg/dL (65-110); Potassium 3.9 mmol/L (3.4-5.0); Sodium 145 mmol/L (137-145)
[2022-02-23] MEDS: amLODIPine BESYLATE 5 MG TABLET PO (23:58)
[2022-02-24 00:19] VITALS: BP 202/78; PULSE 49; RESP 16; TEMP 36.8; O2SAT 96
== END 2022-02-24 00:20 | disposition home or self-care (01) ==
PROVIDERS: Physician Assistant; Emergency Provider Emergency Medicine; PCP Student in an Organized Health Care Education/Training Program
DX: I12.9 Hypertensive chronic kidney disease with stage 1 through stage 4 chronic kidney disease, or unspecified chronic kidney disease (principal); N18.4 Chronic kidney disease, stage 4 (severe); R00.1 Bradycardia, unspecified; Z87.891 Personal history of nicotine dependence; I25.10 Atherosclerotic heart disease of native coronary artery without angina pectoris; E78.5 Hyperlipidemia, unspecified; K21.9 Gastro-esophageal reflux disease without esophagitis; I27.20 Pulmonary hypertension, unspecified; M19.90 Unspecified osteoarthritis, unspecified site
CPT/HCPCS: 36415; 80048; 85025; 93005; 99283; A9270

== ENCOUNTER 2022-06-23 10:54 | Outpatient (CLI) | payer MEDICARE, SELFPAY ==
--- NOTE | ~2022-06-23 | US_ITS ---
Renal-Bladder ultrasound Clinical History: Chronic kidney disease Technique: Real-time sonographic imaging of the kidneys and urinary bladder was performed. Findings: The right kidney measures 9.2 cm in length and the left kidney measures 10.2 cm. There is n o hydronephrosis or renal calculus identified. Renal cortical echogenicity is within normal limits. N o renal mass lesion is identified. The urinary bladder is moderately distended at the time of this exam. Prostate gland is enlarged, and probably indents through the bladder base. Urinary bladder mass not excluded. Impression: No hydronephrosis. Enlarged prostate gland which probably indents through the bladder base. Urinary bladder mass is not completely excluded, though felt to be less likely. Reviewed, dictated and finalized at location . NEERING MATHEMATICIAN Impression: No hydronephrosis. Enlarged prostate gland which probably indents through the bladder base. Urinar y bladder mass is not completely excluded, though felt to be less likely.
== END 2022-06-23 10:55 | disposition home or self-care (01) ==
LOC: ANHIMG 10:56
PROVIDERS: PCP Student in an Organized Health Care Education/Training Program; Visit Provider Internal Medicine Nephrology
DX: N18.4 Chronic kidney disease, stage 4 (severe) (principal); N40.0 Benign prostatic hyperplasia without lower urinary tract symptoms
CPT/HCPCS: 76775

== ENCOUNTER 2022-10-06 13:52 | Outpatient (CLI) | payer MEDICARE, SELFPAY ==
--- NOTE | ~2022-10-06 | US_ITS ---
. EXAMINATION: US art doppler w press LE BI DATE: 10/06/2022 15:07 INDICATION: Peripheral arterial disease. TECHNIQUE: Segmental pressures and plethysmographic and Doppler waveforms of the brachial and lower e xtremity arteries were obtained. COMPARISON: Arterial Doppler 03/30/2021 FINDINGS: Right and left brachial artery pressures of 137 mm Hg and 151 mm Hg, respectively, are concordant (no rmal difference <= 30 mmHg). The right thigh, below knee, and ankle pressures could not be measured due to inability to cuff occlu de the arteries. The right great toe-brachial index (TBI) is 0.19 (normal >= 0.65). Arterial Doppler waveforms are biphasic from common femoral artery to the ankle. The left thigh, below knee, and ankle pressures could not be measured due to inability to cuff occlud e the arteries. The left great toe-brachial index (TBI) is 0.32 (normal >= 0.65). Arterial Doppler wa veforms are at least triphasic in common femoral artery and biphasic from popliteal artery to the ank le. IMPRESSION: 1. Decreased TBIs and nondiagnostic ABIs, consistent with arterial occlusive disease. Reviewed, dictated and finalized at location A. IMPRESSION: 1. Decreased TBIs and nondiagnostic ABIs, consistent with arterial occlusive di sease.
== END 2022-10-06 13:53 | disposition home or self-care (01) ==
PROVIDERS: PCP Student in an Organized Health Care Education/Training Program; Visit Provider Internal Medicine Cardiovascular Disease
DX: I70.213 Atherosclerosis of native arteries of extremities with intermittent claudication, bilateral legs (principal)
CPT/HCPCS: 93923

== ENCOUNTER 2023-06-06 01:23 | Day surgery (SDC) | payer MEDICARE, SELFPAY ==
--- NOTE | 2023-06-06 07:30 | ECG_ITS ---
Measurements Intervals [place] Rate: 73 P: [place]: 0 QRS: 41 QRSD: 161 T: -15 QT: 457 QTc: 505 Interpretive Statements ATRIAL FIBRILLATION INTRAVENTRICULAR CONDUCTION DELAY [130+ ms QRS DURATION] COMPARED TO ECG 02/23/2022 23:19:29 ATRIAL FIBRILLATION NOW PRESENT Electronically Signed On 06-06-2023 8:49:25 EVENING SITTER by Stacy Laureano M.D.
[2023-06-06 07:51] VITALS: BP 140/84; PULSE 79; RESP 29; TEMP 36.6; O2SAT 97; BMI 27.5
[2023-06-06 08:09] LABS: Anion Gap 8 mmol/L (8-16); Blood Urea Nitrogen 61 mg/dL (9-20); Calcium 9.1 mg/dL (8.4-10.2); Carbon Dioxide 28 mmol/L (22-30); Chloride 101 mmol/L (98-107); Estimated CRCL calculation 12 ml/min; Estimated Glomerular Filt Rate 14; Glucose 106 mg/dL (65-110); Potassium 3.9 mmol/L (3.4-5.0); Sodium 137 mmol/L (137-145)
[2023-06-06 09:10] VITALS: BP 127/80; PULSE 49; RESP 16; TEMP 36.6; O2SAT 97
[2023-06-06 09:15] VITALS: BP 135/110; PULSE 51; RESP 12; TEMP 36.6; O2SAT 100
--- NOTE | 2023-06-06 09:18 | WPDHPUPDATE1 ---
History and Physical Update Update Date/Time: 06/06/23 09:18 History and Physical has been reviewed, including an updated exam of the patient. There are NO changes in the patient's condition. Risks, benefits, and alternatives have been discussed and questions answered. Patient agrees to proceed with procedure.
--- NOTE | 2023-06-06 09:18 | WPDMODSED ---
Moderate Sedation Note-Pt Data Patient Data Diagnosis: Atrial fibrillation Present Complaint: Atrial fibrillation Procedure to be performed/Plan: Cardioversion Allergies Allergy/AdvReac Type Severity Reaction Status Date / Time No Known Allergies Allergy Verified 06/06/23 07:44 Home Medications Medication Instructions Recorded Confirmed Type apixaban 2.5 mg tablet (Eliquis) 2.5 mg PO Q12HR #60 tabs 06/08/20 06/06/23 Rx losartan 100 mg tablet 100 mg PO DAILY #90 tabs 02/01/23 06/06/23 Rx amiodarone 200 mg tablet 200 mg PO DAILY 02/13/23 06/06/23 History gabapentin 300 mg capsule 300 mg PO BID 02/13/23 06/06/23 History isosorbide mononitrate 30 mg 30 mg PO DAILY 02/13/23 06/06/23 History tablet,extended release 24 hr levothyroxine 75 mcg capsule 88 mcg PO DAILY 02/13/23 06/06/23 History mabfyeky-tdxsrwjy-yniqm acid 400 1 tablet PO DAILY 02/13/23 06/06/23 History mcg-vit K 20 mcg-lycop 300 mcg tablet omeprazole 20 mg tablet,delayed 20 mg PO DAILY 02/13/23 06/06/23 History release atorvastatin 80 mg tablet 50 mg PO DAILY 06/06/23 06/06/23 History cyanocobalamin (vitamin B-12) 100 100 mcg PO DAILY 06/06/23 06/06/23 History mcg tablet furosemide 40 mg tablet 40 mg PO DAILY 06/06/23 06/06/23 History hydrochlorothiazide 25 mg tablet 25 mg PO DAILY 06/06/23 06/06/23 History Current Medications: Active Medications Sodium Chloride (Normal Saline Iv) 1,000 mls @ 30 mls/hr IV CONT .Q24H SARAH Sedation/Anesthesia: No previous sedation/anesthesia problems (including family history). [facility] Past Medical History Medical History BMI 28.0-28.9,adult BPH w/o urinary obs/LUTS CAD in [place] artery Carpal tunnel syndrome 2016 CKD (chronic kidney disease) stage 3, GFR 30-59 ml/min Cubital tunnel syndrome 2016 Dizziness and giddiness Dyslipidemia, goal LDL below 100 Essential (primary) hypertension GERD (gastroesophageal reflux disease) Glaucoma History of stroke Hx of supraventricular tachycardia Hypogonadism in male 08/2011 Mild aortic stenosis Neuropathy Paroxysmal atrial fibrillation Peripheral neuropathy Pre-diabetes 02/01/2017 Pulmonary hypertension Stroke Supraventricular tachycardia Umbilical hernia without mention of obstruction or gangrene 12/11/2017 Unspecified osteoarthritis, unspecified site Vitamin B12 deficiency Vitamin D deficiency Surgical History Surgical History History of cataract extraction Bilaterally History of shoulder surgery right - around 1989 Hx of total knee arthroplasty right - 2006 Dr. Brad George at [place] S/P carpal tunnel release Bilaterally S/P cubital tunnel release Bilaterally S/P tonsillectomy and adenoidectomy Family History Family History Mother Hypertension Cerebrovascular accident Family history of malignant neoplasm of breast in first degree relative Father Family history of coronary artery disease Social History Social History Social History: The patient lives with his who is a durable power divorce attorney for healthcare. The patient would like to be a DNR. The patient stated that he smoked many years ago and quit in 1965. He said he no longer drinks alcohol since he is on a blood thinner. He has 3 children. 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 Smoking packs per day: 1 Smoking cigarettes per day: 20.0 Years smoked: 12 Smoking pack-years: 12.00 Smoking status: Former smoker Tobacco type: cigarettes Second hand tobacco smoke exposure: No Smoking end date: 05/01/1965 Additional smoking assessment comments: 1PPD for 10 years Alcohol intake: former Alcohol use details: used to drink 5-6 drinks per day for half his life. Substance use: never Substance use type: does not use Lack of [place]
--- NOTE | 2023-06-06 09:19 | WPDCARDVER ---
Cardioversion Cardioversion Date of procedure: 06/06/23 Procedure: Synchronized electrical cardioversion Pre-op diagnosis: Atrial fibrillation Post-op diagnosis: Other (Sinus bradycardia) Indications: Symptomatic atrial fibrillation Description of procedure: Defibrillator pads placed in an anteroposterior position. Time out performed by LUIS CARLOS Berg. Total of Propofol 40mg IV administered by me. Once patient was adequately sedated, synchronized cardioversion performed with 1 shock at 200 joules, which restored sinus rhythm. No periprocedural complications. Sedation: Total of Propofol 40mg IV. Findings: Successful cardioversion to sinus bradycardia with 1 shock at 200 joules Conclusion: Successful cardioversion to sinus bradycardia with 1 shock at 200 joules
[2023-06-06 09:30] VITALS: BP 92/55; BP 99/62; PULSE 50; PULSE 52; RESP 15; RESP 16; TEMP 36.6; O2SAT 100; O2SAT 99
--- NOTE | 2023-06-06 09:30 | ECG_ITS ---
Measurements Intervals [place] Rate: 49 P: 66 [place]: 233 QRS: 36 QRSD: 152 T: 31 QT: 521 QTc: 471 Interpretive Statements SINUS BRADYCARDIA WITH FIRST DEGREE AV BLOCK WITH OCCASIONAL VENTRICULAR PREMATURE COMPLEXES INTRAVENTRICULAR CONDUCTION DELAY [130+ ms QRS DURATION] COMPARED TO ECG 06/06/2023 07:43:48 SINUS BRADYCARDIA NOW PRESENT Electronically Signed On 06-06-2023 13:50:23 VISUAL MANAGER by Stacy Laureano M.D.
[2023-06-06 10:00] VITALS: BP 110/60; PULSE 53; RESP 16; O2SAT 97
[2023-06-06 10:16] VITALS: BP 110/64; PULSE 51; RESP 14; O2SAT 98
== END 2023-06-06 10:16 | disposition home or self-care (01) ==
PROVIDERS: PCP Student in an Organized Health Care Education/Training Program; Visit Provider Internal Medicine
PROC: 5A2204Z Restoration of Cardiac Rhythm, Single (ICD-10-PCS; principal; 2023-06-06 09:00)
DX: I48.0 Paroxysmal atrial fibrillation (principal); I12.9 Hypertensive chronic kidney disease with stage 1 through stage 4 chronic kidney disease, or unspecified chronic kidney disease; N18.30 Chronic kidney disease, stage 3 unspecified; I25.10 Atherosclerotic heart disease of native coronary artery without angina pectoris; E78.5 Hyperlipidemia, unspecified; K21.9 Gastro-esophageal reflux disease without esophagitis; H40.9 Unspecified glaucoma; R73.03 Prediabetes; I47.10 Supraventricular tachycardia, unspecified; E55.9 Vitamin D deficiency, unspecified; E53.8 Deficiency of other specified B group vitamins; I27.20 Pulmonary hypertension, unspecified; Z79.01 Long term (current) use of anticoagulants; Z86.73 Personal history of transient ischemic attack (TIA), and cerebral infarction without residual deficits; Z87.891 Personal history of nicotine dependence
CPT/HCPCS: 36415; 80048; 83735; 92960; J2250; J2704; J3010; J7030

== ENCOUNTER 2025-02-04 13:26 | Outpatient (CLI) | payer MEDICARE, SELFPAY ==
--- NOTE | ~2025-02-04 | US_ITS ---
Clinical History: Near syncope Examination: US carotid duplex BI Comparison: 04/05/2019 Technique: Grayscale, color, duplex/spectral Doppler sonography carotid and vertebral arteries. Distal CCA and Peak ICA systolic velocities provided. Society of Radiologists in Ultrasound (SRU) consensus criteria utilized, indirectly assessing stenosis by velocities. Findings: Mild plaque Right side: CCA - 57 cm/sec. ICA - 69 cm/sec. ICA/CCA - 1.2 Left Side: CCA - 58 cm/sec. ICA - 51 cm/sec. ICA/CCA - 0.9 Normal antegrade flow measured bilateral vertebral arteries. IMPRESSION: 1. No hemodynamically significant ICA stenosis (i.e., if any stenosis, less than 50%). 2. Normal bilateral antegrade vertebral artery flow. Stenosis measured by Society of Radiologists in Ultrasound (SRU) criteria. Reviewed, dictated and finalized at location R. IMPRESSION: 1. No hemodynamically significant ICA stenosis (i.e., if any stenosis, less th an 50%). 2. Normal bilateral antegrade vertebral artery flow. Stenosis measured by Society of Radiologists in Ultrasound (SRU) criteria.
--- OUTSIDE RECORDS SUMMARY | 2025-02-04 14:23 | XMS_ITS | Encounter Summary ---
Author Organization [facility] Address [address] [place] [address] [place] [address] Care Team Providers Care Plant Packer Name Role Phone Unavailable Primary Care Provider Unavailabl e Encounter Details Date Type Department Care Team (Late st Contact Info) Description 07/15/2024 Lab Requisition [facility] - DermPath Lab [address] [place] [address] Eve Rojas MD [address] [facility] [address] [place] [address] Social History Tobacco Use Types Packs/Day Years Used Date Smoking Tobacco: Never Assessed Sex and Gender Information Value Date Recorded Sex Assigned at Not on file 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 Gender Identity Not on file Sexual Orientation Not on file documented as of this encounter Plan of Treatment Not on file documented as of this encounter Procedures Procedure Name Priority Date/Time Associated Diagnosis Comments DERMATOPATHOLOGY Routine 07/15/2024 11:2 4 AM CDT documented in this encounter Results * DERMATOPATHOLOGY (07/15/2024 11:24 AM CDT) Case Report Dermatopathology Report Case: [id number] Authorizing Provider: Eve Rojas MD Collected: 07/15/2024 11:24 AM Ordering Location: [facility] - Received: 07/16/2024 06:42 AM DermPath Lab Pathologist: Florecita Dill MD Specimen: Skin, left calf 12:52 PM CDT DERMATOPATHOLOGY LABORATORY Final Diagnosis Specimen A. SKIN, left calf: DERMAL SCAR RESIDUAL SQUAMOUS CELL CARCINOMA NOT IDENTIFIED (L90.5) 12:52 PM CDT DERMATOPATHOLOGY LABORATORY at 1252 CDT Clinical History Bx Proven SCC Check margins/prior biopsy 12:52 PM CDT DERMATOPATHOLOGY LABORATORY Gross Description Specimen A: Received is one formalin filled container labeled with the patient's name and designated left calf.The specimen consists of an ellipse measuring [id number] mm and is oriented with the notch at the 12 o'clock position labeled on the requisition as notch. The 12 to 6 o'clock margin is inked green. The 6 o'clock to 12 o'clock margin is inked red. The 12 o'clock tip is submitted in cassette 1. The 6 o'clock tip is submitted in cassette 2. The remainder of the ellipse is serially sectioned and submitted in cassettes 3-5. Jar 0. 12:52 PM CDT DERMATOPATHOLOGY LABORATORY Microscopic Description Specimen A. SKIN, left calf: There are fibroblasts and collagen bundles oriented parallel to the skin surface. There are elongated blood vessels, some of which are oriented perpendicular to the skin surface. No residual squamous cell carcinoma is identified. 12:52 PM CDT DERMATOPATHOLOGY LABORATORY Disclaimer An external and internal positive and negative controls are appropriate for the histochemical, immunohistochemical and immunofluorescence stain(s) in this case (if any), except where stated explicitly. The performance characteristics of the stain(s) cited in this report were developed and its performance characteristic determined by the Dermatopathology Laboratory at [facility], directed by Dr. Fariba Echols. These tests need not be, and therefore are not, approved by the [place] Food and Drug Administration. The tests are used for clinical purposes. Billing Codes Specimen Charges Stain Charges 62305 1 12:52 PM CDT DERMATOPATHOLOGY LABORATORY Embedded Images 12:52 PM CDT DERMATOPATHOLOGY LABORATORY Pathology/Cytolo gy TISSUE SPECIMEN FROM SKIN / Unknown 07/15/2024 11:24 AM CDT 07/16/2024 6:42 AM CDT us Eve Rojas MD LAB - PATHOLOGY/CYTOLOGY ORD ERABLES Final Result DERMATOPATHOLOGY LABORATORY [facility] - Department of Dermatology [address] [phone] documented in this encounter Visit Diagnoses Not on filedocumented in this encounter
--- OUTSIDE RECORDS SUMMARY | 2025-02-04 14:23 | XMS_ITS | Encounter Summary ---
Author Organization [facility] Address [address] [place] [address] [place] [address] Care Team Providers Care Glass Inspector Name Role Phone Unavailable Primary Care Provider Unavailabl e Encounter Details Date Type Department Care Team (Late st Contact Info) Description 11/08/2023 Lab Requisition 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 - Received: 11/10/2023 07:04 AM DermPath Lab Pathologist: Florecita Dill MD Specimen: Skin, right lower leg 4 2:31 PM CDT DERMATOPATHOLOGY LABORATORY Final Diagnosis Specimen A. SKIN, right lower leg: SQUAMOUS CELL CARCINOMA, WELL DIFFERENTIATED (C44.722) 4 2:31 PM CDT DERMATOPATHOLOGY LABORATORY at 1431 CDT Clinical History R/O stasis vs eczema; non-healing 4 2:31 PM CDT DERMATOPATHOLOGY LABORATORY Gross Description Specimen A: Received is one formalin filled container labeled with the patient's name and designated right lower leg. The specimen consists of a shave biopsy measuring [id number] mm. Jar 0. 2:31 PM CDT DERMATOPATHOLOGY LABORATORY Microscopic Description Specimen A. SKIN, right lower leg: Arising in the epidermis and extending into the dermis there are irregularly shaped aggregates of keratinocytes showing evidence of premature cornification. 4 2:31 PM CDT DERMATOPATHOLOGY LABORATORY Disclaimer An external and internal positive and negative controls are appropriate for the histochemical, immunohistochemical and immunofluorescence stain(s) in this case (if any), except where stated explicitly. The performance characteristics of the stain(s) cited in this report were developed and its performance characteristic determined by the Dermatopathology Laboratory at [facility], directed by Dr. Fariba Echols. These tests need not be, and therefore are not, approved by the [place] Food and Drug Administration. The tests are used for clinical purposes. Billing Codes Specimen Charges Stain Charges 55610 1 4 2:31 PM CDT DERMATOPATHOLOGY LABORATORY Embedded Images 2:31 PM CDT DERMATOPATHOLOGY LABORATORY Pathology/Cytolo gy TISSUE SPECIMEN FROM SKIN / Unknown 11/08/2023 1:11 PM CDT 11/10/2023 7:04 AM CDT Caryn Su MD LAB - PATHOLOGY/CYTOLOGY OR DERABLES Final Result DERMATOPATHOLOGY LABORATORY [facility] - Department of Dermatology [address] [place] [address], [facility] [phone] documented in this encounter Visit Diagnoses Not on filedocumented in this encounter
--- OUTSIDE RECORDS SUMMARY | 2025-02-04 14:23 | XMS_ITS | Encounter Summary ---
Author Organization [facility] Address [address] [place] [address] [place] [address] Care Team Providers Care Snow Fence Erector Name Role Phone Unavailable Primary Care Provider Unavailabl e Encounter Details Date Type Department Care Team (Late st Contact Info) Description 11/20/2023 Lab Requisition [facility] - DermPath Lab [address] [facility] [place] [phone] Caryn Su MD [address] [facility] [address] [place] [address] Social History Tobacco Use Types Packs/Day Years Used Date Smoking Tobacco: Never Assessed Sex and Gender Information Value Date Recorded Sex Assigned at Not on file 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 Gender Identity Not on file Sexual Orientation Not on file documented as of this encounter Plan of Treatment Not on file documented as of this encounter Procedures Procedure Name Priority Date/Time Associated Diagnosis Comments DERMATOPATHOLOGY Routine 11/20/2023 10:3 4 AM CDT documented in this encounter Results * DERMATOPATHOLOGY (11/20/2023 10:34 AM CDT) Case Report Dermatopathology Report Case: [id number] Authorizing Provider: Caryn Su MD Collected: 11/20/2023 10:34 AM Ordering Location: [facility] Physician [facility] - Received: 11/20/2023 04:02 PM DermPath Lab Pathologist: Rosana Gavin MD Specimen: Skin, right lower leg 4 3:58 PM CDT DERMATOPATHOLOGY LABORATORY Final Diagnosis Specimen A. SKIN, right lower leg: SQUAMOUS CELL CARCINOMA, WELL DIFFERENTIATED (C44.722) NOT PRESENT AT MARGIN DERMAL SCAR (L90.5) 4 3:58 PM CDT DERMATOPATHOLOGY LABORATORY at 1558 CDT Clinical History R/O SCC, Biopsy proven 4 3:58 PM CDT DERMATOPATHOLOGY LABORATORY Gross Description Specimen A: Received is one formalin filled container labeled with the patient's name and designated right lower leg. The specimen consists of a non-oriented ellipse of skin measuring [id number] mm. The epidermal surface is unremarkable. The margin is inked green. The 12 o'clock and 6 o'clock tips are submitted in cassette 1. The remainder of the ellipse is serially sectioned and submitted in cassette 2-4. Jar 0. 4 3:58 PM CDT DERMATOPATHOLOGY LABORATORY Microscopic Description Specimen A. SKIN, right lower leg: Arising in the epidermis and extending into the dermis there are irregularly shaped aggregates of keratinocytes showing evidence of premature cornification. This lesion is not present at the margin of the specimen. There are fibroblasts and collagen bundles oriented parallel to the skin surface with elongated blood vessels, some of which are oriented perpendicular to the skin surface. 4 3:58 PM CDT DERMATOPATHOLOGY LABORATORY Disclaimer An external and internal positive and negative controls are appropriate for the histochemical, immunohistochemical and immunofluorescence stain(s) in this case (if any), except where stated explicitly. The performance characteristics of the stain(s) cited in this report were developed and its performance characteristic determined by the Dermatopathology Laboratory at [facility], directed by Dr. Fariba Echols. These tests need not be, and therefore are not, approved by the [place] Food and Drug Administration. The tests are used for clinical purposes. Billing Codes Specimen Charges Stain Charges 17531 1 4 3:58 PM CDT DERMATOPATHOLOGY LABORATORY Embedded Images 4 3:58 PM CDT DERMATOPATHOLOGY LABORATORY Pathology/Cytolo gy TISSUE SPECIMEN FROM SKIN / Unknown 11/20/2023 10:34 AM CDT 11/20/2023 4:02 PM CDT us Caryn Su MD LAB - PATHOLOGY/CYTOLOGY OR DERABLES Final Result DERMATOPATHOLOGY LABORATORY [facility] - Department of Dermatology [address] [place] [address], [facility] [phone] documented in this encounter Visit Diagnoses Not on filedocumented in this encounter
--- OUTSIDE RECORDS SUMMARY | 2025-02-04 14:23 | XMS_ITS | Clinical Summary ---
Author Organization [facility] Address [address] [facility] [place] [address] Care Team Providers Care Medical Engineer Name Role Phone Unavailable Primary Care Provider Unavailabl e Source Comments [facility],non-owned Affiliates and Associated Physician Practices is amultiple site organization consisting of ambulatory clinics and hospital sitesin [place], [place], [place] and [place]. This disclosure is being madepursuant to the Care Everywhere program and may not contain all information available regarding this patient. 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 Gender Identity Not on file Sexual Orientation Not on file Plan of Treatment Health Maintenance Due Date Last Done Comments MEDICARE AWV 12 MONTHS 1937 DTAP/TDAP/TD VACCINES (1 - Tdap) 1956 PNEUMOCOCCAL VACCINE 50+ (1 of 1 - PCV) 12/18/1987 ZOSTER VACCINE (1 of 2) 12/18/1987 Respiratory Syncytial Virus (RSV) Vaccine Pt: or over 60 yrs (1 - 1-dose 75+ series) 2012 DEPRESSION SCREENING 05/01/2024 COVID-19 VACCINE (1 - 2023-2 5 season) 2024 INFLUENZA VACCINE (#1) 2024 HEPATITIS B VACCINE Aged Out No longe r eligible based on patient's age to complete this topic HIB VACCINE Aged Out No longer eligi ble based on patient's age to complete this topic HPV VACCINE Aged Out No longer eligi ble based on patient's age to complete this topic MENINGOCOCCAL (Group B) VACC INE SHARED DECISION-MAKING Aged Out No longer eligibl e based on patient's age to complete this topic MENINGOCOCCAL GROUPS A/C/Y/W VACCINE Aged Out No longer eligible b ased on patient's age to complete this topic Insurance [place]ICARE [facility] [place] [id number]
--- OUTSIDE RECORDS SUMMARY | 2025-02-04 14:23 | XMS_ITS | Encounter Summary ---
Author Organization [facility] Address [address] [place] [address] Care Team Providers Care Custom Bike Builder Name Role Phone Daniel Pizano DO Primary Care Provider + Encounter Details Date Type Department Care Team (Late Contact Info) Description 01/30/2025 Results Follow-Up [facility] Family & Internal Medicine [facility] [address] [place] [address] Daniel Pizano DO [address] [place], [place] [phone] THYROXINE, FREE (FT4), THYROID STIM HORMONE TSH Social History Tobacco Use Types Packs/Day Years Used Date Smoking Tobacco: Former Cigarettes 1 8 S tarted: 1955 Passive Smoke Exposure: Past Smokeless Tobacco: Never Comments:No counseling requi red Alcohol Use Standard Drinks/Week Comments Not Currently 0 (1 standard drink = 0.6 oz pure alcohol) occasionally he will have a beer or two. 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
--- OUTSIDE RECORDS SUMMARY | 2025-02-04 14:23 | XMS_ITS | Clinical Summary ---
Author Organization [facility] Address [address] [place] [address] Care Team Providers Care Change Booth Attendant Name Role Phone Daniel Pizano DO Primary Care Provider + Allergies No known active allergies Medications vitamin B-12 (CYANOCOBALAMIN) 1000 mcg tablet 1 tablet (1,000 mcg total). 04/08/20 15 Active atorvastatin 80 MG tabletIndications :Dyslipidemia Take 1 tablet (80 mg total) by mouth daily. 90 tablet 3 08/26/19 21 Active amiodarone (PACERONE) 200 MG tablet Take 1 tablet (200 mg total) by mouth daily. 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 Active Multiple Vitamin (MULTIVITAMIN ADULT OR) Active hydroCHLOROthiazi de (HYDRODIURIL) 25 MG tablet Take 1 tablet (25 mg total) by mouth every morning. 30 tablet 07/08/19 23 Active furosemide (LASIX) 40 MG tablet Take 1 tablet (40 mg total) by mouth daily. Active triamcinolone (KENALOG) 0.1 % cream 08/23/19 23 Active apixaban (ELIQUIS) 2.5 MG tablet Take 1 tablet (2.5 mg total) by mouth 2 (two) times daily. 11/17/19 24 Active mupirocin (BACTROBAN) 2 % ointment 07/31/19 25 Active ferrous sulfate, 65 mg elemental, 325 (65 FE) MG tablet Take 1 tablet (325 mg total) by mouth daily. Active irbesartan (AVAPRO) 150 MG tablet Take 1 tablet (150 mg total) by mouth daily. 12/13/19 25 Active levothyroxine (SYNTHROID) 88 MCG tabletIndications :Acquired hypothyroidism TAKE 1 TABLET BY MOUTH EVERY MORNING 90 tablet 1 01/28/20 25 Active omeprazole (PRILOSEC) 20 MG capsuleIndication s:Gastroesophagea l reflux disease, unspecified whether esophagitis present TAKE 1 CAPSULE BY MOUTH DAILY 90 capsule 1 01/28/20 25 Active gabapentin (NEURONTIN) 300 MG capsuleIndication s:CFS (chronic fatigue syndrome) TAKE 1 CAPSULE BY MOUTH TWICE DAILY 180 capsule 1 01/28/20 25 Active amoxicillin (AMOXIL) 500 MG capsule TAKE 4 CAPSULES BY MOUTH NOW FOR 1 DOSE 03/14/20 23 025 Discontinued(T herapy completed) losartan (COZAAR) 50 MG tablet Take 1 tablet (50 mg total) by mouth daily. 025 Discontinued(A lternate therapy) omeprazole (PRILOSEC) 20 MG capsuleIndication s:Gastroesophagea l reflux disease, unspecified whether esophagitis present TAKE 1 CAPSULE BY MOUTH DAILY 90 capsule 1 07/18/19 025 Discontinued gabapentin (NEURONTIN) 300 MG capsuleIndication s:CFS (chronic fatigue syndrome) TAKE 1 CAPSULE BY MOUTH TWICE DAILY 180 capsule 1 07/18/19 25 025 Discontinued levothyroxine (SYNTHROID) 88 MCG tabletIndications :Acquired hypothyroidism TAKE 1 TABLET BY MOUTH IN THE MORNING 90 tablet 1 07/18/19 025 Discontinued Active Problems Problem Noted Date Diagnosed Date CKD (chronic kidney disease) stage 4, GFR 15-29 ml/min ([facility]) 07/07/2022 Acquired hypothyroidism 06/10/2021 Medication side effects 06/10/2021 At risk for amiodarone toxicity with fci u se 09/09/2020 (HFpEF) heart failure with p reserved ejection fraction ([facility]) 07/09/2020 Benign prostatic hyperplasia without lower urinary tract symptoms 06/11/2020 Body mass index (BMI) of 28.0 to 28.9 in adult 0 06/11/2020 Cobalamin deficiency 06/11/2020 Glaucoma 06/11/2020 High aspartate aminotransferase level 06/11/2020 History of supraventricular tachycardia 06/11/19 21 Hypogonadism in male 06/11/2020 Peripheral neuropathy 06/11/2020 Prediabetes 06/11/2020 Renal failure 06/11/2020 Trapezius muscle spasm 06/11/2020 Umbilical hernia 06/11/2020 Vitamin D deficiency 06/11/2020 Essential hypertension 06/11/2020 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 04/03/2019 Encounter for monitoring sotalol therapy 018 Mild aortic valve stenosis 06/08/2017 History of cerebrovascular accident 11/03/2016 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 09/22/2016 Overview (08/04/2021): 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 CFS (chronic fatigue syndrome) 09/22/2016 Overview (12/23/2019): Chronic fatigue Dizziness and giddiness 09/22/2016 Overview (06/11/2020): Dizziness Ventricular premature beats 03/16/2016 Overview (12/23/2019): Frequent PVCs Chronic anticoagulation 12/21/2015 Overview (12/23/2019): Chronic anticoagulation Dyslipidemia 12/21/2015 Overview (12/23/2019): Dyslipidemia Dyslipidemia Shortness of breath 12/21/2015 Overview (06/11/2020): MCKEON (dyspnea on exertion) Labile essential hypertension 12/21/2015 Overview (12/23/2019): Labile essential hypertension Pulmonary hypertension ([facility]) 016 Overview (12/23/2019): Pulmonary HTN alf (current) use of anticoagulants 2015 Overview (08/04/2021): Chronic anticoagulation Pain in extremity 03/20/2014 Paroxysmal atrial fibrillation ([facility]) 09/14/2013 Overview (06/11/2020): ATRIAL FIBRILLATION ATRIAL FIBRILLATION Gastroesophageal reflux disease 09/14/2013 Overview (12/23/2019): ESOPHAGEAL REFLUX Dyslipidemia, goal LDL below 100 09/14/2013 Overview (06/11/2020): MIXED HYPERLIPIDEMIA Osteoarthrosis 11/29/2011 Resolved Problems Problem Noted Date Diagnosed Date Resolved Date Claudication 08/03/2022 12/22/2022 Legionnaires' disease ([facility]) 06/11/2020 05/05/2021 Encounters Date Type Department Care Team Description 01/30/2025 Results Follow-Up [address] [address] Daniel Pizano, DO THYROXINE, FREE (FT4), THYROID STIM HORMONE TSH 01/24/2025 9:40 AM CDT Laboratory Only [address] [address] Daniel Pizano, DO 01/24/2025 9:20 AM CDT Allied Health/Nurse Visit [address] [address] Daniel Pizano, DO Allied Health Visit 01/24/2025 Travel 01/22/2025 Scan HEALTH INFO SRVCS Scanned, [facility] Echo (SCAN) 01/22/2025 Telephone [place] [address] [place] [address] Daniel Pizano, DO Orders 01/21/[address] [address] Daniel Pizano, DO Lab Order 01/20/2025 9:00 AM CDT Office Visit [address] [address] Daniel Pizano, DO Hypertension; Hyperlipidemia; Hypothyroidism; Atrial Fibrillation; CKD Follow-up 01/20/[address] [address] Daniel Pizano, DO Question 01/20/2025 Travel 01/16/2025 Scan Jianjian SRVCS Scanned, [facility] 01/10/2025 9:30 AM CDT Office Visit [facility] Physical Therapy [facility] [address] [address] Daniel Pizano, Tiff Sterling, FOREST PATROLMAN Balance Problem 01/10/2025 Travel 01/07/2025 9:30 AM CDT Office Visit [facility] Physical Therapy [facility] [address] [address] Daniel Pizano, Tiff Sterling, FOREST PATROLMAN Balance Problem 01/07/2025 Travel 01/03/2025 8:45 AM CDT Office Visit [facility] Physical [place] [address] [address] Daniel Pizano, Chaz Esteban, PT Balance Problem 01/03/2025 Travel 12/31/2024 8:45 AM CDT Office Visit [facility] Physical Therapy [address] [place] [address] Daniel Pizano, Tiff Sterling, FOREST PATROLMAN Balance Problem 12/31/2024 Travel 12/27/2024 8:45 AM CDT Office Visit [facility] Physical Therapy [address] [facility] [address] [place] [address] Daniel Pizano, Nano Doyle, PT Balance Problem 12/27/2024 Travel 12/24/2024 8:45 AM CDT Office Visit [facility] Physical Therapy [address] [address] Daniel Pizano, Nano Doyle, PT Balance Problem 12/24/2024 Travel 12/20/2024 10:15 AM CDT Office Visit [facility] Physical Therapy [address] [facility] [address] [place] [address] Daniel Pizano, Nano Doyle, PT Balance Problem 12/20/2024 Travel 12/10/2024 9:30 AM CDT Office Visit [facility] Physical Therapy [address] [address] Daniel Pizano, Tiff Sterling, FOREST PATROLMAN Balance Problem 12/10/2024 Travel 12/06/2024 12:45 PM CDT Office Visit [facility] Physical Therapy [address] [facility] [address] [place] [address] Daniel Pizano, Nano Doyle, PT Balance Problem 12/06/2024 Travel 12/03/2024 12:45 PM CDT Office Visit [facility] Physical Therapy [address] [address] Daniel Pizano, Tiff Sterling S, FOREST PATROLMAN Balance Problem 12/03/2024 Travel 11/29/2024 9:30 AM CDT Office Visit [facility] Physical Therapy [address] [address] Daniel Pizano, DO Nicholas Carlosa S, FOREST PATROLMAN Balance Problem 11/29/2024 Travel 11/26/2024 2:15 PM CDT Office Visit [facility] Physical Therapy [address] [address] Daniel Pizano, Tiff Sterling S, FOREST PATROLMAN Balance Problem 11/26/2024 Travel 11/21/2024 Scan VoltServer INFO SRVCS Scanned, [facility] 11/18/2024 3:00 PM CDT Office Visit [facility] Physical Therapy [address] [address] Daniel Pizano, Tiff Sterling S, FOREST PATROLMAN Balance Problem 11/18/2024 Travel 11/15/2024 10:30 AM CDT Office Visit [facility] Physical Therapy [address] [address] Daniel Pizano, DO Chaz Bird, PT Balance Problem 11/15/2024 Travel 11/12/2024 9:30 AM CDT Office Visit [facility] Physical Therapy [address] [address] Daniel Pizano, Tiff Sterling S, FOREST PATROLMAN Balance Problem 11/12/2024 Travel 11/08/2024 9:45 AM CDT Office Visit [facility] Physical Therapy [address] [address] Nano Newell, PT Luchtefeld, Daniel P, DO Balance Problem 11/08/2024 Travel from Last 3 Months Immunizations Immunization Administration Dates Next Due Arexvy Respiratory Syncytial Virus (RSV, adjuvanted) 0.5 mL, PF 04/14/2023 Fluzone High Dose (IIV, triv alent, 0.5mL) 02/15/2024 Fluzone High Dose - >Age 65 (Prefilled Syringe) 02/02/2023,01/27/2022,01/19/2021,2017,02/27/2017,02/14/2016,02/15/2015,1 Fluzone Intradermal Quad (IIV4) 01/29/2019 Influenza (FluMist) 01/29/2019 Influenza (Generic) 01/13/2021, 9,02/18/2013,2007 Influenza Adult (Generic) 02/02/2023,,12/28/2019,2018,01/30/2018,02/27/2017,02/14/2016,1 ,01/30/2014,02/18/2013 MODERNA COVID-19 BIVALENT (1 2+), MRNA, LNP-S, PF 01/27/2022 MODERNA COVID-19 (12+) MRNA, LNP-S, PF, 100 MCG/ 0.5 ML DOSE 01/27/2022,02/20/2021,07/11/2020,2020 MODERNA COVID-19 (12+), MRNA , LNP-S, PF, 50 MCG/0.5 ML (SPIKEVAX) 02/15/2024 MODERNA COVID-19 (E COMMERCE ANALYST SANTHOSH CIERA), MRNA, LNP-S, PF, 50 MCG/ 0.25 ML DOSE 10/14/2021 Pneumococcal (Pneumovax 23) 11/21/2016 Pneumococcal (Prevnar 13) 02/14/2018 Shingrix 02/26/2020,12/28/2019 Td 05/25/2011 Td (Generic) 05/25/2011 Td (Tenivac) preservative free 05/25/2011 Tdap (Generic) 10/31/2014 Family History Medical History Relation Comments Cancer Daughter Heart Disease Father Stroke Father Breast Cancer Mother Stroke Mother Early Paternal Uncle Breast Cancer Sister melanoma Son Relation Status Comments Daughter Alive Father Maternal Grandfather Maternal Grandmother Mother Paternal Grandfather Paternal Grandmother Paternal Uncle Sister Alive Son Alive Social History Tobacco Use Types Packs/Day Years Used Date Smoking Tobacco: Former Cigarettes 1 8 S tarted: 1955 Passive Smoke Exposure: Past Smokeless Tobacco: Never Tobacco Cessation:Counseling Given: Yes Comments:No counseling required Alcohol Use Standard Drinks/Week Comments Not Currently [...] AM CDT Sexual Orientation Not on file Last Filed Vital Signs Vital Sign Reading Time Taken Comments Blood Pressure 124/80 01/24/2025 9:28 AM CDT Pt's home BP cuff Pulse 70 01/20/2025 9:07 AM CDT Temperature 36.3 C (97.4 F) 01/20/2025 9:07 AM CDT Respiratory Rate 18 01/20/2025 9:07 AM CDT Oxygen Saturation 98% 01/20/2025 9:0 7 AM CDT Inhaled Oxygen Concentration - - Weight 83.6 kg (184 lb 3.2 oz) 01/20/2025 9:07 AM CDT Height 175.3 cm (5' 9) 01/20/2025 9:07 AM CDT Body Mass Index 27.2 01/20/2025 9:07 AM CDT Plan of Treatment Upcoming Encounters Date Type Department Care Team (Late st Contact Info) Description 05/06/2025 8:20 AM SCOOP DRIVER Office Visit [facility] Family & Internal Medicine - [address] [address] Daniel Pizano DO [address] [place] [address] Health Maintenance Due Date Last Done Comments ASCVD Statin 1935 Annual Medicare Wellness Visit 2002 DTaP, Tdap and Td Vaccines (2 - Td or Tdap) 10/31/2024 10/31/2014, 05/25/2011, 05/25/2011, Additional history exists COVID-19 Vaccine ( season) 2024 02/15/2024, 04/14/2023, 01/27/2022, Additional history exists Influenza Adult (#1) 2025 02/15/2024, 02/02/2023, 02/02/2023, Additional history exists Pneumococcal Vaccine: 50+ Years Completed 02/14/2018, 11/21/2016 Zoster Vaccines Completed 02/26/2020, 12/28/2019 RSV Immunization or 60+ Years Completed 04/14/2023 PHQ-2 (Physician [place]) Completed 07/16/2024 Meningococcal B Vaccine Aged Out No l onger eligible based on patient's age to complete this topic Meningococcal Vaccine Aged Out No lalo janice eligible based on patient's age to complete this topic RSV Immunizations Under 20 Months Aged Out No longer eligible based on patient's age to complete this topic Procedures Procedure Name Priority Date/Time Associated Diagnosis Comments COLLECTION VENOUS BLOOD VENIPUNCTURE Routine 01/24/2025 9:47 AM CDT Acquired hypothyroidism THYROID STIM HORMONE TSH Routine 01/24/2025 9:46 AM CDT Acquired hypothyroidism THYROXINE, FREE (FT4) Routine 01/24/2025 9:46 AM CDT Acquired hypothyroidism ECHO GENERIC (SCAN ORDER) 01/22/2025 COLLECTION VENOUS BLOOD VENIPUNCTURE Routine 01/20/2025 9:29 AM CDT Acquired hypothyroidism from Last 3 Months Results * THYROXINE, FREE (FT4) (01/24/2025 9:46 AM CDT) FREE T4 1.35 0.76 - 1.46 NG/DL 01/24/2025 4:37 PM CDT [facility] 01/24/2025 9:46 AM CDT Daniel Pizano DO LABORATORY Final Re sult Performing Organization Address [facility] Co de Phone Number [facility] [address] [place] [address], * (ABNORMAL) THYROID STIM HORMONE TSH (01/24/2025 9:46 AM CDT) TSH 5.799(H) 0.358 - 3.740 uIU/ML 01/24/2025 4:37 PM CDT [facility] 01/24/2025 9:46 AM CDT Daniel Chante Ortegaluisflex DO LABORATORY Final Re sult Performing Organization Address [facility] de Phone Number [address] [address], * ECHO GENERIC (SCAN ORDER) (01/22/2025) Anatomical Region Laterality Modality Other 01/22/2025 [facility] Scanned SCANNING Final Resu lt from Last 3 [place] [address] [place] [phone] [facility] Care Teams Change Booth Attendant Relationship Specialty Start Date End Date Daniel Pizano DO [address] [place] [address] PCP - General FAMILY PRACTICE 11/28/19
--- OUTSIDE RECORDS SUMMARY | 2025-02-04 14:23 | XMS_ITS | Encounter Summary ---
Author Organization [facility] Address [address] [place] [address] [place] [address] Care Team Providers Care Government Relations Director Name Role Phone Unavailable Primary Care Provider Unavailabl e Encounter Details Date Type Department Care Team (Late st Contact Info) Description 05/15/2024 Lab Requisition [facility] - DermPath Lab [address] [facility], [place] [address] Caryn Su MD [address] [facility] [address] [place] [address] Social History Tobacco Use Types Packs/Day Years Used Date Smoking Tobacco: Never Assessed Sex and Gender Information Value Date Recorded Sex Assigned at Not on file Legal Sex Male 6:32 PM LIVE AMMUNITION INSPECTOR Gender Identity Not on file Sexual Orientation Not on file documented as of this encounter Plan of Treatment Not on file documented as of this encounter Procedures Procedure Name Priority Date/Time Associated Diagnosis Comments DERMATOPATHOLOGY Routine 05/15/2024 8:29 AM LIVE AMMUNITION INSPECTOR documented in this encounter Results * DERMATOPATHOLOGY (05/15/2024 8:29 AM LIVE AMMUNITION INSPECTOR) Case Report Dermatopathology Report Case: [id number] Authorizing Provider: Caryn Su MD Collected: 05/15/2024 08:29 AM Ordering Location: [facility] Physician [facility] - Received: 05/15/2024 01:41 PM DermPath Lab Pathologist: Nelida Woodruff MD Specimen: Skin, left calf 5 4:11 PM LIVE AMMUNITION INSPECTOR DERMATOPATHOLOGY LABORATORY Final Diagnosis Specimen A. 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 The specimen consists of a shave biopsy measuring [id number] mm. Jar 0. 4:11 PM [facility] DERMATOPATHOLOGY LABORATORY Microscopic Description Specimen A. SKIN, left calf: Arising in the epidermis and extending into the dermis there are irregularly shaped aggregates of keratinocytes showing evidence of premature cornification. 4:11 PM [facility] DERMATOPATHOLOGY LABORATORY Disclaimer An external and internal positive and negative controls are appropriate for the histochemical, immunohistochemical and immunofluorescence stain(s) in this case (if any), except where stated explicitly. The performance characteristics of the stain(s) cited in this report were developed and its performance characteristic determined by the Dermatopathology Laboratory at [facility], directed by Dr. Fariba Echols. These tests need not be, and therefore are not, approved by the [place] Food and Drug Administration. The tests are used for clinical purposes. Billing Codes Specimen Charges Stain Charges 809[address] 1 4:11 PM [facility] DERMATOPATHOLOGY LABORATORY Embedded Images 4:11 PM [facility] DERMATOPATHOLOGY LABORATORY Pathology/Cytolo gy TISSUE SPECIMEN FROM SKIN / Unknown 05/15/2024 8:29 AM LIVE AMMUNITION INSPECTOR 05/15/2024 1:41 PM LIVE AMMUNITION INSPECTOR Caryn Su MD LAB - PATHOLOGY/CYTOLOGY OR DERABLES Final Result DERMATOPATHOLOGY LABORATORY [facility] - Department of Dermatology [address] [place] [address], [facility] [phone] documented in this encounter Visit Diagnoses Not on filedocumented in this encounter
--- OUTSIDE RECORDS SUMMARY | 2025-02-04 14:23 | XMS_ITS | Encounter Summary ---
Author Organization [facility] Address [address] [facility] [address] [place] [address] Care Team Providers Care Button Pusher Name Role Phone William Oneal Primary Care Provider [phone] Geoff Meadows MD Unavailable [phone] Castro Loza MD Primary Care Provider Daniel Pizano DO Primary Care Provide r Encounter Details Date Type Department Care Team (Late st Contact Info) Description 09/22/2016 Orders Only [facility] ProviderKylie MD [address] [place] [address] Social History Tobacco Use Types Packs/Day Years Used Date Smoking Tobacco: Former Alcohol Use Standard Drinks/Week Comments Yes 0 (1 standard drink = 0.6 oz pur e alcohol) Sex and Gender Information Value Date Recorded Sex Assigned at Not on file Legal Sex Male 7:53 PM HOSPITALITY 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 Historical Provider [facility] EPI IZAGUIRRE Final Result documented in this encounter Visit Diagnoses Not on filedocumented in this encounter Care Teams Button Pusher Relationship Specialty Start Date End Date William OnealJoey [address] [place] [address] PCP - General 12/12/07 08/17/17 Castro Loza MD [address] [place] [address] PCP - General Family Practice 08/18/17 02/12/20 Daniel Pizano DO [address] [place] [address] PCP - General Family Medicine 02/13/20 Geoff Meadows MD [address] [place] [address] [facility] 09/28/16 08/17/17 documented as of this encounter
--- OUTSIDE RECORDS SUMMARY | 2025-02-04 14:23 | XMS_ITS | Clinical Summary ---
Author Organization [facility] [address] Address [address] [place] [address] Care Team Providers Care Photography Instructor Name Role Phone Beverly Morejonchary Vickey Primary Care Provide r Allergies No known active allergies Medications omeprazole (PriLOSEC) 20 mg capsule take 1 capsule (20MG) by oral route every day before a meal 0 06/15/19 13 Active gabapentin (NEURONTIN) 300 mg capsule Take 1 capsule (300 mg total) by mouth 2 (two) times a day Active [id number] -Lmfolate-algal 27 mg iron-1.13 mg-581.92 mg capsule Take by mouth Active cyanocobalamin (Vitamin B-12) 100 mcg tabletIndicatio ns:Prevention of Vitamin B12 Deficiency Take 1 tablet (100 mcg total) by mouth daily Active acetaminophen (ARTHRITIS PAIN RELIEF, ACETAM, ORAL) Take 650 mg by mouth Active hydroCHLOROthia zide (HYDRODIURIL) 25 mg tablet Take 1 tablet (25 mg total) by mouth daily 05/01/19 24 Active furosemide (LASIX) 40 mg tablet Take 1 tablet (40 mg total) by mouth daily Active Eliquis 2.5 mg tablet TAKE 1 TABLET BY MOUTH TWICE DAILY 180 tablet 3 07/18/19 25 Active irbesartan (AVAPRO) 150 mg tablet Take 1 tablet (150 mg total) by mouth daily 12/13/19 25 Active levothyroxine (SYNTHROID) 88 mcg tablet Take 1 tablet (88 mcg total) 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 11/27/19 25 Active ferrous sulfate 325 mg (65 mg of elemental iron) tabletIndicatio ns:Iron Deficiency Anemia Take 1 tablet (325 mg total) by mouth daily with breakfast Active amiodarone (PACERONE) 200 mg tabletIndicatio ns:Atrial fibrillation, unspecified type (HCC) Take 1 tablet (200 mg total) by mouth every other day 12/18/19 Active atorvastatin (LIPITOR) 80 mg tablet TAKE 1 TABLET BY MOUTH DAILY 90 tablet 01/28/20 25 Active isosorbide mononitrate ER (IMDUR) 30 mg 24 hr tablet TAKE 1 TABLET BY MOUTH DAILY 90 tablet 01/28/20 25 Active isosorbide mononitrate ER (IMDUR) 30 mg 24 hr tablet Take 1 tablet (30 mg total) by mouth daily 90 tablet 3 02/16/20 24 025 Discontinued atorvastatin (LIPITOR) 80 mg tablet Take 1 tablet (80 mg total) by mouth daily 90 tablet 2 05/02/19 25 025 Discontinued Active Problems Problem Noted Date Diagnosed Date Stage 4 chronic kidney disease 03/21/2023 Claudication 08/03/2022 Acquired hypothyroidism 06/10/2021 Medication side effects 06/10/2021 At risk for amiodarone toxicity with buttermaker continuous churn u se 09/09/2020 Chronic heart failure with p reserved ejection fraction (CMS/HCC) 07/09/2020 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 04/03/2019 Bradycardia 08/23/2017 H/O: CVA (cerebrovascular accident) 11/03/2016 Abnormal nuclear stress test 11/03/2016 Coronary artery disease invo lving [place] coronary artery of [place] heart without angina pectoris 09/22/2016 Overview (09/30/2016): Coronary artery disease of [place] artery of [place] heart with stable angina pectoris Dizziness 09/22/2016 Overview (09/30/2016): Dizziness CFS (chronic fatigue syndrome) 09/22/2016 Overview (09/30/2016): Chronic fatigue Ventricular premature beats 03/16/2016 Overview (08/05/2016): Frequent PVCs Benign hypertension 12/21/2015 Overview (08/05/2016): HTN (hypertension), benign Dyspnea on exertion 12/21/2015 Overview (08/05/2016): MCKEON (dyspnea on exertion) Labile essential hypertension 12/21/2015 Overview (08/05/2016): Labile essential hypertension Chronic anticoagulation 12/21/2015 Overview (08/05/2016): Chronic anticoagulation Stage 3 chronic kidney disease 12/21/2015 Overview (08/05/2016): CKD (chronic kidney disease) stage 3, GFR 30-59 ml/min Chest pain 12/21/2015 Overview (08/05/2016): Chronic chest pain Pulmonary hypertension 12/21/2015 Overview (08/05/2016): Pulmonary HTN Pain in extremity 03/20/2014 Swelling of extremity 03/20/2014 Gastroesophageal reflux disease 09/14/2013 Overview (08/03/2016): ESOPHAGEAL REFLUX Atrial fibrillation 09/14/2013 Overview (08/05/2016): ATRIAL FIBRILLATION Multiple-type hyperlipidemia 09/14/2013 Overview (08/05/2016): MIXED HYPERLIPIDEMIA Osteoarthritis of knee 11/29/2011 Resolved Problems Problem Noted Date Diagnosed Date Resolved Date Encounter for monitoring sotalol therapy 09/14/2017 07/28/2020 Dyslipidemia 12/21/2015 06/10/2021 Overview (08/05/2016): Dyslipidemia Encounters Date Type Department Care Team Description 01/22/2025 1:00 PM CDT Ancillary Procedure [facility] Medical [facility] Cardiology [address] [place] [address] Multiple falls; Near syncope 2024 10:00 AM CDT Office Visit [facility] Cardiology [address] [place] [address] Gerda Lyn NP Atrial fibrillation, unspecified type (HCC) (Primary Dx); At risk for amiodarone toxicity with buttermaker continuous churn use; Ataxia; Chronic anticoagulation; Labile essential hypertension; Stage 4 chronic kidney disease (HCC); Coronary artery disease involving [place] coronary artery of [place] heart without angina pectoris from Last 3 Months Immunizations Immunization Administration Dates Next Due Influenza, Trivalent, IM (MDV) 03/12/2008 Surgical History Surgery Date Site/Laterality Comments OTHER SURGICAL HISTORY SVT: ablation KNEE ARTHROPLASTY 2006 Knee replacement OTHER SURGICAL HISTORY minimal atherosclerotic coronary artery disease: KNEE ARTHROPLASTY right knee replacement SHOULDER SURGERY right shoulder surgery Medical History Medical History Date Comments Glaucoma Glaucoma Hx Other Medical Sciatica Hx Other Medical SVT Atrial fibrillation (HCC) atrial fibrillation Hx Other Medical minimal atheros clerotic coronary artery disease Hx Other Medical microvascular d isease Hx Other Medical history cerebel lar CVA Hx Other Medical dyslipidemia Hypertension Hypertension Osteoarthritis osteoarthritis Gastroesophageal reflux disease GERD Family History Medical History Relation Name Comments Other Father 2 Pacemaker; Hypertension Mother 2 Hypertension; Relation Name Status Comments Father 1 Alive Father 2 Mother 1 Alive Mother 2 Social History Tobacco Use Types Packs/Day Years Used Date Smoking Tobacco: Former Smokeless Tobacco: Never Tobacco Cessation:Counseling Given: Not Answered Alcohol Use Standard Drinks/Week Comments Yes 0 (1 standard drink = 0.6 oz pur e alcohol) Sex and Gender Information Value Date Recorded Sex Assigned at Not on file Legal Sex Male 7:53 PM [employer] Gender Identity Not on file Sexual Orientation Not on file Obstetrics History Last Filed Vital Signs Vital Sign Reading Time Taken Comments Blood Pressure 130/78 2024 9:40 AM CDT Pulse 61 2024 9:40 AM CDT Temperature 36.5 C (97.7 F) 03/05/2020 10:19 AM [employer] Respiratory Rate 16 09/29/2021 2:54 PM CDT Oxygen Saturation 97% 2024 9:40 AM CDT Inhaled Oxygen Concentration - - Weight 83.9 kg (185 lb) 2024 9:40 AM CDT Height 175.3 cm (5' 9) 2024 9:40 AM CDT Body Mass Index 27.32 2024 9:40 AM CDT Plan of Treatment Health Maintenance Due Date Last Done Comments Depression Screening 1935 Fall Risk Assessment 1935 Hepatitis B Screening 12/18/1953 Well Visit 65+ 2002 DTaP/Tdap/Td Vaccine (2 - Td or Tdap) 10/31/2024 10/31/2014, 05/25/2011, 05/25/2011 Covid-19 Vaccine (6 - 2024-2 6 season) 2024 01/27/2022, 10/14/2021, 02/20/2021, Additional history exists Influenza Vaccine (#1) 2024 , 02/02/2023, 01/27/2022, Additional history exists Pneumococcal vaccine 65+ Completed 02/13/2018, 10/30 Zoster Vaccine Completed 02/26/2020, 12/28/2019 Procedures Procedure Name Priority Date/Time Associated Diagnosis Comments TRANSTHORACIC ECHO (TTE) COMPLETE W DOPPLER/CF WO CONTRAST Routine 01/22/2025 1:41 PM CDT Multiple falls Near syncope ECG 12-LEAD Routine 2024 9:46 AM CDT Atrial fibrillation, unspecified type (HCC) from Last 3 Months Results * TRANSTHORACIC ECHO (TTE) COMPLETE W DOPPLER/CF WO CONTRAST (01/22/2025 1:41 PM CDT) EF Mod BP 60 % CONS SCIMAGE Anatomical Region Laterality Modality Ultrasound 01/22/2025 12:5 4 PM CDT Narrative 01/22/2025 4:10 PM CDT [facility] Medical [facility] Cardiology [address], [place] [address] [address] [facility] [address], [place] [address] P:[phone] P:[phone] Echocardiographic Report Patient Name: BILLY ARSHAD E : 1935 Study Date: 01/22/2025 12:54:08 PM Sex: M Rate Reviewer: Roya Reina)(CT), [facility] Location: [place] Ref Provider: YOUSIF MOREJON Height(Cm): 175 BSA: 2.02 Weight(Kg): 83.9 Heart Rate: 76 BP: 130 / 78 Quality: Good Order Provider: YOUSIF MOREJON PROCEDURES: Echocardiographic Report: Transthoracic echocardiogram with complete 2D, M-Mode, and color Doppler examination. With Strain Analysis. Definity/Optison could not be used due to: unable to obtain IV access. INDICATIONS: R29.6 Repeated falls and R55 Syncope and collapse. MEASUREMENTS: 2D/MM Value Range Doppler Value Range EF Mod BP 60 % [ 52 - 72 ] ISAAC Vmax 1.14 cm2 [ 2.00 - 4.00 ] LV GLS -8.95 % AV Mean PG 19 mmHg LVIDd 2D 4.62 cm [ 4.20 - 5.80 ] AV Peak Garcia 2.81 m/s [ 1.00 - 1.70 ] LVIDs 2D 3.26 cm [ 2.50 - 4.00 ] AV Peak PG 32 mmHg LVPWd 2D 1.05 cm [ 0.60 - 1.00 ] AV VTI 57.90 cm IVSd 2D 1.16 cm [ 0.60 - 1.00 ] LVOT Diam 2.04 cm [ 1.70 - 2.10 ] AoR Diam 2D 3.20 cm [ 3.10 - 3.70 ] LVOT Peak Garcia 0.98 m/s [ 0.70 - 1.10 ] LA Volume 90.71 ml [ 18.00 - 58.00 ] LVOT VTI 18.66 cm LA Volume Index 45 cc/m2 [ 16 - 28 ] MV E Peak Garcia 1.28 m/s [ 0.60 - 1.30 ] RA Volume 50.94 ml MV A Peak Garcia 0.45 m/s [ 1.00 - 1.20 ] MV Decel Time 154 msec [ 104 - 258 ] PV Peak Garcia 0.97 m/s [ 0.40 - 0.80 ] TR Peak Garcia 2.63 m/s [ 1.00 - 2.80 ] TR Peak PG 28 mmHg RVSP 33.00 mmHg [ 10.00 - 36.00 ] RV S` 10.19 mmHg Lateral E` 0.09 m/s [ 0.10 - 0.15 ] Septal E` 0.04 m/s [ 0.08 - 0.15 ] E` 0.07 m/s E/E` 19 Tapse 2.05 cm [ 1.71 - 5.00 ] 2D/MM Value Range Doppler Value Range - FINDINGS: Interpretation Site: Exam was interpreted at home. Left Ventricle: Normal left ventricular size. Moderate concentric left ventricular hypertrophy. Normal global left ventricular systolic function. Diastolic dysfunction is present. Increased left heart filling pressures based on elevated E/E`. Ejection fraction is measured at 60 %. Global Longitudinal Strain is -9 %. These segments of the LV are hypokinetic: anterior segment. Right Ventricle: Normal right ventricular size. Normal right ventricular systolic function. Left Atrium: There is moderate enlargement of left atrium. Right Atrium: The right atrium is normal in size. Atrial Septum: Normal atrial septum. Mitral Valve: Moderate mitral annular calcification. Mild mitral valve regurgitation. Aortic Valve: Moderate to severe aortic stenosis. Peak Velocity of 2.80 m/s. Mean gradient of 19.0 mmHg. Valve area of 1 cm2. Aortic cusps appear severely calcified. Tricuspid Valve: Normal appearance of the tricuspid valve. Estimated peak RVSP is 33 mmHg. Mild tricuspid regurgitation. Pulmonic Valve: Normal appearance of the pulmonic valve. Mild pulmonic regurgitation. Pericardium: Normal pericardium with no significant pericardial effusion. Aorta: Moderate aortic root calcification. IVC: Normal size and normal respiratory collapse consistent with normal right atrial pressure (<5 mmHg). CONCLUSIONS: Normal left ventricular size. Moderate concentric left ventricular hypertrophy. Normal global left ventricular systolic function. Diastolic dysfunction is present. Increased left heart filling pressures based on elevated E/E`. Ejection fraction is measured at 60 %. Global Longitudinal Strain is -9 %. Anterior segment appears mildly hypokinetic. Normal right ventricular size and systolic function. Moderate enlargement of left atrium. Moderate mitral annular calcification. Mild mitral valve regurgitation. Inadequate Doppler to check transmitral gradients. Aortic valve appear calcified and restricted. Moderate to severe aortic stenosis with relatively lower mean gradient. Peak Velocity of 2.80 m/s. Mean gradient of 19.0 mmHg. Valve area of 1 cm2. Estimated RVSP 33 mmHg. Mild tricuspid and pulmonic regurgitation. Aortic root calcification. Electronically Signed By: Nir Velázquez MD, [facility] 01/22/2025 4:10:18 PM CDT Procedure Note Nir Velázquez MD - 01/22/2025 [facility] Medical Group Cardiology [address] [facility] [address], [place] [address] [address] [facility] [id number], [place] [address] P:[phone] P:[phone] Echocardiographic Report Patient Name: BILLY ARSHAD E : 1935 Study Date: 01/22/2025 12:54:08 PM Sex: M Rate Reviewer: Roya Patterson (R)(CT), [facility] Location: [facility] Provider: YOUSIF MOREJON Height(Cm): 175 BSA: 2.02 Weight(Kg): 83.9 Heart Rate: 76 BP: 130 / 78 Quality: Good Order Provider: YOUSIF MOREJON PROCEDURES: Echocardiographic Report: Transthoracic echocardiogram with complete 2D, M-Mode, and color Dopplerexamination. With Strain Analysis. Definity/Optison could not be used due to: unable toobtain IV access. INDICATIONS: R29.6 Repeated falls and R55 Syncope and collapse. MEASUREMENTS: 2D/MM Value Range Doppler ValueRange EF Mod BP 60 % [ 52 - 72 ] ISAAC Vmax 1.14cm2 [ 2.00 - 4.00 ] LV GLS -8.95 % AV Mean PG 19mmHg LVIDd 2D 4.62 cm [ 4.20 - 5.80 ] AV Peak Garcia 2.81m/s [ 1.00 - 1.70 ] LVIDs 2D 3.26 cm [ 2.50 - 4.00 ] AV Peak PG 32mmHg LVPWd 2D 1.05 cm [ 0.60 - 1.00 ] AV VTI 57.90cm IVSd 2D 1.16 cm [ 0.60 - 1.00 ] LVOT Diam 2.04cm [ 1.70 - 2.10 ] AoR Diam 2D 3.20 cm [ 3.10 - 3.70 ] LVOT Peak Garcia 0.98m/s [ 0.70 - 1.10 ] LA Volume 90.71 ml [ 18.00 - 58.00 ] LVOT VTI 18.66cm LA Volume Index 45 cc/m2 [ 16 - 28 ] MV E Peak Garcia 1.28m/s [ 0.60 - 1.30 ] RA Volume 50.94 ml MV A Peak Garcia 0.45m/s [ 1.00 - 1.20 ] MV Decel Time 154 msec [ 104 - 258 ] PV Peak Garcia 0.97 m/s [ 0.40 - 0.80 ] TR Peak Garcia 2.63 m/s [ 1.00 - 2.80 ] TR Peak PG 28 mmHg RVSP 33.00 mmHg [ 10.00 - 36.00 ] RV S` 10.19 mmHg Lateral E` 0.09 m/s [ 0.10 - 0.15 ] Septal E` 0.04 m/s [ 0.08 - 0.15 ] E` 0.07 m/s E/E` 19 Tapse 2.05 cm [ 1.71 - 5.00 ] 2D/MM Value Range Doppler ValueRange - FINDINGS: Interpretation Site: Exam was interpreted at home. Left Ventricle: Normal left ventricular size. Moderate concentric left ventricularhypertrophy. Normal global left ventricular systolic function. Diastolic dysfunction ispresent. Increased left heart filling pressures based on elevated E/E`. Ejection fraction ismeasured at 60 %. Global Longitudinal Strain is -9 %. These segments of the LV arehypokinetic: anterior segment. Right Ventricle: Normal right ventricular size. Normal right ventricular systolicfunction. Left Atrium: There is moderate enlargement of left atrium. Right Atrium: The right atrium is normal in size. Atrial Septum: Normal atrial septum. Mitral Valve: Moderate mitral annular calcification. Mild mitral valve regurgitation. Aortic Valve: Moderate to severe aortic stenosis. Peak Velocity of 2.80 m/s. Meangradient of 19.0 mmHg. Valve area of 1 cm2. Aortic cusps appear severely calcified. Tricuspid Valve: Normal appearance of the tricuspid valve. Estimated peak RVSP is 33 mmHg.Mild tricuspid regurgitation. Pulmonic Valve: Normal appearance of the pulmonic valve. Mild pulmonic regurgitation. Pericardium: Normal pericardium with no significant pericardial effusion. Aorta: Moderate aortic root calcification. IVC: Normal size and normal respiratory collapse consistent with normal rightatrial pressure (<5 mmHg). CONCLUSIONS: Normal left ventricular size. Moderate concentric left ventricularhypertrophy. Normal global left ventricular systolic function. Diastolic dysfunction ispresent. Increased left heart filling pressures based on elevated E/E`. Ejection fraction ismeasured at 60 %. Global Longitudinal Strain is -9 %. Anterior segment appears mildlyhypokinetic. Normal right ventricular size and systolic function. Moderate enlargement of left atrium. Moderate mitral annular calcification. Mild mitral valve regurgitation.Inadequate Doppler to check transmitral gradients. Aortic valve appear calcified and restricted. Moderate to severe aorticstenosis with relatively lower mean gradient. Peak Velocity of 2.80 m/s. Mean gradientof 19.0 mmHg. Valve area of 1 cm2. Estimated RVSP 33 mmHg. Mild tricuspid and pulmonic regurgitation. Aortic root calcification. Electronically Signed By: Nir Velázquez MD, [facility] 01/22/2025 4:10:18 PM CDT Yousif Morejon DO CV ECHO PROCEDURES Fi nal Result * ECG 12 lead (2024 9:46 AM CDT) Gerda Lyn NP ECG ORDERABLES Edited Re sult - Final from Last 3 Months Insurance MEDICARE MEDICARE [facility] MEDICARE SUPPLEMENT Care Teams Photography Instructor Relationship Specialty Start Date End Date Yousif Morejon DO [address] [place] [id number] PCP - General Family Medicine 02/13/20
--- OUTSIDE RECORDS SUMMARY | 2025-02-04 14:23 | XMS_ITS | Clinical Summary ---
Author Organization [facility] Address [address] [place] [id number] Phone Care Team Providers Care Brand Executive Name Role Phone Daniel Pizano Primary Care Provider + Allergies No known active allergies Medications atorvastatin (LIPITOR) 80 MG tablet 0 Active cholecalciferol (VITAMIN D-3) 50 MCG (1999) capsule Take one capsule by mouth daily. 7 Active Cobalamin Combinations (B-12) 1000-400 MCG sublingual tablet Take one tablet by mouth one time daily. 7 Active gabapentin (NEURONTIN) 300 MG capsule 0 Active isosorbide mononitrate (IMDUR) 30 MG 24 hr tablet 0 Active omeprazole (PriLOSEC) [address] capsule 0 Active furosemide (LASIX) 20 MG tablet 1 Active doxazosin (CARDURA) 2 MG tablet 2 Active hydroCHLOROthiazi de (HYDRODIURIL) 25 MG tablet Take 1 tablet (25 mg total) by mouth 1 (one) time each day 90 tablet 3 2 Active Eliquis 2.5 MG tablet 2 Active amiodarone (PACERONE) 200 MG tablet 2 Active levothyroxine (SYNTHROID) 75 MCG tablet 2 Active amLODIPine (NORVASC) 5 MG tablet Take 5 mg by mouth 1 (one) time each day Active losartan (COZAAR) 100 MG tablet Take 1 tablet (100 mg total) by mouth 1 (one) time each day 90 tablet 3 2 Active Active Problems Problem Noted Date Diagnosed Date Acquired hypothyroidism 06/10/2021 Acute on chronic heart failu re co-occurrent with normal ejection fraction 07/09/2020 Heart failure with normal ejection fraction 06/29 History of supraventricular tachycardia 06/11/19 21 Prediabetes 06/11/2020 Atherosclerotic heart diseas e of [place] coronary artery without angina pectoris 07/12/2019 Nonrheumatic aortic valve stenosis 06/08/2017 Stage 3b chronic kidney disease 12/21/2015 Overview (07/12/2019): CKD (chronic kidney disease) stage 3, GFR 30-59 ml/min Dyslipidemia 12/21/2015 Overview (07/12/2019): Dyslipidemia Benign hypertension 12/21/2015 Overview (08/13/2020): HTN (hypertension), benign Long-term current use of anticoagulant 6 Overview (08/13/2020): Chronic anticoagulation Atrial fibrillation 09/14/2013 Overview (07/12/2019): ATRIAL FIBRILLATION Gastroesophageal reflux disease 09/14/2013 Overview (08/13/2020): ESOPHAGEAL REFLUX Immunizations Immunization Administration Dates Next Due Influenza LAIV (Nasal) 01/29/2019 Influenza Split High Dose Pr eservative Free IM 01/19/2021,01/30/2018,02/27/2017,02/13,02/15/2015,01/30/2014 Influenza TIV (IM) 01/13/2021,12/28/2019, 008 Influenza, Quadrivalent 01/29/2019 Influenza, Unspecified 01/27/2022,2020,12/28/2019,01/29,01/28/2019,01/30/2018,02/27/2017 ,02/14/2016,02/15/2015,01/30/2014,01/30,03/12/2008 Moderna Sars-cov-2 Vaccination 01/27/2022,2020,06/13/2020 Pneumococcal Conjugate 13-Valent 02/14/2018 Pneumococcal Polysaccharide 11/21/2016 TD Preservative Free 05/25/2011 Td 05/25/2011 Zoster Recombinant 02/26/2020,12/28/2019 Family History Medical History Relation Comments Kidney disease Neg Hx Social History Tobacco Use Types Packs/Day Years Used Date Smoking Tobacco: Former Smokeless Tobacco: Never Alcohol Use Standard Drinks/Week Comments Yes 0 (1 standard drink = 0.6 oz pur e alcohol) rare Sex and Gender Information Value Date Recorded Sex Assigned at Not on file Legal Sex Male 12:58 PM MST Gender Identity Not on file Sexual Orientation Not on file Last Filed Vital Signs Vital Sign Reading Time Taken Comments Blood Pressure 156/70 03/02/2022 3:26 PM CDT Pulse 60 03/02/2022 3:26 PM CDT Temperature 36.7 C (98.1 F) 03/02/2022 3:26 PM CDT Respiratory Rate - - Oxygen Saturation - - Inhaled Oxygen Concentration - - Weight 88 kg (194 lb) 03/02/2022 3:26 PM CDT Height 175.3 cm (5' 9) 03/02/2022 3:26 PM CDT Body Mass Index 28.65 03/02/2022 3:26 PM CDT Plan of Treatment Health Maintenance Due Date Last Done Comments COVID-19 Vaccine (2024-2 6 season) 2024 01/27/2022, 07/11/2020, 06/13/2020 Influenza Vaccine (#1) 2024 2, 01/13/2021, 01/13/2021, Additional history exists Pneumococcal PPSV23/PCV13 65 + Years / Low and Medium Risk Completed 02/14/2018, 11/21/2016 Insurance MEDICARE [facility] Care Teams Brand Executive Relationship Specialty Start Date End Date Daniel Pizano DO [address] [place] [id number] PCP - General Family Medicine 02/17/20
--- OUTSIDE RECORDS SUMMARY | 2025-02-04 14:23 | XMS_ITS | Encounter Summary ---
Author Organization [facility] Address [address] [place] [address] Care Team Providers Care Data Management Consultant Name Role Phone Daniel Pizano DO Primary Care Provider + Reason for Visit * Reason Comments Echo (SCAN) Encounter Details Date Type Department Care Team (Latest Contact Info) Description 01/22/2025 Scan HEALTH INFO SRVCS Scanned, Doc Med Group Echo (SCAN) Social History Tobacco Use Types Packs/Day Years [...] st Contact Info) Description 05/06/2025 8:20 AM [employer]PER[employer] Office Visit [facility] Medical Group Family & Internal Medicine - [place] [address] [place] [address] Daniel Pizano DO [address] [place] [address] documented as of this encounter Procedures Procedure Name Priority Date/Time Associated Diagnosis Comments ECHO GENERIC (SCAN ORDER) 01/22/2025 documented in this encounter Results * ECHO GENERIC (SCAN ORDER) (01/22/2025) Anatomical Region Laterality Modality Other 01/22/2025 us Doc Med Group Scanned SCANNING Final Resu lt documented in this encounter Visit Diagnoses Not on filedocumented in this encounter Additional Health Concerns Assessment Noted Time PHQ-9 Depression Total Score: 6 06/25/19 21 9:15 AM [employer] documented as of this encounter Care Teams Data Management Consultant Relationship Specialty Start Date End Date Daniel Pizano DO [address] [place] [id number] PCP - General FAMILY PRACTICE 11/28/19 documented as of this encounter
== END 2025-02-04 13:27 | disposition home or self-care (01) ==
PROVIDERS: PCP Student in an Organized Health Care Education/Training Program; Visit Provider Student in an Organized Health Care Education/Training Program
DX: R29.6 Repeated falls (principal); R55 Syncope and collapse
CPT/HCPCS: 93880

== ENCOUNTER 2025-03-26 17:42 | Emergency (ER) | payer MEDICARE, SELFPAY ==
[2025-03-26] VITALS (14 sets, daily range): BP systolic 145–164; BP diastolic 87–128; PULSE 69–87; RESP 12–21; TEMP 36.9; O2SAT 97–100
--- NOTE | ~2025-03-26 | CT_ITS ---
EXAMINATION: CT thoracic and lumbar spine without contrast: DATE: 03/26/2025. INDICATION: Trauma due to fall. Pain. TECHNIQUE: CT was performed through the thoracic spine and lumbar spine without contrast and reviewed in multiple projections. COMPARISON: None. FINDINGS: No acute bony lesions out thoracic and lumbar vertebrae. No compromise of thecal sac and neural foramina and in the thoracic region. Advanced degenerative disc changes in the lumbar spine at L2-3, L3-4, L4-5 and L5-S1 levels. Facet arthropathy. Significant stenosis of the thecal sac and lateral recess predominantly at L3-4, L4-5 levels are noted degenerative changes. IMPRESSION: 1. No acute bony lesions out thoracic and lumbar vertebrae. 2. Severe multilevel degenerative changes in the lumbar spine with facet arthropathy as described above. Evidence of spinal stenosis and compromise of lateral recesses predominantly at L3-4 and L4-5 levels. 3. Calcific atherosclerotic changes are thoracic and abdominal aorta. Calcific changes of aortic valve cusps in the chest suggesting some degree of aortic stenosis. Please correlate with echocardiographic findings. Reviewed, dictated and finalized at location [facility] IMPRESSION: 1. No acute bony lesions out thoracic and lumbar vertebrae. 2. Severe multilevel degenerative changes in the lumbar spine with facet arthro jenni as described above. Evidence of spinal stenosis and compromise of lateral recesses predominantly at L3-4 and L4-5 levels. 3. Calcific atherosclerotic changes are thoracic and abdominal aorta. Calcific changes of aortic valve cusps in the chest suggesting some degree of aortic navin nosis. Please correlate with echocardiographic findings.
--- OUTSIDE RECORDS SUMMARY | 2025-03-26 17:47 | XMS_ITS | Encounter Summary ---
Author Organization [facility] Address [address] [place] [address] Care Team Providers Care Poultry Scalder Name Role Phone Daniel Pizano DO Primary Care Provider + Encounter Details Date Type Department Care Team (Late Contact Info) Description 01/30/2025 Results Follow-Up [facility] Family & Internal Medicine [facility] [address] [place] [address] Daniel Pizano DO [address] [place], [place] [phone] THYROXINE, FREE (FT4), THYROID STIM HORMONE TSH [...] (Late Contact Info) Description 05/06/2025 8:20 AM DIMENSION MILL WORKER Office Visit [facility] Family & Internal Medicine - [place] [address] [place] [address] Daniel Pizano DO [address] [place] [address] documented as of this encounter Visit Diagnoses Not on filedocumented in this encounter Additional Health Concerns Assessment Noted Time PHQ-9 Depression Total Score: 6 06/25/19 21 9:15 AM DIMENSION MILL WORKER documented as of this encounter Care Teams Poultry Scalder Relationship Specialty Start Date End Date Daniel Pizano DO [address] [place] [address] PCP - General FAMILY PRACTICE 11/28/19 documented as of this encounter
--- OUTSIDE RECORDS SUMMARY | 2025-03-26 17:47 | XMS_ITS | Encounter Summary ---
Author Organization [facility] Address [address] [place] [address] [place] [address] Care Team Providers Care Assistant Prosecuting Attorney Name Role Phone Unavailable Primary Care Provider Unavailabl e Encounter Details Date Type Department Care Team (Late st Contact Info) Description 11/08/2023 Lab Requisition [facility] Physician [facility] - DermPath Lab [address] [facility], [place] [address] Caryn Su MD [address] [facility] 3 [place] [address] Social History Tobacco Use Types Packs/Day Years Used Date Smoking Tobacco: Never Assessed Sex and Gender Information Value Date Recorded Sex Assigned at Not on file Legal Sex Male 6:32 PM DOOR PERSON Gender Identity Not on file Sexual Orientation Not on file documented as of this encounter Plan of Treatment Not on file documented as of this encounter Procedures Procedure Name Priority Date/Time Associated Diagnosis Comments DERMATOPATHOLOGY Routine 11/08/2023 1:11 PM CDT documented in this encounter Results * DERMATOPATHOLOGY (11/08/2023 1:11 PM CDT) Case Report Dermatopathology Report Case: [id number] Authorizing Provider: Caryn Su MD Collected: 11/08/2023 01:11 PM Ordering Location: [facility] - Received: 11/10/2023 07:04 AM DermPath [...] specimen consists of a shave biopsy measuring [id number] mm. Jar 0. 2:31 PM CDT DERMATOPATHOLOGY [...] characteristic determined by the Dermatopathology Laboratory at [facility], directed by Dr. Fariba Echols. These tests need not be, and therefore are not, approved by the [place] Food and Drug Administration. The tests are used for clinical purposes. Billing Codes Specimen Charges Stain Charges 53628 1 4 2:31 PM CDT DERMATOPATHOLOGY LABORATORY Embedded Images 2:31 PM CDT DERMATOPATHOLOGY LABORATORY Pathology/Cytolo gy TISSUE SPECIMEN FROM SKIN / Unknown 11/08/2023 1:11 PM CDT 11/10/2023 7:04 AM CDT Caryn Su MD LAB - PATHOLOGY/CYTOLOGY OR DERABLES Final Result DERMATOPATHOLOGY LABORATORY [facility] - Department of Dermatology [address] [place] [address], [facility] [phone] documented in this encounter Visit Diagnoses Not on filedocumented in this encounter
--- OUTSIDE RECORDS SUMMARY | 2025-03-26 17:47 | XMS_ITS | Clinical Summary ---
Author Organization [facility] Address [address] [place] [address] Care Team Providers Care Mold Breaker Name Role Phone Daniel Pizano DO Primary Care Provider + Allergies No known active allergies Medications vitamin B-12 (CYANOCOBALAMIN) 1000 mcg tablet 1 tablet (1,000 mcg total). 5 Active atorvastatin 80 MG tabletIndications:D yslipidemia Take 1 tablet (80 mg total) by mouth daily. 90 tablet 3 1 Active amiodarone (PACERONE) 200 MG tablet Take 1 tablet (200 mg total) by mouth daily. 2 Active isosorbide mononitrate ER (IMDUR) 30 MG 24 hr tabletIndications:A therosclerosis of [place] coronary artery of [place] heart without angina pectoris TAKE 1 TABLET BY MOUTH DAILY 90 tablet 1 3 Active cholecalciferol (VITAMIN D3) 125 MCG (5000 UT) Tab Take 2 tablets (10,000 Units total) by mouth daily. Active Multiple Vitamin (MULTIVITAMIN ADULT OR) Active hydroCHLOROthiazide (HYDRODIURIL) 25 MG tablet Take 1 tablet (25 mg total) by mouth every morning. 30 tablet 3 Active furosemide (LASIX) 40 MG tablet Take 1 tablet (40 mg total) by mouth daily. Active triamcinolone (KENALOG) 0.1 % cream 3 Active apixaban (ELIQUIS) 2.5 MG tablet Take 1 tablet (2.5 mg total) by mouth 2 (two) times daily. 4 Active mupirocin (BACTROBAN) 2 % ointment 5 Active ferrous sulfate, 65 mg elemental, 325 (65 FE) MG tablet Take 1 tablet (325 mg total) by mouth daily. Active irbesartan (AVAPRO) 150 MG tablet Take 1 tablet (150 mg total) by mouth daily. 5 Active levothyroxine (SYNTHROID) 88 MCG tabletIndications:A cquired hypothyroidism TAKE 1 TABLET BY MOUTH EVERY MORNING 90 tablet 1 5 Active omeprazole (PRILOSEC) 20 MG capsuleIndications: Gastroesophageal reflux disease, unspecified whether esophagitis present TAKE 1 CAPSULE BY MOUTH DAILY 90 capsule 1 5 Active gabapentin (NEURONTIN) 300 MG capsuleIndications: CFS (chronic fatigue syndrome) TAKE 1 CAPSULE BY MOUTH TWICE DAILY 180 capsule 1 5 Active Active Problems Problem Noted Date Diagnosed Date CKD (chronic kidney disease) stage 4, GFR 15-29 ml/min 07/07/2022 Acquired hypothyroidism 06/10/2021 Medication side effects 06/10/2021 At risk for amiodarone toxicity with rat exterminator u se 09/09/2020 (HFpEF) heart failure with preserved ejection fr action 07/09/2020 Benign prostatic hyperplasia without lower urinary [...] accident 11/03/2016 Coronary artery disease invo lving [place] coronary artery of [place] heart without angina pectoris 09/22/2016 Overview (08/04/2021): Coronary artery disease of [place] artery of [place] heart with stable angina pectoris CFS (chronic fatigue syndrome) 09/22/2016 Overview (12/23/2019): Chronic fatigue Dizziness and giddiness 09/22/2016 Overview (06/11/2020): Dizziness Ventricular premature beats 03/16/2016 Overview (12/23/2019): Frequent PVCs Chronic anticoagulation 12/21/2015 Overview (12/23/2019): Chronic anticoagulation Dyslipidemia 12/21/2015 Overview (12/23/2019): Dyslipidemia Dyslipidemia Shortness of breath 12/21/2015 Overview (06/11/2020): MCKEON (dyspnea on exertion) Labile essential hypertension 12/21/2015 Overview (12/23/2019): Labile essential hypertension Pulmonary hypertension 12/21/2015 Overview (12/23/2019): Pulmonary HTN terminal clerk (current) use of anticoagulants 2015 Overview (08/04/2021): Chronic anticoagulation Pain in extremity 03/20/2014 Paroxysmal atrial fibrillation 09/14/2013 Overview (06/11/2020): ATRIAL FIBRILLATION ATRIAL FIBRILLATION Gastroesophageal reflux disease 09/14/2013 Overview (12/23/2019): ESOPHAGEAL REFLUX Dyslipidemia, goal LDL below 100 09/14/2013 Overview (06/11/2020): MIXED HYPERLIPIDEMIA Osteoarthrosis 11/29/2011 Resolved Problems Problem Noted Date Diagnosed Date Resolved Date Claudication 08/03/2022 12/22/2022 Legionnaires' disease 06/11/20202021 Encounters Date Type Department Care Team Description 03/05/2025 Scan [facility] Scanned, [facility] 02/14/2025 Telephone [facility] Internal [address] [phone] Daniel Pizano, DO Information 02/06/[address] [address] Daniel Pizano, DO Results 02/04/2025 Scan [facility] INFO [facility] Scanned, [facility] Ultrasound (SCAN) 01/30/2025 Results Follow-Up [facility] Internal [address] [address] Daniel Pizano, DO THYROXINE, FREE (FT4), THYROID STIM HORMONE TSH 01/24/2025 9:40 AM CDT Laboratory Only [address] [address] Daniel Pizano, DO 01/24/2025 9:20 AM CDT Allied Health/Nurse Visit [address] [address] Daniel Pizano, DO Allied Health Visit 01/24/2025 Travel 01/22/2025 Scan [facility] Scanned, [facility] Echo (SCAN) 01/22/[address] [address] Daniel Pizano, DO Orders 01/21/2025 Telephone [facility] Internal [address] [address] Daniel Pizano, DO Lab Order 01/20/2025 9:00 AM CDT Office Visit [facility] Internal Medicine [facility] [address] [place] [address] Daniel Pizano, Hypertension; Hyperlipidemia; Hypothyroidism; Atrial Fibrillation; CKD Follow-up 01/20/2025 Telephone [facility] Family & Internal Medicine [facility] [address] [place] [address] Daniel Pizano, DO Question 01/20/2025 Travel 01/16/2025 Scan HEALTH INFO SRVCS Scanned, [facility] 01/10/2025 9:30 AM CDT Office Visit [facility] Physical Therapy [address] [facility] [address] [place] [phone] Daniel Pizano, Tiff Sterling, MOLDING UTILITY WORKER Balance Problem 01/10/2025 Travel 01/07/2025 9:30 AM CDT Office Visit [facility] Physical Therapy [address] [phone] Daniel Pizano, Tiff Sterling, MOLDING UTILITY WORKER Balance Problem 01/07/2025 Travel 01/03/2025 8:45 AM CDT Office Visit [facility] Physical Therapy [address] [facility] [address] [address] Daniel Pizano, Chaz Esteban, PT Balance Problem 01/03/2025 Travel 12/31/2024 8:45 AM CDT Office Visit [facility] Physical Therapy [address] [facility] [address] [phone] Daniel Pizano, Tiff Sterling, MOLDING UTILITY WORKER Balance Problem 12/31/2024 Travel 12/27/2024 8:45 AM CDT Office Visit [facility] Physical Therapy [address] [facility] [address] [place] [phone] Daniel Pizano DO Tolle, Lisa C, PT Balance Problem 12/27/2024 Travel 12/24/2024 8:45 AM CDT Office Visit [facility] Physical Therapy [address] [place] [phone] Daniel Pizano DO Tolle, Lisa C, PT Balance Problem 12/24/2024 Travel from Last 3 Months Immunizations Immunization [...] 50 MCG/0.5 ML (SPIKEVAX) 02/15/2024 MODERNA COVID-19 (EXERCISE SPECIALIST SANTHOSH CIERA), MRNA, LNP-S, PF, 50 MCG/ [...] st Contact Info) Description 05/06/2025 8:20 AM HOTEL DESK CLERK Office Visit [facility] Family & Internal Medicine [address] [address] Daniel Pizano [address] [place] [address] Health Maintenance Due Date Last Done Comments ASCVD Statin 1935 Annual Medicare Wellness Visit 2002 DTaP, Tdap and Td Vaccines (2 - Td or Tdap) 10/31/2024 10/31/2014, 05/25/2011, 05/25/2011, Additional history exists COVID-19 Vaccine (2024- season) 2024 02/15/2024, 04/14/2023, 01/27/2022, Additional history exists Influenza Adult (#1) 2025 02/15/2024, 02/02/2023, 02/02/2023, Additional history exists Pneumococcal Vaccine: 50+ Years Completed 02/14/2018, 11/21/2016 Zoster Vaccines Completed 02/26/2020, 12/28/2019 RSV Immunization or 60+ Years Completed 04/14/2023 PHQ-2 (Physician Sun'Aq) Completed 07/16/2024 Hepatitis A Vaccines Aged Out No long er eligible based on patient's age to complete this topic Meningococcal B Vaccine Aged Out No l onger eligible based on patient's age to complete this topic Meningococcal Vaccine Aged Out No lalo janice eligible based on patient's age to complete this topic RSV Immunizations Under 20 Months Aged Out No longer eligible based on patient's age to complete this topic Procedures Procedure Name Priority Date/Time Associated Diagnosis Comments US CAROTID DUPLEX ARLETH Routine 02/04/2025 12:00 AM CDT Multiple falls Near syncope ULTRASOUND GENERIC (SCAN ORDER) 02/04/2025 COLLECTION VENOUS BLOOD VENIPUNCTURE Routine 01/24/2025 9:47 AM CDT Acquired hypothyroidism THYROID STIM HORMONE TSH Routine 01/24/2025 9:46 AM CDT Acquired hypothyroidism THYROXINE, FREE (FT4) Routine 01/24/2025 9:46 AM CDT Acquired hypothyroidism ECHO GENERIC (SCAN ORDER) 01/22/2025 COLLECTION VENOUS BLOOD VENIPUNCTURE Routine 01/20/2025 9:29 AM CDT Acquired hypothyroidism from Last 3 Months Results * US CAROTID DUPLEX ARLETH (02/04/2025 12:00 AM CDT) Anatomical Region Laterality Modality NA Ultrasound 02/04/2025 us Daniel Pizano DO ULTRASOUND Final Re sult * ULTRASOUND GENERIC (SCAN ORDER) (02/04/2025) Anatomical Region Laterality Modality Other 02/04/2025 us [facility] Scanned SCANNING Final Resu lt * THYROXINE, FREE (FT4) (01/24/2025 9:46 AM CDT) FREE T4 1.35 0.76 - 1.46 NG/DL 01/24/2025 4:37 PM CDT [facility] 01/24/2025 9:46 AM CDT us Daniel Pizano DO LABORATORY Final Re sult [facility] [address] [place] [address], * (ABNORMAL) THYROID STIM HORMONE TSH (01/24/2025 9:46 AM CDT) TSH 5.799(H) 0.358 - 3.740 uIU/ML 01/24/2025 4:37 PM CDT [facility] 01/24/2025 9:46 AM CDT us Daniel Pizano DO LABORATORY Final Re sult [facility] [address] [place] [address], [place] [phone] * ECHO GENERIC (SCAN ORDER) (01/22/2025) Anatomical Region Laterality Modality Other 01/22/2025 us [facility] Scanned SCANNING Final Resu lt from Last 3 [place] [address] MEDICARE [facility] Care Teams Mold Breaker Relationship Specialty Start Date End Date Daniel Pizano DO [address] [place] [id number] PCP - General FAMILY PRACTICE 11/28/19
--- OUTSIDE RECORDS SUMMARY | 2025-03-26 17:47 | XMS_ITS | Encounter Summary ---
Author Organization [facility] Address [address] [place] [address] [place] [address] Care Team Providers Care Hcc Coders Name Role Phone Unavailable Primary Care Provider Unavailabl e Encounter Details Date Type Department Care Team (Late st Contact Info) Description 07/15/[address] 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 Physician [facility] - Received: 07/16/2024 06:42 AM DermPath Lab [...] calf.The specimen consists of an ellipse measuring [id number] mm and is oriented with the notch [...] characteristic determined by the Dermatopathology Laboratory at [facility], directed by Dr. Fariba Echols. These tests need not be, and therefore are not, approved by the [place] Food and Drug Administration. The tests are used for clinical purposes. Billing Codes Specimen Charges Stain Charges 96793 1 12:52 PM CDT DERMATOPATHOLOGY LABORATORY Embedded Images 12:52 PM CDT DERMATOPATHOLOGY LABORATORY Pathology/Cytolo gy TISSUE SPECIMEN FROM SKIN / Unknown 07/15/2024 11:24 AM CDT 07/16/2024 6:42 AM CDT us Eve Rojas MD LAB - PATHOLOGY/CYTOLOGY ORD ERABLES Final Result DERMATOPATHOLOGY LABORATORY [facility] - Department of Dermatology [address], [address] [phone] documented in this encounter Visit Diagnoses Not on filedocumented in this encounter
--- OUTSIDE RECORDS SUMMARY | 2025-03-26 17:47 | XMS_ITS | Clinical Summary ---
Author Organization [facility] Address [address] [facility] [place] [address] Care Team Providers Care Bend Up Name Role Phone Unavailable Primary Care Provider Unavailabl e Source Comments [facility],non-owned Affiliates and Associated Physician Practices is amultiple site organization consisting of ambulatory clinics and hospital sitesin [place], [place], [place] and [place]. This disclosure is being madepursuant to the Care Everywhere program and may not contain all information available regarding this patient. 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
--- OUTSIDE RECORDS SUMMARY | 2025-03-26 17:47 | XMS_ITS | Encounter Summary ---
Author Organization [facility] Address [address] [place] [address] [place] [address] Care Team Providers Care Laboratory Cureman Name Role Phone Unavailable Primary Care Provider Unavailabl e Encounter Details Date Type Department Care Team (Late st Contact Info) Description 05/15/2024 Lab Requisition [facility] Physician Group - DermPath Lab [address] [facility], [place] [address] Caryn Su MD [address] [facility] 3 [place] [address] Social History Tobacco Use Types Packs/Day Years Used Date Smoking Tobacco: Never Assessed Sex and Gender Information Value Date Recorded Sex Assigned at Not on file Legal Sex Male 6:32 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 Gender Identity Not on file Sexual Orientation Not on file documented as of this encounter Plan of Treatment Not on file documented as of this encounter Procedures Procedure Name Priority Date/Time Associated Diagnosis Comments DERMATOPATHOLOGY Routine 05/15/2024 8:29 AM CARTOGRAPHY TEACHER documented in this encounter Results * DERMATOPATHOLOGY (05/15/2024 8:29 AM CARTOGRAPHY TEACHER) Case Report Dermatopathology Report Case: [id number] Authorizing Provider: Caryn Su MD Collected: 05/15/2024 08:29 AM Ordering Location: [facility] Physician [facility] - Received: 05/15/2024 01:41 PM DermPath Lab Pathologist: Nelida Woodruff MD Specimen: Skin, left calf 5 4:11 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 DERMATOPATHOLOGY LABORATORY Final Diagnosis Specimen A. 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 The specimen consists of a shave biopsy measuring [id number] mm. Jar 0. 4:11 PM [facility] DERMATOPATHOLOGY LABORATORY Microscopic Description Specimen A. SKIN, left calf: Arising in the epidermis and extending into the dermis there are irregularly shaped aggregates of keratinocytes showing evidence of premature cornification. 4:11 PM [facility] DERMATOPATHOLOGY LABORATORY Disclaimer An external and internal positive and negative controls are appropriate for the histochemical, immunohistochemical and immunofluorescence stain(s) in this case (if any), except where stated explicitly. The performance characteristics of the stain(s) cited in this report were developed and its performance characteristic determined by the Dermatopathology Laboratory at [facility], directed by Dr. Fariba Echols. These tests need not be, and therefore are not, approved by the [place] Food and Drug Administration. The tests are used for clinical purposes. Billing Codes Specimen Charges Stain Charges 34336 1 4:11 PM [facility] DERMATOPATHOLOGY LABORATORY Embedded Images 4:11 PM [facility] DERMATOPATHOLOGY LABORATORY Pathology/Cytolo gy TISSUE SPECIMEN FROM SKIN / Unknown 05/15/2024 8:29 AM CARTOGRAPHY TEACHER 05/15/2024 1:41 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 Caryn Su MD LAB - PATHOLOGY/CYTOLOGY OR DERABLES Final Result DERMATOPATHOLOGY LABORATORY [facility] - Department of Dermatology [address] [place] [address], [facility] [phone] documented in this encounter Visit Diagnoses Not on filedocumented in this encounter
--- OUTSIDE RECORDS SUMMARY | 2025-03-26 17:47 | XMS_ITS | Encounter Summary ---
Author Organization [facility] Address [address] [facility] [address] [place] [address] Care Team Providers Care Lamp Stack Developer Name Role Phone William Oneal Primary Care Provider [phone] Geoff Meadows MD Unavailable [phone] Castro Loza MD Primary Care Provider Daniel Pizano DO Primary Care Provide r Encounter Details Date Type Department Care Team (Late st Contact Info) Description 09/22/2016 Orders Only [facility] ProviderKylie MD [address] [place] [address] Social History Tobacco Use Types Packs/Day Years Used Date Smoking Tobacco: Former Alcohol Use Standard Drinks/Week Comments Yes 0 (1 standard drink = 0.6 oz pur e alcohol) Sex and Gender Information Value Date Recorded Sex Assigned at Not on file Legal Sex Male 7:53 PM CMM OPERATOR Gender Identity Not on file Sexual Orientation Not on file documented as of this encounter Functional Status documented as of this encounter Plan of [...] on filedocumented in this encounter Care Teams Lamp Stack Developer Relationship Specialty Start Date End Date JmWilliam [address] [place] [address] PCP - General 12/12/07 08/17/17 Castro Loza MD [address] [place] [address] PCP - General Family Practice 08/18/17 02/12/20 Daniel Pizano DO [address] [place] [phone] PCP - General Family Medicine 02/13/20 Geoff Meadows MD [address] [place] [address] Ice Cream Maker Cardiology 09/28/16 08/17/17 documented as of this encounter
--- OUTSIDE RECORDS SUMMARY | 2025-03-26 17:47 | XMS_ITS | Clinical Summary ---
Author Organization [facility] [address] Address [address] [place] [address] Care Team Providers Care Rehabilitation Therapy Aide Name Role Phone Beverly Morejonchary Vickey Primary Care Provide r Allergies No known active allergies Medications omeprazole (PriLOSEC) 20 mg capsule take 1 capsule (20MG) by oral route every day before a meal 0 3 Active gabapentin (NEURONTIN) 300 mg capsule Take 1 capsule (300 mg total) by mouth 2 (two) times a day Active gkyqiyfo35-abqf- Lmfolate-algal 27 mg iron-1.13 mg-581.92 mg capsule Take by mouth Active cyanocobalamin (Vitamin B-12) 100 mcg tabletIndication s:Prevention of Vitamin B12 Deficiency Take 1 tablet (100 mcg total) by mouth daily Active acetaminophen (ARTHRITIS PAIN RELIEF, ACETAM, ORAL) Take 650 mg by mouth Active hydroCHLOROthiaz cameron (HYDRODIURIL) 25 mg tablet Take 1 tablet (25 mg total) by mouth daily 4 Active furosemide (LASIX) 40 mg tablet Take 1 tablet (40 mg total) by mouth daily Active Eliquis 2.5 mg tablet TAKE 1 TABLET BY MOUTH TWICE DAILY 180 tablet 3 5 Active irbesartan (AVAPRO) 150 mg tablet Take 1 tablet (150 mg total) by mouth daily 5 Active levothyroxine (SYNTHROID) 88 mcg tablet Take 1 tablet (88 mcg total) by mouth composition teacher before breakfast 5 Active ferrous sulfate 325 mg (65 mg of elemental iron) tabletIndication s:Iron Deficiency Anemia Take 1 tablet (325 mg total) by mouth daily with breakfast Active amiodarone (PACERONE) 200 mg tabletIndication s:Atrial fibrillation, unspecified type (HCC) Take 1 tablet (200 mg total) by mouth every other day 5 Active atorvastatin (LIPITOR) 80 mg tablet TAKE 1 TABLET BY MOUTH DAILY 90 tablet 5 Active isosorbide mononitrate ER (IMDUR) 30 mg 24 hr tablet TAKE 1 TABLET BY MOUTH DAILY 90 tablet 5 Active Active Problems Problem Noted Date Diagnosed Date Stage 4 chronic kidney disease 03/21/2023 Claudication 08/03/2022 Acquired hypothyroidism 06/10/2021 Medication side effects 06/10/2021 At risk for amiodarone toxicity with residential u se 09/09/2020 Chronic heart failure with p reserved ejection fraction (CMS/HCC) 07/09/2020 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 04/03/2019 Bradycardia 08/23/2017 H/O: CVA (cerebrovascular accident) 11/03/2016 Abnormal nuclear stress test 11/03/2016 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 09/22/2016 Overview (09/30/2016): 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 Dizziness 09/22/2016 [...] Encounters Date Type Department Care Team Description 02/10/2025 Telephone [facility] Cardiology [address] [place] [id number] Gerda Lyn NP Dizziness; echo results; loss of balance 01/22/2025 1:00 PM CDT Ancillary Procedure [facility] Cardiology [address] [place] [address] Multiple falls; Near syncope from Last 3 Months Immunizations Immunization Administration Dates Next Due Influenza, Trivalent, IM (MDV) 03/12/2008 Surgical History Surgery Date Site/Laterality Comments OTHER SURGICAL HISTORY SVT: ablation KNEE ARTHROPLASTY 2007 Knee replacement OTHER SURGICAL HISTORY minimal atherosclerotic [...] on file 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 Gender Identity Not on file Sexual Orientation Not on file Last Filed Vital Signs Vital Sign Reading Time Taken Comments Blood Pressure 130/78 2024 9:40 AM CDT Pulse 61 2024 9:40 AM CDT Temperature 36.5 C (97.7 F) 03/05/2020 10:19 AM BLUEPRINT REPRODUCER Respiratory Rate 16 09/29/2021 2:54 PM CDT [...] Tdap) 10/31/2024 10/31/2014, 05/25/2011, 05/25/2011 Covid-19 Vaccine (2024-2 6 season) 2024 01/27/2022, 10/14/2021, 02/20/2021, Additional history exists Influenza Vaccine (#1) 2024 , 02/02/2023, 01/27/2022, Additional history exists Pneumococcal vaccine 65+ Completed 02/13/2018, 10/30 Zoster Vaccine Completed 02/26/2020, 12/28/2019 Procedures Procedure Name Priority Date/Time Associated Diagnosis Comments TRANSTHORACIC ECHO (TTE) COMPLETE W DOPPLER/CF WO CONTRAST Routine 01/22/2025 1:41 PM CDT Multiple falls Near syncope from Last 3 Months Results * TRANSTHORACIC ECHO (TTE) COMPLETE W DOPPLER/CF WO CONTRAST (01/22/2025 1:41 PM CDT) EF Mod BP 60 % CONS SCIMAGE Anatomical Region Laterality Modality Ultrasound 01/22/2025 12:5 4 PM CDT Narrative 01/22/2025 4:10 PM CDT [facility] Cardiology [address] [facility] [address], [place] [address] [address] [facility] [address], [place] [address] P:[phone] P:[phone] Echocardiographic Report Patient Name: BILLY ARHSAD E : 1935 Study Date: 01/22/2025 12:54:08 PM Sex: M Magnetic Prospecting Supervisor: Roya Reina)(CT), [facility] Location: [place] Ref Provider: YOUSIF MOREJON Height(Cm): 175 BSA: [...] calcification. Electronically Signed By: Nir Velázquez MD, [facility] 01/22/2025 4:10:18 PM CDT Procedure Note Nir Veálzquez MD - 01/22/2025 [facility] Cardiology [address] [facility] [address], [place] [address] [address] [facility] [address], [place] [address] P:[phone] P:[phone] Echocardiographic Report Patient Name: BILLY ARSHAD E : 1935 Study Date: 01/22/2025 12:54:08 PM Sex: M Magnetic Prospecting Supervisor: Roya Reina)(CT), [facility] Location: [facility] Provider: YOUSIF MOREJON Height(Cm): 175 BSA: 2.02 [...] calcification. Electronically Signed By: Nir Velázquez MD, [facility] 01/22/2025 4:10:18 PM CDT Yousif Morejon DO CV ECHO PROCEDURES Fi nal Result from Last 3 Months Insurance MEDICARE MEDICARE [facility] MEDICARE SUPPLEMENT Care Teams Rehabilitation Therapy Aide Relationship Specialty Start Date End Date Yousif Morejon DO [address] [place] [id number] PCP - General Family Medicine 02/13/20
--- OUTSIDE RECORDS SUMMARY | 2025-03-26 17:48 | XMS_ITS | Encounter Summary ---
Author Organization [facility] Address [address] [place] [address] [place] [address] Care Team Providers Care Retail General Manager Name Role Phone Unavailable Primary Care Provider Unavailabl e Encounter Details Date Type Department Care Team (Late st Contact Info) Description 11/20/2023 Lab Requisition [facility] - DermPath Lab [address] [facility] [place] [id number] Caryn Su MD [address] [facility] [address] [place] [address] Social History Tobacco Use Types Packs/Day Years Used Date Smoking Tobacco: Never Assessed Sex and Gender Information Value Date Recorded Sex Assigned at Not on file 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 Gender Identity Not on file Sexual Orientation Not on file documented as of this encounter Plan of Treatment Not on file documented as of this encounter Procedures Procedure Name Priority Date/Time Associated Diagnosis Comments DERMATOPATHOLOGY Routine 11/20/2023 10:3 4 AM CDT documented in this encounter Results * DERMATOPATHOLOGY (11/20/2023 10:34 AM CDT) Case Report Dermatopathology Report Case: [id number] Authorizing Provider: Caryn Su MD Collected: 11/20/2023 10:34 AM Ordering Location: [facility] - Received: 11/20/2023 04:02 PM DermPath Lab [...] of a non-oriented ellipse of skin measuring 22m37b5 mm. The epidermal surface is unremarkable. The [...] characteristic determined by the Dermatopathology Laboratory at [facility], directed by Dr. Fariba Echols. These tests need not be, and therefore are not, approved by the [place] Food and Drug Administration. The tests are used for clinical purposes. Billing Codes Specimen Charges Stain Charges 32068 1 4 3:58 PM CDT DERMATOPATHOLOGY LABORATORY Embedded Images 4 3:58 PM CDT DERMATOPATHOLOGY LABORATORY Pathology/Cytolo gy TISSUE SPECIMEN FROM SKIN / Unknown 11/20/2023 10:34 AM CDT 11/20/2023 4:02 PM CDT us Caryn Su MD LAB - PATHOLOGY/CYTOLOGY OR DERABLES Final Result DERMATOPATHOLOGY LABORATORY [facility] - Department of Dermatology [address] [place] [address], [facility] [phone] documented in this encounter Visit Diagnoses Not on filedocumented in this encounter
[2025-03-26] MEDS: ACETAMINOPHEN 325 MG TABLET 650 MG PO (18:36)
[2025-03-26] MEDS: TETANUS,DIPHTHERIA,AC PERTUSSIS ADULT (0.5 ML) BOOSTRIX IM (18:36)
[2025-03-26] MEDS: LIDOCAINE 5% PATCH 1 PATCH TRANSDERM (18:37)
--- NOTE | 2025-03-26 19:31 | ED.BACK ---
HPI - Back Pain/Injury General Chief Complaint: Back Pain/Injury Stated Complaint: fell last Monday, c/o back pain Time Seen by Provider: 03/26/25 17:52 History of Present Illness HPI Narrative: Patient had a fall last Monday because he was exhausted, has been in the hospital with his who was admitted, went home and fell asleep on the couch and when he woke up and was getting up to go to bed, he missed a step and fell back, hitting his back, did not hit his head, he did injure his elbows. Related Data Home Medications ?Medication ?Instructions ?Recorded ?Confirmed ?Last Taken ?Type amiodarone 200 mg tablet 200 mg PO DAILY 02/13/23 02/19/25 06/06/23 History gabapentin 300 mg capsule 300 mg PO BID 02/13/23 02/19/25 06/06/23 History isosorbide mononitrate 30 mg 30 mg PO DAILY 02/13/23 02/19/25 06/05/23 History tablet,extended release 24 hr levothyroxine 75 mcg capsule 88 mcg PO DAILY 02/13/23 02/19/25 06/06/23 History tohryqve-usadxiyb-ynpdd acid 400 1 tablet PO DAILY 02/13/23 02/19/25 06/06/23 History mcg-vit K 20 mcg-lycop 300 mcg tablet omeprazole 20 mg tablet,delayed 20 mg PO DAILY 02/13/23 02/19/25 06/06/23 History release atorvastatin 80 mg tablet 50 mg PO DAILY 06/06/23 02/19/25 06/06/23 History cyanocobalamin (vitamin B-12) 100 100 mcg PO DAILY 06/06/23 02/19/25 06/05/23 History mcg tablet Allergies Allergy/AdvReac Type Severity Reaction Status Date / Time No Known Allergies Allergy Verified 03/26/25 18:02 Review of Systems Review of Systems: All systems reviewed & are unremarkable except as noted in HPI and below PMFSH Past Medical History Medical History BMI 28.0-28.9,adult History of stroke Pulmonary hypertension Glaucoma Supraventricular tachycardia Peripheral neuropathy Cubital tunnel syndrome 2016 Carpal tunnel syndrome 2016 BPH w/o urinary obs/LUTS Vitamin B12 deficiency Mild aortic stenosis Umbilical hernia without mention of obstruction or gangrene 12/11/2017 Dizziness and giddiness Neuropathy Vitamin D deficiency Unspecified osteoarthritis, unspecified site Essential (primary) hypertension Pre-diabetes 02/01/2017 Hypogonadism in male 08/2011 GERD (gastroesophageal reflux disease) Stroke CAD in [place] artery Dyslipidemia, goal LDL below 100 Hx of supraventricular tachycardia CKD (chronic kidney disease) stage 3, GFR 30-59 ml/min Paroxysmal atrial fibrillation Surgical History Surgical History S/P tonsillectomy and adenoidectomy S/P carpal tunnel release Bilaterally S/P cubital tunnel release Bilaterally History of cataract extraction Bilaterally Hx of total knee arthroplasty right - 2006 Dr. Brad George at [place] History of shoulder surgery right - around 1989 Family History Family History Mother Hypertension Cerebrovascular accident Family history of malignant neoplasm of breast in first degree relative Father Family history of coronary artery disease Social History Social History Social History: The patient lives with his who is a durable power union representative for healthcare. The patient would like to be a DNR. The patient stated that he smoked many years ago and quit in 1965. He said he no longer drinks alcohol since he is on a blood thinner. He has 3 children. 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 Smoking packs per day: 1 Smoking cigarettes per day: 20.0 Years smoked: 12 Smoking pack-years: 12.00 Smoking status: Former smoker Tobacco type: cigarettes Second hand tobacco smoke exposure: No Smoking end date: 05/01/1965 Additional smoking assessment comments: 1PPD for 10 years Alcohol intake: former Alcohol use details: used to drink 5-6 drinks per day for half his life. Substance use: never Substance use type: does not use Lack of Transportation: YES Lack of Food: Never True Current Housing: I Have Housing Concerned About Future Housing: No Difficulty Paying Gas/Electric Bills: No Difficulty Paying for Meds: YES Currently Unemployed: No Education: High School Diploma/GED Difficulty w/ Childcare or Family Care: No Living arrangements: with family Gender identity (if verbalized by the patient): Male Sexual Orientation (if Verbalized by the Patient): Straight or Heterosexual Spiritual care concerns: No Exam Narrative: EXAMINATION OF ORGAN SYSTEMS/BODY AREAS: Constitutional: Vital signs per nursing GENERAL:[No acute distress, non-toxic appearing.] HEAD: Normal with no signs of head trauma. EYES: EOMI, conjunctiva normal ENT: Hearing grossly intact LUNGS: Nonlabored breathing. HEART: [Regular rate and rhythm] ABD: [Soft], [nontender to palpation] EXT: Normal range of motion; bilateral skin tears to upper arm, right much worse than left SKIN: Skin tears to upper arms, bruising to mid back NEURO: [Alert and oriented x 3. No gross focal sensory or strength deficits.] PSYCH: Normal affect Course Vital Signs Vital signs: Vital Signs Pulse Rate 78 03/26/25 17:49 Respiratory Rate 19 03/26/25 17:49 Temperature 98.4 F 03/26/25 17:57 Pulse Rate 69 03/26/25 19:16 Respiratory Rate 15 03/26/25 19:16 Blood Pressure 163/98 H 03/26/25 19:16 Pulse Oximetry 97 03/26/25 19:16 Oxygen Delivery Room Air 03/26/25 17:57 MDM - Back Pain/Injury MDM Narrative Medical decision making narrative: ED COURSE AND MEDICAL DECISION MAKIN-year-old male with acute back pain after falling when he missed a step few days ago. Normal motor and sensory exam. He does have skin tears to his upper arms, bruising to his mid back. Patient able to ambulate. No evidence of acute cord compression, osteomyelitis/discitis or cauda equina without saddle anesthesia, urinary retention/incontinence, numbness/tingling in lower extremities, fever, history of IV drug use, cancer or immunosuppression. Doubt AAA or aortic dissection without severe pain/discomfort or any neurovascular deficits. Tylenol and lidocaine patch given for symptomatic relief. Given his age I did obtain CT of his spine. Thankfully no acute fracture. On reevaluation, the symptoms are improved. Patient is able to rest more comfortably. Ambulating without difficulty. Patient is given return precautions and instructed to come back at any point in time for worsening pain, fevers, weakness, difficulty walking, urinary or fecal incontinence. Patient expressed understanding of instructions. Follow-up to spine surgeon provided. Patient and daughter at bedside agreeable to plan Discharge Plan Discharge Clinical Impression: Back injury Patient Disposition: Home Condition: Stable Instructions: Back Pain (ED) Additional Instructions: Please follow-up with the back surgeon, try the medications as prescribed, and if you have any worsening pain, especially if you have any new numbness or weakness your feet or legs or anything else concerning, please return to the emergency room. Patient Language: Portuguese Prescriptions: New lidocaine 5 % adhesive patch,medicated 1 patch topical DAILY Qty: 15 0RF Rx Instructions: leave on most painful area for up to 12 hrs acetaminophen [Tylenol Extra Strength] 500 mg tablet 1,000 mg PO Q6H PRN (Reason: pain) Qty: 50 0RF No Action isosorbide mononitrate 30 mg tablet extended release 24 hr 30 mg PO DAILY amiodarone 200 mg tablet 200 mg PO DAILY levothyroxine 75 mcg capsule 88 mcg PO DAILY gabapentin 300 mg capsule 300 mg PO BID omeprazole 20 mg tablet,delayed release (DR/EC) 20 mg PO DAILY oahfxcsk-pqv-cjlfq-vit K-lycop 400-20-300 mcg tablet 1 tablet PO DAILY Eliquis 2.5 mg Tablet 2.5 mg PO Q12HR Qty: 60 0RF atorvastatin 80 mg tablet 50 mg PO DAILY cyanocobalamin (vitamin B-12) 100 mcg Tablet 100 mcg PO DAILY furosemide 40 mg tablet 40 mg PO DAILY Qty: 90 3RF hydrochlorothiazide 25 mg tablet See Rx Instructions .ROUTE .COMPLEX Qty: 90 3RF Dose Instruction: TAKE 1 TABLET BY MOUTH DAILY Rx Instructions: TAKE 1 TABLET BY MOUTH DAILY irbesartan 150 mg tablet 150 mg PO DAILY Qty: 90 3RF Follow-up/Referrals: Jose Hyatt MD [Physician, Neurosurgery] - 3 Days Harinder,DO Daniel [Primary Care Provider]
== END 2025-03-26 19:52 | disposition home or self-care (01) ==
PROVIDERS: Emergency Provider Emergency Medicine; PCP Student in an Organized Health Care Education/Training Program
DX: S20.224A Contusion of middle back wall of thorax, initial encounter (principal); S41.112A Laceration without foreign body of left upper arm, initial encounter; S41.111A Laceration without foreign body of right upper arm, initial encounter; Z23 Encounter for immunization; I12.9 Hypertensive chronic kidney disease with stage 1 through stage 4 chronic kidney disease, or unspecified chronic kidney disease; N18.30 Chronic kidney disease, stage 3 unspecified; I48.0 Paroxysmal atrial fibrillation; I25.10 Atherosclerotic heart disease of native coronary artery without angina pectoris; I27.20 Pulmonary hypertension, unspecified; I35.0 Nonrheumatic aortic (valve) stenosis; H40.9 Unspecified glaucoma; E78.5 Hyperlipidemia, unspecified; E53.8 Deficiency of other specified B group vitamins; E55.9 Vitamin D deficiency, unspecified; R73.03 Prediabetes; G62.9 Polyneuropathy, unspecified; M19.90 Unspecified osteoarthritis, unspecified site; K21.9 Gastro-esophageal reflux disease without esophagitis; Z66 Do not resuscitate; Z96.651 Presence of right artificial knee joint; Z86.73 Personal history of transient ischemic attack (TIA), and cerebral infarction without residual deficits; Z87.891 Personal history of nicotine dependence; Z98.42 Cataract extraction status, left eye; Z98.41 Cataract extraction status, right eye; W10.9XXA Fall (on) (from) unspecified stairs and steps, initial encounter
CPT/HCPCS: 72128; 72131; 90471; 90715; 99284; A9270